=== PATIENT | male | born 1945 | race Caucasian/White ===

== ENCOUNTER → 2018-04-02 09:38 | Outpatient (CLI) | payer MEDICARE, OTHER, SELFPAY ==
--- NOTE | 2018-04-02 | DI.CT.S_ITS ---
PROCEDURE: CT HEAD/BRAIN WO CON INDICATIONS: HEADACHES TECHNIQUE: Noncontrast 4.5 mm thick angled axial sections acquired from the foramen magnum to the vertex, with coronal and sagittal reformats. For radiation dose reduction, the following was used: automated exposure control, adjustment of mA and/or kV according to patient size. COMPARISON: None. FINDINGS: Image quality: Excellent. CSF spaces: Basal cisterns are patent. No extra-axial fluid collections. The ventricles are symmetric in size and shape. Brain: No intracranial bleeds or masses. There is cerebral volume loss for age, with resultant ventricular and sulcal prominence. There are periventricular and deep white matter chronic small vessel ischemic changes. There is intracranial internal carotid artery atherosclerosis. Skull and face: Calvarium and visualized facial bones appear intact, without suspicious lesions. Sinuses: Visualized sinuses and mastoids are clear. IMPRESSION: Negative examination as above Dictated by: Sergio Hanna M.D. on 04/02/2018 at 10:08 Approved by: Sergio Hanna M.D. on 04/02/2018 at 10:10
--- NOTE | 2018-04-02 | DI.CT.S_ITS ---
PROCEDURE: CT SINUS SCREEN WO CON INDICATIONS: HEADACHES TECHNIQUE: Noncontrast 3.0 mm axial images acquired from the frontal sinuses to the mid-sella, with coronal and sagittal reformats. For radiation dose reduction, the following was used: automated exposure control, adjustment of mA and/or kV according to patient size. COMPARISON: [facility], MR, BRAIN WITHOUT CONTRAST, 12/07/2010, 14:09. [facility], CT, CT HEAD/BRAIN WO CON, 04/02/2018, 9:38. FINDINGS: Image quality: Excellent. Maxillary Sinuses: There is absence of portions of the medial cordero of the maxillary sinuses. Mucosal thickening is seen inferiorly. Ethmoid Air Cells: No bony remodeling or destruction. Moderate mucosal thickening is seen within the ethmoid air cells. Sphenoid Sinuses: No bony remodeling or destruction. Mild mucosal thickening is seen involving the anterior right sphenoid sinus. Frontal Sinuses: No bony remodeling or destruction. Sinuses are clear. Ostiomeatal Complexes: Ostiomeatal complexes are patent. However, they are constitutionally narrowed by infraorbital air cells. Miscellaneous: Visualized intra-orbital contents are normal. No michael bullosa or paradoxical turbinate curvature. There is moderate rightward nasal septal deviation. Note is made of bilateral lens replacements. IMPRESSION: Scattered areas of paranasal sinus disease can be seen. Absence of portions of the medial cordero of the maxillary sinuses. Please correlate with prior postoperative history. Differential diagnosis includes prior prominent inflammatory change. Constitutionally narrowed (yet patent) ostiomeatal complexes. Moderate rightward nasal septal deviation. Dictated by: Chalino Krishnamurthy M.D. on 04/02/2018 at 10:00 Approved by: Chalino Krishnamurthy M.D. on 04/02/2018 at 10:04
== END ==
PROVIDERS: PCP Family Medicine; Visit Provider Family Medicine
DX: R51 Headache (principal); J34.2 Deviated nasal septum; J32.4 Chronic pansinusitis
CPT/HCPCS: 70450; 70486

== ENCOUNTER → 2020-02-29 16:13 | Outpatient (CLI) | payer MEDICARE, OTHER, SELFPAY ==
--- NOTE | 2020-02-29 | DI.RAD.S_ITS ---
PROCEDURE: XR CHEST 2V INDICATIONS: SHORNTESS OF BREATH TECHNIQUE: 2 views of the chest were acquired. COMPARISON: [facility], CHEST 2 VIEW, 07/14/2017, 13:04. [facility], CHEST 2 VIEW, 12/04/2012, 8:33. FINDINGS: Surgical changes and devices: None. Lungs and pleura: Lungs are clear except for a slight degree of interstitial prominence. No pleural effusions or pneumothorax. Mediastinum: Mediastinal contours are normal. Heart size is normal. Bones and chest wall: No suspicious bony abnormalities. Soft tissues appear unremarkable. IMPRESSION: Mild interstitial prominence, no pneumonia seen. Dictated by: Jefferson Davis M.D. on 02/29/2020 at 16:37 Approved by: Jefferson Davis M.D. on 02/29/2020 at 16:38
== END ==
PROVIDERS: PCP Family Medicine; Referring Provider Family Medicine; Visit Provider Family Medicine
DX: R06.02 Shortness of breath (principal)
CPT/HCPCS: 71046

== ENCOUNTER → 2020-03-14 12:35 | Outpatient (CLI) | payer MEDICARE, OTHER, SELFPAY ==
[2020-03-15 17:05] LABS: COVID19 Sendout Not Detected (Not Detect)
== END ==
PROVIDERS: PCP Family Medicine; Visit Provider Nurse Practitioner
DX: Z11.59 Encounter for screening for other viral diseases (principal)
CPT/HCPCS: 87635

== ENCOUNTER → 2020-03-17 12:41 | Outpatient (CLI) | payer MEDICARE, OTHER, SELFPAY ==
--- NOTE | 2020-03-22 16:43 | PM.PFT.1 ---
Pulmonary Function Test Referral & Results Date Patient Seen: 03/17/20 Requesting provider: Ras Jay Results: The spirometry demonstrates an FVC of 2.66 L which is 61% of predicted. The FEV1 was measured at 1.66 L which is 52% of predicted. The FEV1/FVC ratio was 62 which is 85% of predicted. Following the administration of bronchodilator there was a 23% improvement in FEV1 and a 99% improvement in FEF 25-75%. Lung volumes show an SVC of 3.26 L which is 71% of predicted. The diffusing capacity was measured at 18.60 which is 57% of predicted. No hemoglobin value was provided, so no correction for potential anemia could be made, if appropriate. The maximum voluntary ventilation was reduced Interpretation: This study demonstrates moderately severe obstructive lung disease based on reduction FEV1. There is evidence of significant benefit following bronchodilator based on improvement in FEV1 and FEF 25-75% There is also [id number] restrictive lung disease based on reduction in SVC There is also [id number] reduction in diffusing capacity suggesting element of disease at the capillary alveolar level Altogether this is consistent with a diagnosis of COPD
== END ==
PROVIDERS: PCP Family Medicine; Referring Provider Family Medicine; Visit Provider Family Medicine
DX: R06.02 Shortness of breath (principal); J98.8 Other specified respiratory disorders; Z87.891 Personal history of nicotine dependence
CPT/HCPCS: 94060; 94726; 94729

== ENCOUNTER → 2020-03-23 14:40 | Outpatient (CLI) | payer MEDICARE, OTHER, SELFPAY ==
--- NOTE | 2020-03-23 15:00 | DI.ECHO.S_ITS ---
Echocardiogram Report + + :Name: ROSE MARIE LAMA Study Date: 03/23/2020 Height: 70 in : :[facility] Weight: 187 lb : : Gender: Male BSA: 2.0 m2 : :: 1945 Age: 74 yrs BP: 137/89 mmHg: :Reason For Study: SHORTNESS OF BREATH : :Ordering Physician: CLAUDETTE, : :CARMELO HAYWOOD Performed By: Alexandra Cardona : :Referring: CARMELO WILKINS MD : + + Interpretation Summary Left ventricular wall thickness is mildly increased. Left ventricular systolic function is normal without focal wall motion abnormalities. The ejection fraction is estimated to be 55-60%. Diastolic parameters suggest a relaxation abnormality of the left ventricle, consistent with probable normal filling pressures. The right ventricle is normal size. Right ventricular systolic function is at the lower limits of normal. The right ventricular systolic pressure is estimated to be at least 27 mmHg based on an estimated right atrial pressure of 3 mm Hg. Both atria are normal in size. There is mild to moderate mitral regurgitation. There is mild to moderate tricuspid regurgitation. There is no other significant valvular heart disease. The ascending aorta is mildly enlarged. Procedure: A two-dimensional transthoracic echocardiogram with color flow and Doppler was performed. The study quality was technically adequate. There is no prior echocardiogram noted for this patient. Left Ventricle: The left ventricle is normal in size. Left ventricular wall thickness is mildly increased. Left ventricular systolic function is normal without focal wall motion abnormalities. The ejection fraction is estimated to be 55-60%. Diastolic parameters suggest a relaxation abnormality of the left ventricle, consistent with probable normal filling pressures. Right Ventricle: The right ventricle is normal size. Right ventricular systolic function is at the lower limits of normal. Atria: Both atria are normal in size. There is no Doppler evidence for an interatrial shunt. Mitral Valve: The mitral valve is normal in structure but abnormal in function. There is mild to moderate mitral regurgitation. Aortic Valve: The aortic valve is trileaflet. The aortic valve opens well. The aortic valve is slightly calcified. There is no aortic valve stenosis. There is trace aortic regurgitation. Tricuspid Valve: The tricuspid valve leaflets are thin and pliable. The right ventricular systolic pressure is estimated to be at least 27 mmHg based on an estimated right atrial pressure of 3 mm Hg. There is mild to moderate tricuspid regurgitation. Pulmonic Valve: The pulmonic valve is not well seen, but is grossly normal. There is no pulmonic valvular regurgitation. There is no other significant valvular heart disease. Great Vessels: The aortic root is normal size. The ascending aorta is mildly enlarged. The IVC is of normal diameter and collapses greater than 50% with a sniff. This suggests a low right atrial pressure of 3 mm Hg. Pericardium/ Pleura There is no pericardial effusion. There is no pleural effusion. MMode/2D Measurements & Calculations LVIDd: 4.8 cm LVOT diam: 2.1 cm LVIDs: 3.4 cm Ao root diam: 3.6 cm FS: 29.3 % asc Aorta Diam: 3.7 cm EPSS: 1.1 cm Ao Arch Diam (Prox Trans): 3.2 cm IVSd: 1.1 cm LVPWd: 0.89 cm LV lynn. diameter/BSA (cm/m^2): 2.4 LV sys. diameter/BSA (cm/m^2): 1.7 LA A2 area: 16.8 cm2 RA long axis: 5.6 cm LA A4 area: 15.4 cm2 RA area: 15.0 cm2 LA length (vol): 4.6 cm RA vol: 33.9 ml LA vol: 47.4 ml RA : 16.7 ml/m2 LA vol index: 23.3 ml/m2 IVC diam: 1.9 cm RVD1 (basal): 2.8 cm TAPSE: 1.6 cm Doppler Measurements & Calculations Ao V2 max: 117.2 cm/sec LVOT Max Piero: 84.7 cm/sec Ao V2 mean: 82.1 cm/sec LV V1 max P.9 mmHg Ao max P.5 mmHg LV V1 VTI: 16.5 cm Ao mean P.0 mmHg LIZZ(I,D): 2.3 cm2 Ao V2 VTI: 25.3 cm LIZZ(V,D): 2.5 cm2 sev ratio: 0.65 LIZZ indexed to BSA (cm^2/m^2): 1.1 MV E max piero: 56.7 cm/sec TR max piero: 244.9 cm/sec MV A max piero: 76.8 cm/sec TR max P.0 mmHg MV E/A: 0.74 PA V2 max: 66.1 cm/sec Med Peak E' Piero: 8.2 cm/sec PA V2 mean: 44.3 cm/sec E/E' med: 6.9 PA mean P.91 mmHg Lat Peak E' Piero: 9.3 cm/sec PA pr(Accel): 31.0 mmHg E/E' lat: 6.1 E/e' average: 6.5 MV dec time: 0.19 sec SV(LVOT): 57.4 ml Reading Physician:07:54 PM
== END ==
PROVIDERS: PCP Family Medicine; Referring Provider Family Medicine; Visit Provider Family Medicine
DX: I08.1 Rheumatic disorders of both mitral and tricuspid valves (principal); I77.89 Other specified disorders of arteries and arterioles; R06.02 Shortness of breath
CPT/HCPCS: 93306

== ENCOUNTER 2020-09-16 09:27 | Emergency (ER) | payer MEDICARE, OTHER, SELFPAY ==
[2020-09-16] VITALS (17 sets, daily range): BP systolic 92–124; BP diastolic 57–69; PULSE 70–90; RESP 13–33; TEMP 36.4; O2SAT 92–100
--- NOTE | 2020-09-16 09:34 | PC.NURSE ---
Medication reconciliation completed however pt unsure of medications and doses/ updated to the best of his memory
--- NOTE | 2020-09-16 09:39 | DI.CT.S_ITS ---
PROCEDURE: CT ABDOMEN PELVIS W CON INDICATIONS: diarrhea, no pain, near syncope TECHNIQUE: After the administration of intravenous contrast, 5 mm thick sections acquired from the diaphragm to the symphysis. 5 mm coronal and sagittal reformats were acquired. For radiation dose reduction, the following was used: automated exposure control, adjustment of mA and/or kV according to patient size. COMPARISON: None. FINDINGS: Image quality: Excellent. ABDOMEN: Lung bases: Lung bases are clear. Heart size is normal. Solid organs: Liver is normal in size . Hepatic steatosis is seen. Gallbladder is surgically absent. Biliary system is non dilated. Pancreas enhances normally. Spleen is normal in size and enhancement. No adrenal nodules. Kidneys demonstrate normal size and enhancement, without hydronephrosis. Bilateral nonobstructing renal calculi are seen measures up to 5 millimeter in size in upper pole of right kidney. There is also a 2.9 cm cyst seen in upper pole of left kidney. Peritoneum and bowel: There is no bowel obstruction. Mild diffuse colonic wall thickening and edema is seen without significant pericolonic fat stranding. No abscess collection. No free fluid or free air. Mild to moderate sigmoid diverticulosis is seen, no CT evidence of acute diverticulitis. Nodes and vessels: No retroperitoneal or mesenteric adenopathy by size criteria. Aorta and inferior vena cava are normal in size. Moderate atherosclerotic calcifications throughout abdominal aorta and bilateral iliac arteries are seen. Miscellaneous: No ventral hernias. PELVIS: Genitourinary: Mild diffuse bladder wall thickening is noted, no discrete bladder wall mass. Miscellaneous: No inguinal hernias . Subcentimeter lymph nodes are seen in bilateral inguinal region measures up to 9 mm in size in left inguinal region. No enlarged lymph nodes are seen. Bones: No suspicious bony lesions. No vertebral body compression fractures. Degenerative disc disease at L3-4 through L5-S1 levels are noted. IMPRESSION: 1. Finding is suggestive of mild infectious or inflammatory colitis with diffuse colonic wall thickening and edema. No abscess collection. No free fluid or free air. 2. Sigmoid diverticulosis without evidence of acute diverticulitis. 3. Bilateral nonobstructing renal calculi. Left renal cyst as above. No hydronephrosis. Nonspecific mild diffuse bladder wall thickening which may be due to partial distention. No discrete bladder wall mass. 4. Hepatic steatosis. Prior cholecystectomy. Dictated by: Arian Wesley M.D. on 09/16/2020 at 11:08 Approved by: Arian Wesley M.D. on 09/16/2020 at 11:16
[2020-09-16 09:46] LABS: Add Manual Diff / Slide Review NO; Basophils Absolute Auto 100 /uL (0-100); Basophils Percent Auto 0.8 % (0-2); Eosinophils Absolute Auto 200 /uL (0-450); Eosinophils Percent Auto 1.6 % (2-4); Hematocrit 44.7 % (41-53); Hemoglobin 15.1 g/dL (13.5-17.5); Lymphocytes Absolute Auto 1700 /uL (1100-4500); Lymphocytes Percent Auto 17.8 % (25-40); Mean Corpuscular HGB Conc 33.9 % (30-36); Mean Corpuscular Hemoglobin 30.3 PG (26-34); Mean Corpuscular Volume 89.4 fL (80-100); Monocytes Absolute Auto 600 /uL (0-900); Monocytes Percent Auto 6.9 % (3-14); Neutrophils Absolute Auto 6900 /uL (1500-7000); Neutrophils Percent Auto 72.9 % (50-75); Platelet Count 167 X10^3/uL (150-400); Red Cell Distribution Width 13.6 % (11.6-14.8); White Blood Cell Count 9.4 X10^3/uL (4.5-11.0)
[2020-09-16 09:54] LABS: Alanine Aminotransferase 39 IU/L (<50); Albumin 4.5 g/dL (3.5-5.0); Albumin Globulin Ratio 1.5 (1.0-2.8); Alkaline Phosphatase 67 U/L (38-126); Aspartate Aminotransferase 39 IU/L (17-59); BUN Creatinine Ratio 21.4 (6-22); Bilirubin Total 1.3 mg/dL (0.2-1.3); Blood Urea Nitrogen 34 mg/dL (9-20); Carbon Dioxide 25 mmol/L (22-32); Chloride 103 mmol/L (98-107); Creatine Kinase 75 U/L (55-170); Estimated Glomerular Filt Rate 42.8 mL/min (>60); Globulin 3.1 g/dL (1.7-4.1); Glucose 192 mg/dL (80-110); HEMOLYSIS < 15 (0-50); Lipase 98 U/L (23-300); Potassium 3.7 mmol/L (3.4-5.1); Sodium 138 mmol/L (137-145); Total Protein 7.6 g/dL (6.3-8.2)
[2020-09-16 10:06] LABS: Troponin I < 0.012 ng/mL (0.01-0.034)
[2020-09-16] MEDS: SODIUM CHLORIDE 0.9% 1,000 ML 1000 ML IV ×2 (10:07→13:12)
--- NOTE | 2020-09-16 10:25 | ED.SYNCOPE ---
HPI - Syncope General Chief Complaint: Syncope Stated Complaint: Diarrhea Time Seen by Provider: 09/16/20 09:29 Source: patient and EMS Mode of arrival: EMS Limitations: no limitations History of Present Illness HPI narrative: This is a 75-year-old male comes emergency department with approximately 36 hours of frequent diarrhea. Patient states for the 1st 24 hours he had diarrhea hourly with large amounts of watery stool. Patient did not appreciate any hematochezia or melena. He denies abdominal pain. He denies any nausea or vomiting. He denies any fevers or chills. Denies any back or flank pain. Patient has not had any issues with urination. He denies any chest pain or shortness of breath. Today while in the shower trying to clean up he states that he had a near syncopal event which he describes as ?going in an out and fell to his knees. He denies any other traumatic injury. He did not hit his head and from his description did not have a complete loss of consciousness. Patient has had chronic issues with diarrhea in the past. He states typically will be for several hours and had episode twice last week. He does take NSAID regularly, Arthrotec and daily. He is on metformin for diabetes, he takes medication for hypertension. He denies any prior abdominal surgeries. No tobacco, alcohol or illicit. He lives with his and another individual. Patient has not had any known sick contacts, he has not had any suspicious food or exposures, no other family members in the house have had similar symptoms. Related Data Home Medications Medication Instructions Recorded Confirmed diclofenac-misoprostol [Arthrotec 1 tab PO QDAY #0 01/19/11 09/16/20 75] telmisartan-hydrochlorothiazid 1 tab PO QDAY #0 01/19/11 09/16/20 [Micardis HCT] metformin 500 mg PO BID 09/16/20 09/16/20 Previous Rx's Medication Instructions Recorded amoxicillin-pot clavulanate 1 tab PO BID #20 tab 09/16/20 [Augmentin] Allergies Allergy/AdvReac Type Severity Reaction Status Date / Time No Known Drug Allergies Allergy Verified 09/16/20 09:31 Review of Systems Review of Systems ROS Unobtainable: All systems reviewed & are unremarkable except as noted in HPI and below Patient History Social History Smoking Status: Never smoker Smoking Status: Never smoker alcohol intake frequency: 0-2 drinks per day Substance Use Type: does not use Exam Narrative Exam Narrative: GENERAL: Alert and oriented x three, well-appearing elderly male in mild distress. HEENT: Head normocephalic, atraumatic, EOMI, pupils reactive, no conjunctival pallor, face symmetric, moist mucous membranes NECK: Supple, full range of motion CARDIOVASCULAR: Regular rate and rhythm without murmurs, rubs or gallops. RESPIRATORY: Breath sounds equal bilaterally, no wheezes rales or rhonchi. ABDOMEN: Soft, nontender. Nondistended. Normoactive bowel sounds all 4 quadrants. No guarding or rebound, rigidity, no mass. Stool occult is negative although very minimal stool was present. No melena hematochezia. : No CVA tenderness EXTREMITIES: Normal range of motion, no clubbing or edema. Neurovascularly intact NEUROLOGICAL: Cranial nerves II through XII grossly intact. Moving all extremities SKIN: Warm, dry, no petechiae, no rashes or lesions. Initial Vital Signs Initial Vital Signs: Vital Signs Pulse Rate 78 09/16/20 11:00 Respiratory Rate 14 09/16/20 11:00 Blood Pressure 104/62 09/16/20 11:00 Pulse Oximetry 95 09/16/20 11:00 Course Orders Ordered: ED Orders 09/16/20 09:30 COVID19 - ADMIT ([employer] swab/PCR) Stat 09/16/20 09:34 Complete Blood Count AUTO DIFF Stat Comprehensive Metabolic Panel Stat Lipase Stat Procalcitonin Stat Troponin & CK Cardiac Panel Stat Type and Screen Stat 09/16/20 09:39 CT abdomen pelvis w con Stat EKG-12 Lead Stat 09/16/20 10:19 GI Panel (Film Array) Stat Discontinued Medications Amoxicillin/Clavulanate Potassium (Amoxicillin/Clav 875/125 Mg) 1 tab PO NOW ONE Stop: 09/16/20 13:12 Last Admin: 09/16/20 13:14 Dose: 1 tab Documented by: PRANETEH Sodium Chloride (Normal Saline 0.9%) 1,000 mls @ 1,000 mls/hr IV BOLUS ONE Stop: 09/16/20 10:38 Last Infusion: 09/16/20 12:15 Dose: 0 mls/hr Documented by: Admin: 09/16/20 10:07 Dose: 1,000 mls/hr Documented by: PRANEETH Sodium Chloride (Normal Saline 0.9%) 1,000 mls @ 1,000 mls/hr IV BOLUS ONE Stop: 09/16/20 14:09 Last Infusion: 09/16/20 15:48 Dose: 0 mls/hr Documented by: Admin: 09/16/20 13:12 Dose: 1,000 mls/hr Documented by: PRANEETH Reevaluation(s) Reevaluation #1: patient improved but still feel shaky walking to bathroom. orthostatics 19 point drop from standing to laying but patient is comfortable with plan to hydrate, recheck orthostatics and if still improved plan for d/c home. Time: 13:10 Reevaluation #2: patient feels much better, his orthostatics are slowly improving and he has not completed fluids. Patient feels comfortable to return home. Plan for oral antibiotics and needs recheck renal function. Time: 14:49 Consultations Consultation #1: Spoke with Dr. Marrero hospitalist patient had a bump in their creatinine and does appear to have acute kidney injury. Patient does still feel shaky heart rate does help up about 19 point. Appears to have colitis on CT imaging with no other major changes. They recommended treating as an infectious colitis, a 2nd L of fluids and re-evaluation of orthostatics. If patient is still having significant changes orthostatic numbers would be happy to accept if patient is feeling much improved could potentially follow-up outpatient. Time: 13:04 Vital Signs Vital signs: Vital Signs - 8 hr 09/16/20 11:00 09/16/20 11:07 09/16/20 11:30 Temperature Pulse Rate 78 77 76 Pulse Rate [Orthostatic Lying] Pulse Rate [Orthostatic Sitting] Pulse Rate [Orthostatic Standing] Respiratory Rate 14 18 19 Blood Pressure 104/62 103/58 L Blood Pressure [Orthostatic Lying] Blood Pressure [Orthostatic Sitting] Blood Pressure [Orthostatic Standing] Pulse Oximetry 95 95 96 09/16/20 12:00 09/16/20 12:38 09/16/20 12:48 Temperature Pulse Rate 76 83 72 Pulse Rate [Orthostatic Lying] Pulse Rate [Orthostatic Sitting] Pulse Rate [Orthostatic Standing] Respiratory Rate 15 13 Blood Pressure 108/58 L 124/60 113/61 Blood Pressure [Orthostatic Lying] Blood Pressure [Orthostatic Sitting] Blood Pressure [Orthostatic Standing] Pulse Oximetry 95 94 96 09/16/20 12:50 09/16/20 12:52 09/16/20 13:00 Temperature Pulse Rate 81 89 73 Pulse Rate [Orthostatic Lying] Pulse Rate [Orthostatic Sitting] Pulse Rate [Orthostatic Standing] Respiratory Rate 21 23 15 Blood Pressure 104/67 94/62 101/65 Blood Pressure [Orthostatic Lying] Blood Pressure [Orthostatic Sitting] Blood Pressure [Orthostatic Standing] Pulse Oximetry 95 96 95 09/16/20 13:30 09/16/20 14:00 09/16/20 14:30 Temperature Pulse Rate 71 71 78 Pulse Rate [Orthostatic Lying] Pulse Rate [Orthostatic Sitting] Pulse Rate [Orthostatic Standing] Respiratory Rate 15 16 33 H Blood Pressure 102/63 92/59 L Blood Pressure [Orthostatic Lying] Blood Pressure [Orthostatic Sitting] Blood Pressure [Orthostatic Standing] Pulse Oximetry 95 94 94 09/16/20 14:32 09/16/20 14:34 09/16/20 14:38 Temperature Pulse Rate 84 89 Pulse Rate [Orthostatic Lying] 76 Pulse Rate [Orthostatic Sitting] 85 Pulse Rate [Orthostatic Standing] 90 Respiratory Rate 17 33 H Blood Pressure 104/63 101/57 L Blood Pressure [Orthostatic Lying] 92/59 L Blood Pressure [Orthostatic Sitting] 104/63 Blood Pressure [Orthostatic Standing] 101/57 L Pulse Oximetry 97 92 09/16/20 15:00 09/16/20 15:49 Temperature 97.6 F Pulse Rate 71 70 Pulse Rate [Orthostatic Lying] Pulse Rate [Orthostatic Sitting] Pulse Rate [Orthostatic Standing] Respiratory Rate 14 14 Blood Pressure 115/68 111/69 Blood Pressure [Orthostatic Lying] Blood Pressure [Orthostatic Sitting] Blood Pressure [Orthostatic Standing] Pulse Oximetry 97 100 MDM - Syncope Lab Data Attestation: I reviewed the patient's lab results. Result diagrams: 09/16/20 09:34 09/16/20 09:34 Labs: Lab Results 09/16/20 09/16/20 09/16/20 Range/Units 09:30 09:34 09:34 WBC 9.4 (4.5-11.0) X10^3/uL RBC 5.00 (4.5-5.9) X10^6/uL Hgb 15.1 (13.5-17.5) g/dL Hct 44.7 (41-53) % MCV 89.4 (80-100) fL MCH 30.3 (26-34) PG MCHC 33.9 (30-36) % RDW 13.6 (11.6-14.8) % Plt Count 167 (150-400) X10^3/uL Neut % (Auto) 72.9 (50-75) % Lymph % (Auto) 17.8 L (25-40) % [place] % (Auto) 6.9 (3-14) % Eos % (Auto) 1.6 L (2-4) % Baso % (Auto) 0.8 (0-2) % Neut # (Auto) 6900 (2655-1274) /uL Lymph # (Auto) 1700 (1673-5871) /uL [place] # (Auto) 600 (0-900) /uL Eos # (Auto) 200 (0-450) /uL Baso # (Auto) 100 (0-100) /uL Sodium 138 (137-145) mmol/L Potassium 3.7 (3.4-5.1) mmol/L Chloride 103 (98-107) mmol/L Carbon Dioxide 25 (22-32) mmol/L BUN 34 H (9-20) mg/dL Creatinine 1.59 H (0.66-1.25) mg/dL Estimated GFR 42.8 L (>60) mL/min BUN/Creatinine Ratio 21.4 (6-22) Glucose 192 H (80-110) mg/dL Calcium 9.0 (8.4-10.2) mg/dL Total Bilirubin 1.3 (0.2-1.3) mg/dL AST 39 (17-59) IU/L ALT 39 (<50) IU/L Alkaline Phosphatase 67 (38-126) U/L Total Creatine Kinase 75 (55-170) U/L CK-MB (CK-2) TNP CK-MB (CK-2) Rel Index TNP Troponin I < 0.012 (0.01-0.034) ng/mL Total Protein 7.6 (6.3-8.2) g/dL Albumin 4.5 (3.5-5.0) g/dL Globulin 3.1 (1.7-4.1) g/dL Albumin/Globulin Ratio 1.5 (1.0-2.8) Lipase 98 (23-300) U/L Procalcitonin (<0.5) ng/mL Stl C. cayetanensis PCR (Not Detect) Stool Rotavirus (PCR) (Not Detect) Stool Adenovirus (PCR) (Not Detect) Stool Astrovirus (PCR) (Not Detect) Stool Cryptosporidium PCR (Not Detect) Stl E.coli Shiga Tox PCR (Not Detect) St Sh/Enteroin Ecoli PCR (Not Detect) Stool E coli O157 PCR (Not Detect) Stl Enterotoxigenic E PCR (Not Detect) Stool EPEC (PCR) (Not Detect) Stl E. histolytica PCR (Not Detect) Stool Giardia Lamblia PCR (Not Detect) Stool Sapovirus (PCR) (Not Detect) Stl P. shigelloides PCR (Not Detect) St Y.enterocolitica PCR (Not Detect) Stool Vibrio (PCR) (Not Detect) Stl Vibrio cholerae PCR (Not Detect) Stl Enteroaggr Ecoli PCR (Not Detect) Stl Norovirus GI/GII PCR (Not Detect) Campylobacter (PCR) (Not Detect) C. difficile Tox (PCR) (Not Detect) SARS-CoV-2 (PCR) Negative (Negative) Salmonella (PCR) (Not Detect) Blood Type Antibody Screen 09/16/20 09/16/20 09/16/20 Range/Units 09:34 09:34 10:19 WBC (4.5-11.0) X10^3/uL RBC (4.5-5.9) X10^6/uL Hgb (13.5-17.5) g/dL Hct (41-53) % MCV (80-100) fL MCH (26-34) PG MCHC (30-36) % RDW (11.6-14.8) % Plt Count (150-400) X10^3/uL Neut % (Auto) (50-75) % Lymph % (Auto) (25-40) % [place] % (Auto) (3-14) % Eos % (Auto) (2-4) % Baso % (Auto) (0-2) % Neut # (Auto) (7380-0239) /uL Lymph # (Auto) (4458-2097) /uL [place] # (Auto) (0-900) /uL Eos # (Auto) (0-450) /uL Baso # (Auto) (0-100) /uL Sodium (137-145) mmol/L Potassium (3.4-5.1) mmol/L Chloride (98-107) mmol/L Carbon Dioxide (22-32) mmol/L BUN (9-20) mg/dL Creatinine (0.66-1.25) mg/dL Estimated GFR (>60) mL/min BUN/Creatinine Ratio (6-22) Glucose (80-110) mg/dL Calcium (8.4-10.2) mg/dL Total Bilirubin (0.2-1.3) mg/dL AST (17-59) IU/L ALT (<50) IU/L Alkaline Phosphatase (38-126) U/L Total Creatine Kinase (55-170) U/L CK-MB (CK-2) CK-MB (CK-2) Rel Index Troponin I (0.01-0.034) ng/mL Total Protein (6.3-8.2) g/dL Albumin (3.5-5.0) g/dL Globulin (1.7-4.1) g/dL Albumin/Globulin Ratio (1.0-2.8) Lipase (23-300) U/L Procalcitonin 0.09 (<0.5) ng/mL Stl C. cayetanensis PCR Not detected (Not Detect) Stool Rotavirus (PCR) Not detected (Not Detect) Stool Adenovirus (PCR) Not detected (Not Detect) Stool Astrovirus (PCR) Not detected (Not Detect) Stool Cryptosporidium PCR Not detected (Not Detect) Stl E.coli Shiga Tox PCR Not detected (Not Detect) St Sh/Enteroin Ecoli PCR Not detected (Not Detect) Stool E coli O157 PCR Not detected (Not Detect) Stl Enterotoxigenic E PCR Not detected (Not Detect) Stool EPEC (PCR) Not detected (Not Detect) Stl E. histolytica PCR Not detected (Not Detect) Stool Giardia Lamblia PCR Not detected (Not Detect) Stool Sapovirus (PCR) Not detected (Not Detect) Stl P. shigelloides PCR Not detected (Not Detect) St Y.enterocolitica PCR Not detected (Not Detect) Stool Vibrio (PCR) Not detected (Not Detect) Stl Vibrio cholerae PCR Not detected (Not Detect) Stl Enteroaggr Ecoli PCR Not detected (Not Detect) Stl Norovirus GI/GII PCR Not detected (Not Detect) Campylobacter (PCR) Not detected (Not Detect) C. difficile Tox (PCR) Not detected (Not Detect) SARS-CoV-2 (PCR) (Negative) Salmonella (PCR) Not detected (Not Detect) Blood Type O Positive Antibody Screen Negative Point of Care Testing Glucose POC 164 Urine Dip Bedside Urine Glucose Negative Bedside Urine Bilirubin - Negative Bedside Urine Ketone - Negative Urine Specific [place] 1.010 Bedside Urine Occult Blood - Negative Bedside Urine pH 5.0 Bedside Urine Protein - Negative Bedside Urine Urobilinogen - Negative Bedside Urine Leukocytes - Negative Esterase Imaging Data CT scan - abdomen/pelvis: Radiologist's Impression: [address] [id number] Scan ReportSigned Patient: Isidro Graves WMR#: [id number]: [id number]:[id number]/Sex: 75 / MDate of Service: 09/16/20Loc: EDAccession Number: [id number] Procedure: CT abdomen pelvis w con Ordering Provider: Louise Pelaez D.O. PROCEDURE: CT ABDOMEN PELVIS W CON INDICATIONS: diarrhea, no pain, near syncope TECHNIQUE: After the administration of intravenous contrast, 5 mm thick sections acquired from the diaphragm to the symphysis. 5 mm coronal and sagittal reformats were acquired. For radiation dose reduction, the following was used: automated exposure control, adjustment of mA and/or kV according to patient size. COMPARISON: None. FINDINGS: Image quality: Excellent. ABDOMEN: Lung bases: Lung bases are clear. Heart size is normal. Solid organs: Liver is normal in size . Hepatic steatosis is seen. Gallbladder is surgically absent. Biliary system is non dilated. Pancreas enhances normally. Spleen is normal in size and enhancement. No adrenal nodules. Kidneys demonstrate normal size and enhancement, without hydronephrosis. Bilateral nonobstructing renal calculi are seen measures up to 5 millimeter in size in upper pole of right kidney. There is also a 2.9 cm cyst seen in upper pole of left kidney. Peritoneum and bowel: There is no bowel obstruction. Mild diffuse colonic wall thickening and edema is seen without significant pericolonic fat stranding. No abscess collection. No free fluid or free air. Mild to moderate sigmoid diverticulosis is seen, no CT evidence of acute diverticulitis. Nodes and vessels: No retroperitoneal or mesenteric adenopathy by size criteria. Aorta and inferior vena cava are normal in size. Moderate atherosclerotic calcifications throughout abdominal aorta and bilateral iliac arteries are seen. Miscellaneous: No ventral hernias. PELVIS: Genitourinary: Mild diffuse bladder wall thickening is noted, no discrete bladder wall mass. Miscellaneous: No inguinal hernias . Subcentimeter lymph nodes are seen in bilateral inguinal region measures up to 9 mm in size in left inguinal region. No enlarged lymph nodes are seen. Bones: No suspicious bony lesions. No vertebral body compression fractures. Degenerative disc disease at L3-4 through L5-S1 levels are noted. IMPRESSION: 1. Finding is suggestive of mild infectious or inflammatory colitis with diffuse colonic wall thickening and edema. No abscess collection. No free fluid or free air. 2. Sigmoid diverticulosis without evidence of acute diverticulitis. 3. Bilateral nonobstructing renal calculi. Left renal cyst as above. No hydronephrosis. Nonspecific mild diffuse bladder wall thickening which may be due to partial distention. No discrete bladder wall mass. 4. Hepatic steatosis. Prior cholecystectomy. Dictated by: Arian Wesley M.D. on 09/16/2020 at 11:08 Approved by: Arian Wesley M.D. on 09/16/2020 at 11:16 ECG Data Attestation: I personally reviewed and interpreted this ECG as follows: Prior ECG tracings: available for review Interpretation: Sinus rhythm left axis deviation nonspecific T-wave abnormality. Ventricular rate of 70 OH interval 156 QRS of 100 and QTC of 403. Patient has prior EKG from 07/14/2017 which appears similar except for in lead 2. [facility] Narrative Medical decision making narrative: This is a 75-year-old male who has had 36 hours of diarrhea but no abdominal pain. Patient is able to give a stool sample which was negative here, CT shows colitis. Patient did have a bump in his creatinine likely from dehydration. He had a near syncopal episode and was hypotensive upon arrival. After fluids his pressures have improved his orthostatics are improving, patient is feeling significantly better. After an additional L of fluids patient feels safe to return home. I did ask that he have a recheck of his renal function over the next 2 days and was given an order to have this done. Patient is to have a low threshold to return. He was started on oral antibiotics as there is a possibility this could be infectious colitis although his procalcitonin is negative. Discharge Plan Departure Patient Disposition: Home Clinical Impression: Diarrhea, Dehydration, CRISTOFER (acute kidney injury), Colitis Instructions: DI for Colitis Activity Restrictions/Additional Instructions: Follow up with your physician at the beginning of the week for recheck. Your renal function is decreased today likely secondary to dehydration. You should have your renal function will be checked next 24-48 hours. Take antibiotics until completely gone. Continue to hydrate regularly and drink plenty of fluids. Return to the ER for fevers greater than 100.4 F, recurrent lightheadedness or passing out, chest pain or shortness of breath, persistent vomiting, black or bloody stools, persistent diarrhea or signs of dehydration or other new or concerning symptoms. Prescriptions: New amoxicillin-pot clavulanate [Augmentin] 875-125 mg tablet 1 tab PO BID Qty: 20 RF: 0 No Action diclofenac-misoprostol [Arthrotec 75] 75 MG/200 MCG tablet,IR,delayed rel,biphasic 1 tab PO QDAY Qty: 0 RF: 0 telmisartan-hydrochlorothiazid [Micardis HCT] 80 MG/25 MG tablet 1 tab PO QDAY Qty: 0 RF: 0 metformin 500 mg tablet 500 mg PO BID RF: 0 Referrals: Ras Jay MD [Primary Care Provider] -
[2020-09-16 11:19] LABS: COVID19 - ADMIT (NP swab/PCR) Negative (Negative)
[2020-09-16 11:57] LABS: Campylobacter Not Detected (Not Detect); Clostridium difficile toxin AB Not Detected (Not Detect); Cryptosporidium Not Detected (Not Detect); Cyclospora cayetanensis Not Detected (Not Detect); Entamoeba histolytica Not Detected (Not Detect); Enteroaggregative E.coli Not Detected (Not Detect); Enteropathogenic E.coli Not Detected (Not Detect); Enterotoxigenic E.coli It/st Not Detected (Not Detect); Plesiomonsa shigelloides Not Detected (Not Detect); Salmonella Not Detected (Not Detect); Shiga-like toxin-prod E.coli Not Detected (Not Detect); Shigella/Enteroinvasive E.coli Not Detected (Not Detect); Vibrio Not Detected (Not Detect); Vibrio cholerae Not Detected (Not Detect); Yersinia enterocolitica Not Detected (Not Detect)
[2020-09-16 11:58] LABS: Adenovirus F 40/41 Not Detected (Not Detect); Astrovirus Not Detected (Not Detect); Giardia lamblia Not Detected (Not Detect); Norovirus GI/GII Not Detected (Not Detect); Rotavirus A Not Detected (Not Detect); Sapovirus Not Detected (Not Detect)
[2020-09-16 12:00] LABS: Procalcitonin 0.09 ng/mL (<0.5)
[2020-09-16] MEDS: AMOXICILLIN/CLAV 875/125 MG 1 TAB PO (13:14)
== END 2020-09-16 15:50 | disposition home or self-care (01) ==
PROVIDERS: Emergency Provider Emergency Medicine; PCP Family Medicine; Referring Provider Emergency Medicine
DX: N17.9 Acute kidney failure, unspecified (principal); K52.9 Noninfective gastroenteritis and colitis, unspecified; E86.0 Dehydration; R55 Syncope and collapse; Z20.822 Contact with and (suspected) exposure to COVID-19
CPT/HCPCS: 74177; 80053; 81003; 82550; 83690; 84145; 84484; 85025; 86850; 86900; 86901; 87507; 87635; 93005; 96360; 96361; 99283; 99284

== ENCOUNTER → 2020-09-19 11:04 | Outpatient (CLI) | payer MEDICARE, OTHER, SELFPAY ==
[2020-09-19 11:45] LABS: BUN Creatinine Ratio 12.5 (6-22); Blood Urea Nitrogen 12 mg/dL (9-20); Calcium 9.2 mg/dL (8.4-10.2); Carbon Dioxide 30 mmol/L (22-32); Chloride 102 mmol/L (98-107); Estimated Glomerular Filt Rate > 60.0 mL/min (>60); Glucose 134 mg/dL (80-110); HEMOLYSIS < 15 (0-50); Potassium 3.4 mmol/L (3.4-5.1); Sodium 139 mmol/L (137-145)
== END ==
PROVIDERS: PCP Family Medicine; Referring Provider Family Medicine; Visit Provider Emergency Medicine
DX: N17.9 Acute kidney failure, unspecified (principal)
CPT/HCPCS: 36415; 80048

== ENCOUNTER → 2022-12-20 16:28 | Outpatient (CLI) | payer MEDICARE, OTHER, SELFPAY ==
--- NOTE | 2022-12-20 16:31 | DI.RAD.S_ITS ---
PROCEDURE: XR KNEE RT 3V INDICATIONS: PAIN IN LT/RT KNEE TECHNIQUE: 3 views of the knee were acquired. COMPARISON: None. FINDINGS: Bones: No fractures or dislocations. No suspicious bony lesions. Moderate tricompartmental arthritic change. Minimal periarticular osteophytes are present. No erosions. Soft tissues: No joint effusion. No suspicious soft tissue calcifications. IMPRESSION: Tricompartmental arthritic change. Dictated by: Marge Mtz M.D. on 12/21/2022 at 10:26 Approved by: Marge Mtz M.D. on 12/21/2022 at 11:23
--- NOTE | 2022-12-20 16:32 | DI.RAD.S_ITS ---
PROCEDURE: XR CHEST 2V INDICATIONS: HYPERTENSION TECHNIQUE: 2 views of the chest were acquired. COMPARISON: Located Within [facility], [place], XR CHEST 2V, 02/29/2020, 16:17. Located Within [facility], [place], CHEST 2 VIEW, 07/14/2017, 13:04. FINDINGS: Surgical changes and devices: Cholecystectomy clips. Lungs and pleura: Lungs appear clear. No pleural effusions or pneumothorax. Mediastinum: Mediastinal contours are normal. Heart size is normal. Bones and chest wall: No suspicious bony abnormalities. Soft tissues appear unremarkable. IMPRESSION: No acute cardiopulmonary abnormality identified. Dictated by: Cholo Loza M.D. on 12/21/2022 at 8:40 Approved by: Cholo Loza M.D. on 12/21/2022 at 8:42
--- NOTE | 2022-12-20 16:32 | DI.RAD.S_ITS ---
PROCEDURE: XR KNEE LT 3V INDICATIONS: PAIN IN LT/RT KNEE TECHNIQUE: 3 views of the knee were acquired. COMPARISON: None. FINDINGS: Bones: No fractures or dislocations. No suspicious bony lesions. Moderate tricompartmental arthritic change. Minimal periarticular osteophytes. No erosions. Soft tissues: Mild joint effusion. No suspicious soft tissue calcifications. IMPRESSION: Tricompartmental arthritic change. Dictated by: Marge Mtz M.D. on 12/21/2022 at 11:23 Approved by: Marge Mtz M.D. on 12/21/2022 at 11:24
== END ==
PROVIDERS: PCP Family Medicine; Referring Provider Family Medicine; Visit Provider Family Medicine
DX: M25.561 Pain in right knee (principal); M25.562 Pain in left knee; I10 Essential (primary) hypertension
CPT/HCPCS: 71046; 73562

== ENCOUNTER → 2023-02-28 13:10 | Outpatient (CLI) | payer MEDICARE, OTHER, SELFPAY ==
--- NOTE | 2023-02-28 | DI.RAD.S_ITS ---
PROCEDURE: XR LUMBAR SPINE 2-3V INDICATIONS: Low back pain, unspecified TECHNIQUE: 3 views of the lumbar spine were acquired. COMPARISON: None. FINDINGS: Bones: 5 [id number] vertebrae are present. Mild dextrocurvature of the lumbar spine. Minimal anterolisthesis of L3 on L4. There is multilevel facet arthropathy, worse at L4-5 and L5-S1. Mild multilevel disc height loss with degenerative endplate changes and spurring is present. This is most pronounced at L4-5. No vertebral body compression fractures. No suspicious bony lesions. Soft tissues: Overlying bowel gas pattern is normal. No suspicious soft tissue calcifications. Right upper quadrant surgical clips. Atherosclerotic vascular calcifications. IMPRESSION: Multilevel degenerative changes of the lumbar spine. Dictated by: Chong Yi M.D. on 02/28/2023 at 14:41 Approved by: Chong Yi M.D. on 02/28/2023 at 14:42
--- NOTE | 2023-02-28 | DI.RAD.S_ITS ---
PROCEDURE: XR HIP W PEL IF DONE RT 2V INDICATIONS: Low back pain, unspecified TECHNIQUE: AP pelvis with lateral view(s) of the right hip(s). COMPARISON: [facility], , HIP 2V RIGHT, 06/21/2008, 13:29. FINDINGS: Bones: No fractures or dislocations. Pelvic ring appears intact. No suspicious bony lesions. Mild osteoarthritic changes of the hips with joint space narrowing and marginal spurring. Soft tissues: The visualized bowel gas pattern is normal. No suspicious soft tissue calcifications. Calcifications project just inferior to the right hip joint. IMPRESSION: No acute osseous abnormalities. Mild degenerative changes of the bilateral hips. Soft tissue calcifications projecting just inferior to the right hip joint. Dictated by: Chong Yi M.D. on 02/28/2023 at 14:24 Approved by: Chong Yi M.D. on 02/28/2023 at 14:26
== END ==
PROVIDERS: PCP Family Medicine; Referring Provider Family Medicine; Visit Provider Family Medicine
DX: M47.816 Spondylosis without myelopathy or radiculopathy, lumbar region (principal); M54.50 Low back pain, unspecified
CPT/HCPCS: 72100; 73502

== ENCOUNTER → 2023-12-15 12:04 | Outpatient (CLI) | payer MEDICARE, SELFPAY ==
--- NOTE | 2023-12-15 12:06 | DI.MRI.S_ITS ---
PROCEDURE: MR LUMBAR SPINE WO CON INDICATIONS: radiculopathy, lumbar region TECHNIQUE: Noncontrast sagittal T1 spin echo and T2 fast echo, sagittal STIR, and T2 fast spin echo through the lumbar spine. In cases with scoliosis, additional coronal T2 fast spin echo may be performed. COMPARISON: None. FINDINGS: Image quality: Excellent. Alignment and Curvature: Levo scoliotic curvature of the lower lumbar spine. Grade 1 anterolisthesis of L4 on L5. Bone Marrow: Degenerative endplate changes at L4-5. In the or Marrow is of normal overall signal. No acute vertebral body compression fractures. Spinal Cord: Conus medullaris terminates at the T12-L1 level. Visualized cord demonstrates normal signal and size. Paraspinous Soft Tissues: No paravertebral masses. T12-L1: Normal appearance. L1-L2: Disc desiccation. No central canal or neural foraminal stenosis. L2-L3: Disc desiccation height loss. Mild diffuse disc bulge. Facet arthropathy and thickening of ligamentum flavum. Mild central canal stenosis. Mild bilateral neural foraminal stenosis. L3-L4: Disc desiccation and mild diffuse disc bulge. Facet arthropathy and thickening of ligamentum flavum. Epidural lipomatosis. Mild central canal stenosis. Mild bilateral neural foraminal stenosis. L4-L5: Disc desiccation height loss. Diffuse disc bulge with superimposed right subarticular disc protrusion. Facet arthropathy and thickening of ligamentum flavum. Epidural lipomatosis. Moderate to severe central canal stenosis. Severe narrowing of the right lateral recess with likely impingement of the descending right L5 nerve root. Severe right and no left neural foraminal stenosis. L5-S1: Facet arthropathy. No central canal or neural foraminal stenosis. IMPRESSION: 1. Multilevel degenerative changes of the lumbar spine as described above, most pronounced at L4-5. 2. Moderate to severe central canal stenosis at L4-5. Severe narrowing of the right lateral recess with likely impingement of the descending right L5 nerve root. 3. Severe right neural foraminal stenosis at L4-5. Dictated by: Chong Yi M.D. on 12/16/2023 at 9:22 Approved by: Chong Yi M.D. on 12/16/2023 at 9:32
== END ==
PROVIDERS: PCP Family Medicine; Referring Provider Physical Medicine & Rehabilitation; Visit Provider Physical Medicine & Rehabilitation
DX: M47.816 Spondylosis without myelopathy or radiculopathy, lumbar region (principal); M47.817 Spondylosis without myelopathy or radiculopathy, lumbosacral region; M48.061 Spinal stenosis, lumbar region without neurogenic claudication
CPT/HCPCS: 72148

== ENCOUNTER → 2024-01-28 13:42 | Outpatient (CLI) | payer MEDICARE, SELFPAY ==
--- NOTE | 2024-01-28 13:43 | DI.CT.S_ITS ---
PROCEDURE: CT LUNG LOW DOSE SCREENING INDICATIONS: Nicotine dependence, unspecified, in remission TECHNIQUE: Noncontrast 2.0-2.5 mm thick sections acquired from the pulmonary apices to the posterior costophrenic angles. 7 mm thick axial MIP, and 5 mm coronal and sagittal reformats were then acquired. For radiation dose reduction, the following was used: automated exposure control, adjustment of mA and/or kV according to patient size. COMPARISON: [facility], CT, THORAX WITHOUT CONTRAST, 07/17/2013, 10:06. [facility], CT, CT ABDOMEN PELVIS W CON, 09/16/2020, 10:24. FINDINGS: Image quality: Diagnostic. Lower Neck: No enlarged lymph nodes. Thyroid: No thyroid nodules which require sonographic follow up, per consensus guidelines. Axillae: No enlarged lymph nodes. Chest Wall: Unremarkable. Bones: Unremarkable. Lungs and Pleura: No pneumothorax or pleural effusions. There is a 1.5 x 1.1 cm superior segment right lower lobe pulmonary nodule abutting the pleura which was not present in 2013. It is suspicious for bronchogenic carcinoma or a metastatic lesion. Reference current axial image 150 of series 3. It is protected by a rib. There is moderately severe centrilobular emphysema with changes more prevalent in the right lung than in the left lung. Heart: Heart size is normal. No pericardial effusion. Thoracic Vessels: The aorta and pulmonary arteries demonstrate normal size. There is chronic mild ascending aortic plaque. It was present in 2013. Mediastinum and Mary: No enlarged lymph nodes. Esophagus: No wall thickening. No hiatal hernia. Upper Abdomen: Moderate diffuse hepatic steatosis. IMPRESSION: Findings are highly suspicious for a malignancy in the superior segment of the right lower lobe, maximum diameter 1.5 cm, either a primary bronchogenic carcinoma or metastatic lesion. There is moderately severe emphysematous change. LUNG-RADS 4 B; recommend CT-guided biopsy versus PET-CT. This may be difficult to biopsy secondary to its location relative to a rib. Therefore, PET-CT at this point may be the best next step. Clinically Significant Non-pulmonary Findings: None. Dictated by: Felix Machado M.D. on 01/28/2024 at 18:59 Approved by: Felix Machado M.D. on 01/28/2024 at 19:04
== END ==
LOC: CT 13:43
PROVIDERS: PCP Family Medicine; Referring Provider Family Medicine; Visit Provider Family Medicine
DX: R91.1 Solitary pulmonary nodule (principal); Z12.2 Encounter for screening for malignant neoplasm of respiratory organs; J43.2 Centrilobular emphysema; Z87.891 Personal history of nicotine dependence; K76.0 Fatty (change of) liver, not elsewhere classified; I70.0 Atherosclerosis of aorta
CPT/HCPCS: 71271

== ENCOUNTER → 2024-04-14 13:45 | Outpatient (CLI) | payer MEDICARE, SELFPAY ==
--- NOTE | 2024-04-14 13:46 | DI.CT.S_ITS ---
PROCEDURE: CT CHEST WO CON INDICATIONS: lung nodule, solitary TECHNIQUE: Noncontrast 2.0-2.5 mm thick sections acquired from the pulmonary apices to the posterior costophrenic angles. 7 mm thick axial MIP, and 5 mm coronal and sagittal reformats were then acquired. For radiation dose reduction, the following was used: automated exposure control, adjustment of mA and/or kV according to patient size. COMPARISON: [facility], CT, CT LUNG LOW DOSE SCREENING, 01/28/2024, 13:55. FINDINGS: Image quality: Diagnostic. Thyroid Gland: Within normal limits. Cardiac: Heart size within normal limits. No pericardial effusion. Mild three-vessel coronary artery disease. Aorta: Moderate aortoiliac atherosclerosis, including marrow plaque around the ascending thoracic aorta (2/50). No aneurysm. Pulmonary Artery: Main pulmonary artery diameter within normal limits. Lungs: Upper lobe-predominant moderate centrilobular emphysema. Interval enlargement of a 2.0 x 1.5 cm (1.2 x 0.9 cm on 01/28/2024) solid, spiculated nodule in the superior segment of the right lower lobe (3/47; 5/95). Pleura: No pneumothorax or pleural effusion. Airways: The trachea and mainstem bronchi are patent. Lymph Nodes: Interval enlargement of a 1.4 cm short axis (0.9 cm on 01/28/2024) right lower paratracheal node (2/42). Otherwise, no mediastinal, hilar, or axillary lymphadenopathy. Esophagus: Within normal limits. Bones: No acute osseous abnormality. No lytic or blastic lesion. Upper Abdomen: Hypoattenuation of the liver parenchyma. Soft tissue: Mild bilateral gynecomastia. IMPRESSION: Interval enlargement of 2.0 cm right lower lobe and a 1.4 cm right lower paratracheal node. LUNG-RADS 4X; PET-CT or biopsy recommended. Clinically Significant Non-pulmonary Findings: Hepatic steatosis. Dictated by: Jerry Harman M.D. on 04/14/2024 at 14:48 Approved by: Jerry Harman M.D. on 04/14/2024 at 15:02
== END ==
PROVIDERS: PCP Family Medicine
DX: R91.1 Solitary pulmonary nodule (principal); I25.10 Atherosclerotic heart disease of native coronary artery without angina pectoris; I70.0 Atherosclerosis of aorta; J43.2 Centrilobular emphysema; N62 Hypertrophy of breast; K76.0 Fatty (change of) liver, not elsewhere classified; R59.0 Localized enlarged lymph nodes
CPT/HCPCS: 71250

== ENCOUNTER → 2024-05-14 12:03 | Outpatient (CLI) | payer MEDICARE, SELFPAY | PROVIDERS: PCP Family Medicine; Referring Provider Internal Medicine Pulmonary Disease; Visit Provider Internal Medicine Pulmonary Disease | DX: C34.90 Malignant neoplasm of unspecified part of unspecified bronchus or lung (principal); J44.9 Chronic obstructive pulmonary disease, unspecified; Z87.891 Personal history of nicotine dependence; R94.2 Abnormal results of pulmonary function studies | CPT/HCPCS: 94010; 94729 ==

== ENCOUNTER → 2024-06-10 16:00 | Outpatient (CLI) | payer MEDICARE, SELFPAY ==
--- NOTE | 2024-06-10 16:01 | DI.MRI.S_ITS ---
PROCEDURE: MR HEAD/BRAIN WO/W CON INDICATIONS: MALIGNANT NEOPLASM RT LUNG TECHNIQUE: Noncontrast axial T1 spin echo, axial T2 fast spin echo, sagittal and axial FLAIR, coronal T2 fast spin echo, axial gradient echo, axial diffusion and ADC through the brain. After the administration of contrast, axial and coronal and sagittal T1 spin echo with fat saturation through the brain. COMPARISON: None. FINDINGS: Image quality: Excellent. CSF spaces: Basal cisterns are patent. No extra-axial fluid collections. Ventricles are normal in size and shape. Brain: No midline shift. No intracranial bleeds or masses. No abnormal intracranial enhancement. There is cerebral volume loss for age. There is periventricular white matter chronic small vessel ischemic change. The brainstem appears normal. Diffusion-weighted images demonstrate no acute infarct. No chronic ischemic insults. Normal intravascular flow voids are present. Skull and face: Calvarial marrow is normal in signal. Orbits appear normal. Note is made of bilateral lens replacements. Sinuses: Sinuses and mastoids appear clear. IMPRESSION: No masses or abnormal enhancement can be seen. Dictated by: Chalino Krishnamurthy M.D. on 06/11/2024 at 10:23 Approved by: Chalino Krishnamurthy M.D. on 06/11/2024 at 10:24
== END ==
PROVIDERS: PCP Family Medicine; Referring Provider Internal Medicine Pulmonary Disease; Visit Provider Internal Medicine Pulmonary Disease
DX: C34.91 Malignant neoplasm of unspecified part of right bronchus or lung
CPT/HCPCS: 70553; A9579

== ENCOUNTER 2024-09-21 15:05 | Inpatient (IN) | payer MEDICARE, SELFPAY ==
[2024-09-21] VITALS (68 sets, daily range): BP systolic 64–166; BP diastolic 41–116; PULSE 75–155; RESP 16–37; TEMP 36.2–40.5; O2SAT 83–99; BMI 22.8
--- NOTE | 2024-09-21 | DI.RAD.S_ITS ---
PROCEDURE: XR ABDOMEN 1V INDICATIONS: CYSTO WITH STENT PLACEMENT TECHNIQUE: Single AP intra-operative images acquired by the Urology service. COMPARISON: None. FINDINGS: Single digital AP image from the OR show stent in the right upper collecting system with the pigtail overlies the superior calices. There is minimal contrast in the upper collecting system and proximal right ureter which appear grossly normal. IMPRESSION: Right ureteral stent as described Dictated by: Efren Rhoades M.D. on 09/22/2024 at 12:04 Approved by: Efren Rhoades M.D. on 09/22/2024 at 12:05
--- NOTE | 2024-09-21 15:34 | EKG_ITS ---
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
--- NOTE | 2024-09-21 15:34 | DI.RAD.S_ITS ---
PROCEDURE: XR CHEST 1V INDICATIONS: suspected sepsis TECHNIQUE: One view of the chest was acquired. COMPARISON: [facility], CR, XR CHEST 2V, 12/20/2022, 16:36. [facility], CR, XR CHEST 2V, 02/29/2020, 16:17. FINDINGS: Surgical changes and devices: Right chest wall port tip projects over the high SVC. Lungs and pleura: Lungs are clear. No pleural effusions or pneumothorax. Mediastinum: Mediastinal contours appear normal. Heart size is normal. Bones and chest wall: No suspicious bony lesions. Overlying soft tissues appear unremarkable. IMPRESSION: No acute cardiopulmonary abnormality is seen. Dictated by: Dinesh Muñoz M.D. on 09/21/2024 at 16:32 Approved by: Dinesh Muñoz M.D. on 09/21/2024 at 16:33
--- NOTE | 2024-09-21 15:40 | PC.NURSE ---
Changed pt out of urine saturated brief. No skin breakdown present. Provided estrella care prior to catheterization.
[2024-09-21] MEDS: SODIUM CHLORIDE 0.9% 1,000 ML 1000 ML IV (16:05)
[2024-09-21 16:08] LABS: Add Manual Diff / Slide Review NO; Basophils Absolute Auto 0 /uL (0-100); Basophils Percent Auto 0.4 % (0-2); Eosinophils Absolute Auto 0 /uL (0-450); Eosinophils Percent Auto 0.1 % (2-4); Hematocrit 29.2 % (41-53); Hemoglobin 9.7 g/dL (13.5-17.5); Lymphocytes Absolute Auto 300 /uL (1100-4500); Lymphocytes Percent Auto 2.9 % (25-40); Mean Corpuscular HGB Conc 33.2 % (30-36); Mean Corpuscular Hemoglobin 29.4 PG (26-34); Mean Corpuscular Volume 88.7 fL (80-100); Monocytes Absolute Auto 100 /uL (0-900); Monocytes Percent Auto 1.3 % (3-14); Neutrophils Absolute Auto 9700 /uL (1500-7000); Neutrophils Percent Auto 95.3 % (50-75); Platelet Count 153 X10^3/uL (150-400); Red Blood Cell Count 3.29 X10^6/uL (4.5-5.9); Red Cell Distribution Width 18.4 % (11.6-14.8); White Blood Cell Count 10.2 X10^3/uL (4.5-11.0)
[2024-09-21] MEDS: ACETAMINOPHEN IV 1,000 MG/100 ML VIAL 400 MG IV (16:15)
[2024-09-21 16:17] LABS: INR 1.4 (0.9-1.3); Prothrombin Time 15.7 SECONDS (9.4-12.5)
[2024-09-21 16:18] LABS: Appearance Urine UA CLEAR; Bilirubin Urine UA 1+ (NEGATIVE); Color Urine UA YELLOW; Glucose Urine UA 1+ g/dL (Negative); Ketones Urine UA TRACE (NEGATIVE); Leukocyte Esterase Urine UA NEGATIVE (NEGATIVE); Nitrite Urine UA POSITIVE (Negative); Occult Blood Urine UA NEGATIVE (Negative); Protein Urine UA 1+ (Negative); Specific Gravity Urine UA >=1.030 (1.000-1.035)
[2024-09-21 16:20] LABS: PTT Partial Thromboplastin Tim 32 SECONDS (25.1-36.5)
[2024-09-21 16:21] LABS: Alanine Aminotransferase 41 IU/L (<50); Albumin 3.6 g/dL (3.5-5.0); Albumin Globulin Ratio 1.1 (1.0-2.8); Alkaline Phosphatase 110 U/L (38-126); Aspartate Aminotransferase 51 IU/L (17-59); BUN Creatinine Ratio 17.3 (6-22); Bilirubin Total 1.4 mg/dL (0.2-1.3); Blood Urea Nitrogen 45 mg/dL (9-20); Calcium 9.7 mg/dL (8.4-10.2); Carbon Dioxide 23 mmol/L (22-32); Chloride 99 mmol/L (98-107); Estimated Glomerular Filt Rate 24 mL/min (>60); Globulin 3.4 g/dL (1.7-4.1); Glucose 256 mg/dL (80-110); HEMOLYSIS < 15 (0-50); Lactate (Lactic Acid) 6.2 mmol/L (0.7-2.1); Lipase 54 U/L (23-300); Potassium 5.3 mmol/L (3.4-5.1); Sodium 137 mmol/L (137-145)
[2024-09-21 16:23] LABS: Base Excess ABG 0.3 mmol/L (-2-3); Blood Gas Collection Site Left Brachial; Delivery System Cannula; HCO3 ABG 23 mmol/L (23-27); Oxygen Saturation ABG 93 % (95-100); PCO2 ABG 30.4 mmHg (35-45); PO2 ABG 61 mmHg (80-100); TCO2 ABG 22 mmol/L (23-27); pH ABG 7.49 (7.35-7.45)
[2024-09-21 16:28] LABS: Bacteria Urine Many (>30); RBC Urine None Seen (0-5/HPF); Squamous Epithelial Cell Urine 5-10 /HPF (0-5/HPF); Urine Volume 10mL (spun); WBC Urine 5-10/HPF (0-5/HPF)
[2024-09-21 16:29] LABS: Amorphous Sediment Urine 1+; Culture Indicated Urine Specimen Cultured; Hyaline Casts Urine 5-10/LPF
[2024-09-21 16:38] LABS: Procalcitonin 6.36 ng/mL (<0.5)
[2024-09-21 16:43] LABS: Ictotest Urine Negative (Negative)
--- NOTE | 2024-09-21 16:47 | ED_ITS ---
HPI - General Adult <Harish Farley MD - Last Filed: 09/21/24 21:45> General Chief complaint: Weakness Stated complaint: Weakness Time Seen by Provider: 09/21/24 15:37 Mode of arrival: EMS History of Present Illness HPI narrative: 79-year-old male with subjective fevers and generalized weakness about 2 weeks after last round chemotherapy. History of lung cancer diagnosed March 2024, placement of Port-A-Cath, 1st chemotherapy July 2024, followed by via medical oncology Dr Sylvain SING[facility], also followed by radiation oncology Dr. Mojica, had his last chemotherapy last week canceled, chemotherapy session the week before was his last chemotherapy session, with planned infusions of IV fluid and magnesium over the next 2-4 weeks, then likely immunotherapy infusions to follow up. Last chemotherapy 2 weeks ago, feeling feverish today, generalized weakness. No recent antibiotic exposure. Ongoing incontinence of urine and sometimes stool, no change in urinary or stool pattern. No known black or red stools. No recent emesis. Decreased appetite. Social history: Lives in [place] with Related Data Home Medications Medication Instructions Recorded Confirmed diclofenac 75 mg-misoprostol 200 1 tab PO QDAY ##0 01/19/11 09/21/24 mcg tablet,immediate,delayed release (Arthrotec) telmisartan 80 1 tab PO QDAY ##0 01/19/11 09/21/24 mg-hydrochlorothiazide 25 mg tablet (Micardis HCT) folic acid 400 mcg tablet 0.4 mg PO DAILY 09/21/24 09/21/24 metformin 500 mg tablet 500 mg PO 3XD 09/21/24 09/21/24 pregabalin 150 mg capsule 150 mg PO BID 09/21/24 09/21/24 tamsulosin 0.4 mg capsule 0.8 mg PO DAILY 09/21/24 09/21/24 Allergies Allergy/AdvReac Type Severity Reaction Status Date / Time No Known Drug Allergies Allergy Verified 09/16/20 09:31 Patient History <Harish Farley MD - Last Filed: 09/21/24 21:45> Social History Smoking Status: Never smoker Smoking Status: Never smoker alcohol intake frequency: 0-2 drinks per day Exam <Harish Farley MD - Last Filed: 09/21/24 21:45> Narrative Exam Narrative: GENERAL: Well-developed patient, in mild distress. HEAD: Atraumatic. Normocephalic. EYES: Pupils equal round and reactive. Extraocular motions intact. No scleral icterus. No injection or drainage. ENT: Nose without bleeding, purulent drainage. Throat without erythema, tonsillar hypertrophy or exudate. Airway patent. NECK: Trachea midline. Non tender CARDIOVASCULAR: Fast regular rhythm without murmurs, gallops, or rubs. RESPIRATORY: Breath sounds equal bilaterally. No wheezes, rales, or rhonchi. GASTROINTESTINAL: Abdomen soft, non-tender, nondistended. EXTREMITIES: No edema or joint tenderness. BACK: Nontender without deformity or crepitance. No flank tenderness. NEURO: AOx3. Motor functions grossly nonfocal SKIN: No rash or erythema of visible areas Initial Vital Signs Initial Vital Signs: Vital Signs Pulse Rate 140 H 09/21/24 15:17 Respiratory Rate 30 H 09/21/24 15:17 Pulse Oximetry 92 09/21/24 15:17 Oxygen Delivery Method Nasal Cannula 09/21/24 15:17 Oxygen Flow Rate 1 09/21/24 15:17 <Vivien Abad DO - Last Filed: 09/22/24 00:28> Initial Vital Signs Initial Vital Signs: Vital Signs Pulse Rate 140 H 09/21/24 15:17 Respiratory Rate 30 H 09/21/24 15:17 Pulse Oximetry 92 09/21/24 15:17 Oxygen Delivery Method Nasal Cannula 09/21/24 15:17 Oxygen Flow Rate 1 09/21/24 15:17 Course <Harish Farley MD - Last Filed: 09/21/24 21:45> Orders Ordered: ED Orders 09/21/24 15:34 XR chest 1V Stat EKG-12 Lead Stat 09/21/24 15:45 Ictotest Urine Stat Urinalysis and Microscopic Stat Urine Culture Stat 09/21/24 16:00 Complete Blood Count AUTO DIFF Stat Comprehensive Metabolic Panel Stat Creatine Kinase Stat Lactate (Lactic Acid) Stat Lipase Stat PTT Partial Thromboplastin [place] Stat Procalcitonin Stat Prothrombin Time INR Stat 09/21/24 16:05 Blood Culture Stat 09/21/24 16:25 Covid-19 + FLU A/B + RSV - PCR Stat 09/21/24 17:48 CT abdomen pelvis wo con Stat 09/21/24 17:52 BMP [Basic Metabolic Panel] Stat Hydromorphone HCl (Hydromorphone 0.5 Mg Inj) 0.5 mg IV Q2H PRN PRN Reason: Pain, Severe (7-10) Cefepime HCl 2 gm/ Sodium (Chloride) 100 mls @ 200 mls/hr IV Q12H [facility] Sodium Chloride (Normal Saline 0.9%) 1,000 mls @ 100 mls/hr IV CONT DANA Last Admin: 09/21/24 22:24 Dose: 100 mls/hr Documented By: KLARISSA Vancomycin HCl 1,000 mg/ (Sodium Chloride) 250 mls @ 125 mls/hr IV Q24H [facility] Naloxone HCl (Naloxone 0.4 Mg/Ml Vial) 0.2 mg IV Q2MIN PRN PRN Reason: Opiate Reversal Pantoprazole Sodium (Pantoprazole 40 Mg Vial) 40 mg IV DAILY [facility] Vancomycin HCl (Vancomycin Per Pharmacy) 1 request MISC NOW PRN PRN Reason: sepsis Discontinued Medications Albuterol/Ipratropium (Albuterol/Ipratropium 3 Ml Ampul) 3 ml INH NOW ONE Stop: 09/21/24 21:28 Last Admin: 09/21/24 21:10 Dose: 3 ml Documented By: KORINA Sodium Chloride (Normal Saline 0.9%) 1,000 mls @ 1,000 mls/hr IV BOLUS ONE Stop: 09/21/24 16:33 Last Infusion: 09/21/24 17:20 Dose: Infused Documented By: Admin: 09/21/24 16:05 Dose: 1,000 mls/hr Documented By: MIGNON Acetaminophen (Ofirmev) 1,000 mg in 100 mls @ 400 mls/hr IV NOW ONE Stop: 09/21/24 16:29 Last Infusion: 09/21/24 16:32 Dose: Infused Documented By: Admin: 09/21/24 16:15 Dose: 400 mls/hr Documented By: MIGNON Vancomycin HCl 2,000 mg/ (Sodium Chloride) 500 mls @ 250 mls/hr IV NOW ONE Stop: 09/21/24 16:43 Last Infusion: 09/21/24 19:32 Dose: Infused Documented By: Admin: 09/21/24 17:25 Dose: 250 mls/hr Documented By: MIGNON Cefepime HCl 2 gm/ Sodium (Chloride) 100 mls @ 200 mls/hr IV NOW ONE Stop: 09/21/24 16:43 Last Infusion: 09/21/24 17:25 Dose: Infused Documented By: Admin: 09/21/24 16:53 Dose: 200 mls/hr Documented By: MIGNON Lactated Ringer's (Lactated Ringers) 1,000 mls @ 1,000 mls/hr IV BOLUS ONE Stop: 09/21/24 17:42 Last Infusion: 09/21/24 21:26 Dose: Infused Documented By: Admin: 09/21/24 21:25 Dose: 1,000 mls/hr Documented By: Admin: 09/21/24 17:06 Dose: Not Given Documented By: MIGNON NOREPINEPHRINE BITARTRATE/D5W (Levophed) 4 mg in 250 mls @ 30.277 mls/hr IV TITRATE DANA; Protocol Last Titration: 09/22/24 00:19 Dose: 0.15 mcg/kg/min, 45.416 mls/hr Documented By: Admin: 09/21/24 23:57 Dose: 0.19 mcg/kg/min, 57.527 mls/hr Documented By: Titration: 09/21/24 23:57 Dose: Infused Documented By: Titration: 09/21/24 22:46 Dose: 0.22 mcg/kg/min, 66.61 mls/hr Documented By: Admin: 09/21/24 22:32 Dose: 0.24 mcg/kg/min, 72.665 mls/hr Documented By: Titration: 09/21/24 22:15 Dose: Infused Documented By: Titration: 09/21/24 22:01 Dose: Infused Documented By: Titration: 09/21/24 19:59 Dose: 0.3 mcg/kg/min, 90.831 mls/hr Documented By: Titration: 09/21/24 19:57 Dose: 0.25 mcg/kg/min, 75.693 mls/hr Documented By: Titration: 09/21/24 18:51 Dose: 0.2 mcg/kg/min, 60.554 mls/hr Documented By: Titration: 09/21/24 17:12 Dose: 0.15 mcg/kg/min, 45.416 mls/hr Documented By: Admin: 09/21/24 16:55 Dose: 0.1 mcg/kg/min, 30.277 mls/hr Documented By: MIGNON Sodium Chloride (Normal Saline 0.9%) 2,422.17 mls @ 807.39 mls/hr 30 ml/kg infuse over 3 hr (2422.17 ml) IV NOW ONE Stop: 09/21/24 20:14 Last Infusion: 09/21/24 19:56 Dose: Infused Documented By: Admin: 09/21/24 17:21 Dose: 807.39 mls/hr Documented By: MIGNON Lactated Ringer's (Lactated Ringers) 1,000 mls @ 42 mls/hr IV CONT DANA Last Admin: 09/21/24 21:26 Dose: 42 mls/hr Documented By: KORINA Iopamidol (Iopamidol 30 Ml Vial) 30 ml INJ NOW ONE Stop: 09/21/24 20:37 Last Admin: 09/21/24 20:37 Dose: 15 ml Documented By: HETAL Ondansetron HCl (Ondansetron 4 Mg/2 Ml Inj) 4 mg IV NOW PRN PRN Reason: Nausea And Vomiting Ondansetron HCl (Ondansetron 4 Mg Odt) 4 mg SL NOW PRN PRN Reason: Nausea And Vomiting Vital Signs Vital signs: Vital Signs - 8 hr 09/21/24 16:30 09/21/24 16:39 09/21/24 16:39 Temperature 104.0 F H 104.5 F H Pulse Rate 138 H 135 H Respiratory Rate 30 H 29 H Blood Pressure 81/51 L Pulse Oximetry Oxygen Delivery Method Oximask Oxygen Flow Rate 5 09/21/24 16:40 09/21/24 16:40 09/21/24 16:41 Temperature 104.7 F H Pulse Rate 133 H Respiratory Rate 31 H Blood Pressure 81/51 L 79/46 L Pulse Oximetry Oxygen Delivery Method Oxygen Flow Rate 09/21/24 16:41 09/21/24 16:41 09/21/24 16:46 Temperature 104.7 F H 104.9 F H Pulse Rate 133 H 133 H Respiratory Rate 29 H 31 H Blood Pressure 79/46 L Pulse Oximetry 83 L Oxygen Delivery Method Oxygen Flow Rate 09/21/24 16:46 09/21/24 16:47 09/21/24 16:47 Temperature 104.9 F H Pulse Rate 133 H Respiratory Rate 27 H Blood Pressure 85/52 L 92/51 L Pulse Oximetry Oxygen Delivery Method Oxygen Flow Rate 09/21/24 16:55 09/21/24 16:55 09/21/24 17:00 Temperature 104.9 F H 104.9 F H Pulse Rate 129 H 130 H Respiratory Rate 26 H 28 H Blood Pressure 88/54 L Pulse Oximetry 99 98 Oxygen Delivery Method Oximask Oximask Oxygen Flow Rate 5 5 09/21/24 17:01 09/21/24 17:01 09/21/24 17:05 Temperature 104.9 F H 104.7 F H Pulse Rate 132 H 134 H Respiratory Rate 32 H 35 H Blood Pressure 104/42 L Pulse Oximetry 88 L 97 Oxygen Delivery Method Oximask Oximask Oxygen Flow Rate 5 09/21/24 17:05 09/21/24 17:10 09/21/24 17:10 Temperature 104.5 F H Pulse Rate 132 H Respiratory Rate 33 H Blood Pressure 95/50 L 94/52 L Pulse Oximetry 97 Oxygen Delivery Method Oxygen Flow Rate 09/21/24 17:15 09/21/24 17:15 09/21/24 17:20 Temperature 104.4 F H 104.2 F H Pulse Rate 132 H 131 H Respiratory Rate 29 H Blood Pressure 88/53 L Pulse Oximetry 96 96 Oxygen Delivery Method Oximask Oximask Oxygen Flow Rate 09/21/24 17:20 09/21/24 17:25 09/21/24 17:25 Temperature 103.8 F H Pulse Rate 133 H Respiratory Rate Blood Pressure 102/57 L 106/58 L Pulse Oximetry 97 Oxygen Delivery Method Oxygen Flow Rate 09/21/24 17:30 09/21/24 17:30 09/21/24 17:35 Temperature 103.6 F H 103.6 F H Pulse Rate 130 H 129 H Respiratory Rate 30 H 30 H Blood Pressure 106/57 L Pulse Oximetry 98 98 Oxygen Delivery Method Oximask Oxygen Flow Rate 5 09/21/24 17:35 09/21/24 17:40 09/21/24 17:40 Temperature 103.5 F H Pulse Rate 129 H Respiratory Rate 34 H Blood Pressure 105/58 L 110/56 L Pulse Oximetry 99 Oxygen Delivery Method Oxygen Flow Rate 09/21/24 17:45 09/21/24 17:45 09/21/24 17:50 Temperature 103.3 F H 103.1 F H Pulse Rate 126 H 126 H Respiratory Rate 30 H 22 Blood Pressure 108/57 L Pulse Oximetry 99 98 Oxygen Delivery Method Oximask Oxygen Flow Rate 5 09/21/24 17:50 09/21/24 17:54 09/21/24 17:54 Temperature 102.9 F H Pulse Rate 125 H Respiratory Rate 23 Blood Pressure 97/54 L 93/54 L Pulse Oximetry 98 Oxygen Delivery Method Oxygen Flow Rate 09/21/24 17:55 09/21/24 17:55 09/21/24 18:00 Temperature 102.9 F H 102.6 F H Pulse Rate 126 H 125 H Respiratory Rate 22 25 H Blood Pressure 97/53 L Pulse Oximetry 98 98 Oxygen Delivery Method Oximask Oxygen Flow Rate 5 09/21/24 18:00 09/21/24 18:05 09/21/24 18:05 Temperature 102.4 F H Pulse Rate 122 H Respiratory Rate 22 Blood Pressure 108/56 L 97/55 L Pulse Oximetry 99 Oxygen Delivery Method Oxygen Flow Rate 09/21/24 18:10 09/21/24 18:10 09/21/24 18:15 Temperature 102.2 F H 102.2 F H Pulse Rate 122 H 122 H Respiratory Rate 21 20 Blood Pressure 96/54 L Pulse Oximetry 98 97 Oxygen Delivery Method Oximask Oxygen Flow Rate 5 09/21/24 18:15 09/21/24 18:20 09/21/24 18:20 Temperature 102.0 F H Pulse Rate 121 H Respiratory Rate 20 Blood Pressure 99/54 L 98/54 L Pulse Oximetry 97 Oxygen Delivery Method Oximask Oxygen Flow Rate 5 09/21/24 18:25 09/21/24 18:25 09/21/24 18:30 Temperature 101.8 F H Pulse Rate 120 H Respiratory Rate 20 Blood Pressure 102/56 L 95/55 L Pulse Oximetry 97 Oxygen Delivery Method Oxygen Flow Rate 09/21/24 18:30 09/21/24 18:35 09/21/24 18:35 Temperature 101.8 F H 101.7 F H Pulse Rate 121 H 119 H Respiratory Rate 22 21 Blood Pressure 91/52 L Pulse Oximetry 97 97 Oxygen Delivery Method Oximask Oxygen Flow Rate 5 09/21/24 18:40 09/21/24 18:40 09/21/24 18:45 Temperature 101.5 F H 101.5 F H Pulse Rate 119 H 117 H Respiratory Rate 20 18 Blood Pressure 96/54 L Pulse Oximetry 97 97 Oxygen Delivery Method Oxygen Flow Rate 09/21/24 18:45 09/21/24 18:50 09/21/24 18:50 Temperature 101.3 F H Pulse Rate 117 H Respiratory Rate 20 Blood Pressure 95/55 L 95/53 L Pulse Oximetry 97 Oxygen Delivery Method Oxygen Flow Rate <Vivien Abad, - Last Filed: 09/22/24 00:28> Orders Ordered: ED Orders 09/21/24 15:34 XR chest 1V Stat EKG-12 Lead Stat 09/21/24 15:45 Ictotest Urine Stat Urinalysis and Microscopic Stat Urine Culture Stat 09/21/24 16:00 Complete Blood Count AUTO DIFF Stat Comprehensive Metabolic Panel Stat Creatine Kinase Stat Lactate (Lactic Acid) Stat Lipase Stat PTT Partial Thromboplastin [place] Stat Procalcitonin Stat Prothrombin Time INR Stat 09/21/24 16:05 Blood Culture Stat 09/21/24 16:25 Covid-19 + FLU A/B + RSV - PCR Stat 09/21/24 17:48 CT abdomen pelvis wo con Stat 09/21/24 17:52 BMP [Basic Metabolic Panel] Stat Hydromorphone HCl (Hydromorphone 0.5 Mg Inj) 0.5 mg IV Q2H PRN PRN Reason: Pain, Severe (7-10) Cefepime HCl 2 gm/ Sodium (Chloride) 100 mls @ 200 mls/hr IV Q12H [facility] Sodium Chloride (Normal Saline 0.9%) 1,000 mls @ 100 mls/hr IV CONT DANA Last Admin: 09/21/24 22:24 Dose: 100 mls/hr Documented By: Vancomycin HCl 1,000 mg/ (Sodium Chloride) 250 mls @ 125 mls/hr IV Q24H [facility] Naloxone HCl (Naloxone 0.4 Mg/Ml Vial) 0.2 mg IV Q2MIN PRN PRN Reason: Opiate Reversal Pantoprazole Sodium (Pantoprazole 40 Mg Vial) 40 mg IV DAILY [facility] Vancomycin HCl (Vancomycin Per Pharmacy) 1 request MISC NOW PRN PRN Reason: sepsis Discontinued Medications Albuterol/Ipratropium (Albuterol/Ipratropium 3 Ml Ampul) 3 ml INH NOW ONE Stop: 03/17/25 21:28 Last Admin: 09/21/24 21:10 Dose: 3 ml Documented By: KORINA Sodium Chloride (Normal Saline 0.9%) 1,000 mls @ 1,000 mls/hr IV BOLUS ONE Stop: 09/21/24 16:33 Last Infusion: 09/21/24 17:20 Dose: Infused Documented By: Admin: 09/21/24 16:05 Dose: 1,000 mls/hr Documented By: MIGNON Acetaminophen (Ofirmev) 1,000 mg in 100 mls @ 400 mls/hr IV NOW ONE Stop: 09/21/24 16:29 Last Infusion: 09/21/24 16:32 Dose: Infused Documented By: Admin: 09/21/24 16:15 Dose: 400 mls/hr Documented By: MIGNON Vancomycin HCl 2,000 mg/ (Sodium Chloride) 500 mls @ 250 mls/hr IV NOW ONE Stop: 09/21/24 16:43 Last Infusion: 09/21/24 19:32 Dose: Infused Documented By: Admin: 09/21/24 17:25 Dose: 250 mls/hr Documented By: MIGNON Cefepime HCl 2 gm/ Sodium (Chloride) 100 mls @ 200 mls/hr IV NOW ONE Stop: 09/21/24 16:43 Last Infusion: 09/21/24 17:25 Dose: Infused Documented By: Admin: 09/21/24 16:53 Dose: 200 mls/hr Documented By: MIGNON Lactated Ringer's (Lactated Ringers) 1,000 mls @ 1,000 mls/hr IV BOLUS ONE Stop: 09/21/24 17:42 Last Infusion: 09/21/24 21:26 Dose: Infused Documented By: Admin: 09/21/24 21:25 Dose: 1,000 mls/hr Documented By: Admin: 09/21/24 17:06 Dose: Not Given Documented By: MIGNON NOREPINEPHRINE BITARTRATE/D5W (Levophed) 4 mg in 250 mls @ 30.277 mls/hr IV TITRATE DANA; Protocol Last Titration: 09/22/24 00:19 Dose: 0.15 mcg/kg/min, 45.416 mls/hr Documented By: Admin: 09/21/24 23:57 Dose: 0.19 mcg/kg/min, 57.527 mls/hr Documented By: Titration: 09/21/24 23:57 Dose: Infused Documented By: Titration: 09/21/24 22:46 Dose: 0.22 mcg/kg/min, 66.61 mls/hr Documented By: Admin: 09/21/24 22:32 Dose: 0.24 mcg/kg/min, 72.665 mls/hr Documented By: Titration: 09/21/24 22:15 Dose: Infused Documented By: Titration: 09/21/24 22:01 Dose: Infused Documented By: Titration: 09/21/24 19:59 Dose: 0.3 mcg/kg/min, 90.831 mls/hr Documented By: Titration: 09/21/24 19:57 Dose: 0.25 mcg/kg/min, 75.693 mls/hr Documented By: Titration: 09/21/24 18:51 Dose: 0.2 mcg/kg/min, 60.554 mls/hr Documented By: Titration: 09/21/24 17:12 Dose: 0.15 mcg/kg/min, 45.416 mls/hr Documented By: Admin: 09/21/24 16:55 Dose: 0.1 mcg/kg/min, 30.277 mls/hr Documented By: MIGNON Sodium Chloride (Normal Saline 0.9%) 2,422.17 mls @ 807.39 mls/hr 30 ml/kg infuse over 3 hr (2422.17 ml) IV NOW ONE Stop: 09/21/24 20:14 Last Infusion: 09/21/24 19:56 Dose: Infused Documented By: Admin: 09/21/24 17:21 Dose: 807.39 mls/hr Documented By: MIGNON Lactated Ringer's (Lactated Ringers) 1,000 mls @ 42 mls/hr IV CONT DANA Last Admin: 09/21/24 21:26 Dose: 42 mls/hr Documented By: KORINA Iopamidol (Iopamidol 30 Ml Vial) 30 ml INJ NOW ONE Stop: 09/21/24 20:37 Last Admin: 09/21/24 20:37 Dose: 15 ml Documented By: HETAL Ondansetron HCl (Ondansetron 4 Mg/2 Ml Inj) 4 mg IV NOW PRN PRN Reason: Nausea And Vomiting Ondansetron HCl (Ondansetron 4 Mg Odt) 4 mg SL NOW PRN PRN Reason: Nausea And Vomiting Vital Signs Vital signs: Vital Signs - 8 hr 09/21/24 16:30 09/21/24 16:39 09/21/24 16:39 Temperature 104.0 F H 104.5 F H Pulse Rate 138 H 135 H Respiratory Rate 30 H 29 H Blood Pressure 81/51 L Pulse Oximetry Oxygen Delivery Method Oximask Oxygen Flow Rate 5 09/21/24 16:40 09/21/24 16:40 09/21/24 16:41 Temperature 104.7 F H Pulse Rate 133 H Respiratory Rate 31 H Blood Pressure 81/51 L 79/46 L Pulse Oximetry Oxygen Delivery Method Oxygen Flow Rate 09/21/24 16:41 09/21/24 16:41 09/21/24 16:46 Temperature 104.7 F H 104.9 F H Pulse Rate 133 H 133 H Respiratory Rate 29 H 31 H Blood Pressure 79/46 L Pulse Oximetry 83 L Oxygen Delivery Method Oxygen Flow Rate 09/21/24 16:46 09/21/24 16:47 09/21/24 16:47 Temperature 104.9 F H Pulse Rate 133 H Respiratory Rate 27 H Blood Pressure 85/52 L 92/51 L Pulse Oximetry Oxygen Delivery Method Oxygen Flow Rate 09/21/24 16:55 09/21/24 16:55 09/21/24 17:00 Temperature 104.9 F H 104.9 F H Pulse Rate 129 H 130 H Respiratory Rate 26 H 28 H Blood Pressure 88/54 L Pulse Oximetry 99 98 Oxygen Delivery Method Oximask Oximask Oxygen Flow Rate 5 5 09/21/24 17:01 09/21/24 17:01 09/21/24 17:05 Temperature 104.9 F H 104.7 F H Pulse Rate 132 H 134 H Respiratory Rate 32 H 35 H Blood Pressure 104/42 L Pulse Oximetry 88 L 97 Oxygen Delivery Method Oximask Oximask Oxygen Flow Rate 5 09/21/24 17:05 09/21/24 17:10 09/21/24 17:10 Temperature 104.5 F H Pulse Rate 132 H Respiratory Rate 33 H Blood Pressure 95/50 L 94/52 L Pulse Oximetry 97 Oxygen Delivery Method Oxygen Flow Rate 09/21/24 17:15 09/21/24 17:15 09/21/24 17:20 Temperature 104.4 F H 104.2 F H Pulse Rate 132 H 131 H Respiratory Rate 29 H Blood Pressure 88/53 L Pulse Oximetry 96 96 Oxygen Delivery Method Oximask Oximask Oxygen Flow Rate 09/21/24 17:20 09/21/24 17:25 09/21/24 17:25 Temperature 103.8 F H Pulse Rate 133 H Respiratory Rate Blood Pressure 102/57 L 106/58 L Pulse Oximetry 97 Oxygen Delivery Method Oxygen Flow Rate 09/21/24 17:30 09/21/24 17:30 09/21/24 17:35 Temperature 103.6 F H 103.6 F H Pulse Rate 130 H 129 H Respiratory Rate 30 H 30 H Blood Pressure 106/57 L Pulse Oximetry 98 98 Oxygen Delivery Method Oximask Oxygen Flow Rate 5 09/21/24 17:35 09/21/24 17:40 09/21/24 17:40 Temperature 103.5 F H Pulse Rate 129 H Respiratory Rate 34 H Blood Pressure 105/58 L 110/56 L Pulse Oximetry 99 Oxygen Delivery Method Oxygen Flow Rate 09/21/24 17:45 09/21/24 17:45 09/21/24 17:50 Temperature 103.3 F H 103.1 F H Pulse Rate 126 H 126 H Respiratory Rate 30 H 22 Blood Pressure 108/57 L Pulse Oximetry 99 98 Oxygen Delivery Method Oximask Oxygen Flow Rate 09/21/24 17:50 09/21/24 17:54 09/21/24 17:54 Temperature 102.9 F H Pulse Rate 125 H Respiratory Rate 23 Blood Pressure 97/54 L 93/54 L Pulse Oximetry 98 Oxygen Delivery Method Oxygen Flow Rate 09/21/24 17:55 09/21/24 17:55 09/21/24 18:00 Temperature 102.9 F H 102.6 F H Pulse Rate 126 H 125 H Respiratory Rate 22 25 H Blood Pressure 97/53 L Pulse Oximetry 98 98 Oxygen Delivery Method Oximask Oxygen Flow Rate 5 09/21/24 18:00 09/21/24 18:05 09/21/24 18:05 Temperature 102.4 F H Pulse Rate 122 H Respiratory Rate 22 Blood Pressure 108/56 L 97/55 L Pulse Oximetry 99 Oxygen Delivery Method Oxygen Flow Rate 09/21/24 18:10 09/21/24 18:10 09/21/24 18:15 Temperature 102.2 F H 102.2 F H Pulse Rate 122 H 122 H Respiratory Rate 21 20 Blood Pressure 96/54 L Pulse Oximetry 98 97 Oxygen Delivery Method Oximask Oxygen Flow Rate 5 09/21/24 18:15 09/21/24 18:20 09/21/24 18:20 Temperature 102.0 F H Pulse Rate 121 H Respiratory Rate 20 Blood Pressure 99/54 L 98/54 L Pulse Oximetry 97 Oxygen Delivery Method Oximask Oxygen Flow Rate 5 09/21/24 18:25 09/21/24 18:25 09/21/24 18:30 Temperature 101.8 F H Pulse Rate 120 H Respiratory Rate 20 Blood Pressure 102/56 L 95/55 L Pulse Oximetry 97 Oxygen Delivery Method Oxygen Flow Rate 09/21/24 18:30 09/21/24 18:35 09/21/24 18:35 Temperature 101.8 F H 101.7 F H Pulse Rate 121 H 119 H Respiratory Rate 22 21 Blood Pressure 91/52 L Pulse Oximetry 97 97 Oxygen Delivery Method Oximask Oxygen Flow Rate 5 09/21/24 18:40 09/21/24 18:40 09/21/24 18:45 Temperature 101.5 F H 101.5 F H Pulse Rate 119 H 117 H Respiratory Rate 20 18 Blood Pressure 96/54 L Pulse Oximetry 97 97 Oxygen Delivery Method Oxygen Flow Rate 09/21/24 18:45 09/21/24 18:50 09/21/24 18:50 Temperature 101.3 F H Pulse Rate 117 H Respiratory Rate 20 Blood Pressure 95/55 L 95/53 L Pulse Oximetry 97 Oxygen Delivery Method Oxygen Flow Rate Medical Decision Making <Harish Farley MD - Last Filed: 09/21/24 21:45> Lab Data Lab results reviewed: Yes I reviewed the patient's lab results. Lab results narrative: White blood cell count 04346, hemoglobin 9.7, platelets 153,000. Glucose 256. BUN 45 with creatinine 2.6 noted. Potassium 5.3 slight elevation. Sodium 137, serum chloride 99, serum CO2 23. Total bilirubin 1.4, other liver functions unremarkable. Lipase normal. Lactate and procalcitonin elevated. Blood cultures sent. Urinalysis suspicious for infection, urine culture ordered per protocol. 09/21/24 16:00 09/21/24 17:52 Labs: Lab Results 09/21/24 09/21/24 09/21/24 Range/Units 15:45 16:00 16:17 WBC 10.2 (4.5-11.0) X10^3/uL RBC 3.29 L (4.5-5.9) X10^6/uL Hgb 9.7 L (13.5-17.5) g/dL Hct 29.2 L (41-53) % MCV 88.7 (80-100) fL MCH 29.4 (26-34) PG MCHC 33.2 (30-36) % RDW 18.4 H (11.6-14.8) % Plt Count 153 (150-400) X10^3/uL Neut % (Auto) 95.3 H (50-75) % Lymph % (Auto) 2.9 L (25-40) % [place] % (Auto) 1.3 L (3-14) % Eos % (Auto) 0.1 L (2-4) % Baso % (Auto) 0.4 (0-2) % Neut # (Auto) 9700 H (5373-3268) /uL Lymph # (Auto) 300 L (4020-5114) /uL [place] # (Auto) 100 (0-900) /uL Eos # (Auto) 0 (0-450) /uL Baso # (Auto) 0 (0-100) /uL PT 15.7 H (9.4-12.5) SECONDS INR 1.4 H (0.9-1.3) APTT 32 (25.1-36.5) SECONDS ABG Sample Site Left brachial ABG pH 7.49 H (7.35-7.45) ABG pCO2 30.4 L (35-45) mmHg ABG pO2 61 L (80-100) mmHg ABG HCO3 23 (23-27) mmol/L ABG Total CO2 22 L (23-27) mmol/L ABG O2 Saturation 93 L (95-100) % ABG Base Excess 0.3 (-2-3) mmol/L Niall Test N/a O2 Delivery Device Cannula FiO2 % 28.0 % % Sodium 137 (137-145) mmol/L Potassium 5.3 H (3.4-5.1) mmol/L Chloride 99 (98-107) mmol/L Carbon Dioxide 23 (22-32) mmol/L BUN 45 H (9-20) mg/dL Creatinine 2.60 H (0.66-1.25) mg/dL Estimated GFR 24 L (>60) mL/min BUN/Creatinine Ratio 17.3 (6-22) Glucose 256 H (80-110) mg/dL Lactate 6.2 H* (0.7-2.1) mmol/L Calcium 9.7 (8.4-10.2) mg/dL Total Bilirubin 1.4 H (0.2-1.3) mg/dL AST 51 (17-59) IU/L ALT 41 (<50) IU/L Alkaline Phosphatase 110 (38-126) U/L Total Creatine Kinase 152 (55-170) U/L Total Protein 7.0 (6.3-8.2) g/dL Albumin 3.6 (3.5-5.0) g/dL Globulin 3.4 (1.7-4.1) g/dL Albumin/Globulin Ratio 1.1 (1.0-2.8) Lipase 54 (23-300) U/L Procalcitonin 6.36 H (<0.5) ng/mL Urine Color Yellow Urine Appearance Clear Urine pH 5.0 (4.5-8.0) Ur Specific [place] >=1.030 H (1.000-1.035) Urine Protein 1+ H (Negative) Urine Glucose (UA) 1+ H (Negative) g/dL Urine Ketones Trace H (NEGATIVE) Urine Occult Blood Negative (Negative) Urine Nitrate Positive H (Negative) Urine Bilirubin 1+ H (NEGATIVE) Ur Bilirubin Confirm Negative (Negative) Urine Urobilinogen 1.0 (0.2) E.U./dL Ur Leukocyte Esterase Negative (NEGATIVE) Urine RBC None seen (0-5/HPF) Urine WBC 5-10/hpf H (0-5/HPF) Ur Squamous Epith Cells 5-10 /hpf H (0-5/HPF) Amorphous Sediment 1+ Urine Bacteria Many (>30) H (None) Hyaline Casts 5-10/lpf (None) Ur Culture Indicated? Specimen cultured Vol Urine Centrifuged 10ml (spun) SARS-CoV-2 (PCR) (Negative) Influenza A (RT-PCR) (NEGATIVE) Influenza B (RT-PCR) (NEGATIVE) RSV (PCR) (Negative) 09/21/24 09/21/24 Range/Units 16:25 17:52 WBC (4.5-11.0) X10^3/uL RBC (4.5-5.9) X10^6/uL Hgb (13.5-17.5) g/dL Hct (41-53) % MCV (80-100) fL MCH (26-34) PG MCHC (30-36) % RDW (11.6-14.8) % Plt Count (150-400) X10^3/uL Neut % (Auto) (50-75) % Lymph % (Auto) (25-40) % [place] % (Auto) (3-14) % Eos % (Auto) (2-4) % Baso % (Auto) (0-2) % Neut # (Auto) (2006-3392) /uL Lymph # (Auto) (9475-9151) /uL [place] # (Auto) (0-900) /uL Eos # (Auto) (0-450) /uL Baso # (Auto) (0-100) /uL PT (9.4-12.5) SECONDS INR (0.9-1.3) APTT (25.1-36.5) SECONDS ABG Sample Site ABG pH (7.35-7.45) ABG pCO2 (35-45) mmHg ABG pO2 (80-100) mmHg ABG HCO3 (23-27) mmol/L ABG Total CO2 (23-27) mmol/L ABG O2 Saturation (95-100) % ABG Base Excess (-2-3) mmol/L Niall Test O2 Delivery Device FiO2 % % Sodium 133 L (137-145) mmol/L Potassium 3.9 D (3.4-5.1) mmol/L Chloride 101 (98-107) mmol/L Carbon Dioxide 24 (22-32) mmol/L BUN 44 H (9-20) mg/dL Creatinine 2.13 H (0.66-1.25) mg/dL Estimated GFR 31 L (>60) mL/min BUN/Creatinine Ratio 20.7 (6-22) Glucose 249 H (80-110) mg/dL Lactate 2.4 H (0.7-2.1) mmol/L Calcium 7.8 L (8.4-10.2) mg/dL Total Bilirubin (0.2-1.3) mg/dL AST (17-59) IU/L ALT (<50) IU/L Alkaline Phosphatase (38-126) U/L Total Creatine Kinase (55-170) U/L Total Protein (6.3-8.2) g/dL Albumin (3.5-5.0) g/dL Globulin (1.7-4.1) g/dL Albumin/Globulin Ratio (1.0-2.8) Lipase (23-300) U/L Procalcitonin (<0.5) ng/mL Urine Color Urine Appearance Urine pH (4.5-8.0) Ur Specific [place] (1.000-1.035) Urine Protein (Negative) Urine Glucose (UA) (Negative) g/dL Urine Ketones (NEGATIVE) Urine Occult Blood (Negative) Urine Nitrate (Negative) Urine Bilirubin (NEGATIVE) Ur Bilirubin Confirm (Negative) Urine Urobilinogen (0.2) E.U./dL Ur Leukocyte Esterase (NEGATIVE) Urine RBC (0-5/HPF) Urine WBC (0-5/HPF) Ur Squamous Epith Cells (0-5/HPF) Amorphous Sediment Urine Bacteria (None) Hyaline Casts (None) Ur Culture Indicated? Vol Urine Centrifuged SARS-CoV-2 (PCR) Negative (Negative) Influenza A (RT-PCR) Flu a negative (NEGATIVE) Influenza B (RT-PCR) Flu b negative (NEGATIVE) RSV (PCR) Negative (Negative) ECG Data Attestation: I personally reviewed and interpreted this ECG as follows: Interpretation: Sinus tachycardia with rate of 127, no obvious ST segment elevation or depression changes. Occasional PVC. TN 134, QRS 88, QTC 412. [facility] Narrative Medical decision making narrative: 79-year-old male with history of lung cancer, right chest Port-A-Cath, finished chemotherapy 2 weeks ago, presented with fever and sinus tachycardia, initial heart rate 140. EKG shows narrow complex tachycardia consistent with sinus tachycardia. Troponin negative. Possible sepsis, low blood pressure, possible septic shock. Decreased oral intake, IV fluid bolus initiated, blood cultures. IV vancomycin and IV cefepime. Norepinephrine via right chest accessed portacath. BUN and creatinine elevated, hopefully will improve with IV fluids. Urinalysis suspicious for infection. Should be covered with IV cefepime. CT abdomen and pelvis noncontrast scan ordered. CT abdomen and pelvis scan was reviewed by Urology, who feels there is an obstructing stone in the right side, we will take patient for ureteral stent. To operating room for stenting per urology, on norepinephrine pressor support via Port-A-Cath. DR. Abad, signed out from Dr. Farley, Dr. Joiner taking to allow for septic ureteral stone. Dr. Fishman updated symptoms test results plan patient continues to be Levophed <Vivien Abad, DO - Last Filed: 09/22/24 00:28> Lab Data Labs: Lab Results 09/21/24 09/21/24 09/21/24 Range/Units 15:45 16:00 16:17 WBC 10.2 (4.5-11.0) X10^3/uL RBC 3.29 L (4.5-5.9) X10^6/uL Hgb 9.7 L (13.5-17.5) g/dL Hct 29.2 L (41-53) % MCV 88.7 (80-100) fL MCH 29.4 (26-34) PG MCHC 33.2 (30-36) % RDW 18.4 H (11.6-14.8) % Plt Count 153 (150-400) X10^3/uL Neut % (Auto) 95.3 H (50-75) % Lymph % (Auto) 2.9 L (25-40) % [place] % (Auto) 1.3 L (3-14) % Eos % (Auto) 0.1 L (2-4) % Baso % (Auto) 0.4 (0-2) % Neut # (Auto) 9700 H (1052-4946) /uL Lymph # (Auto) 300 L (8352-5205) /uL [place] # (Auto) 100 (0-900) /uL Eos # (Auto) 0 (0-450) /uL Baso # (Auto) 0 (0-100) /uL PT 15.7 H (9.4-12.5) SECONDS INR 1.4 H (0.9-1.3) APTT 32 (25.1-36.5) SECONDS ABG Sample Site Left brachial ABG pH 7.49 H (7.35-7.45) ABG pCO2 30.4 L (35-45) mmHg ABG pO2 61 L (80-100) mmHg ABG HCO3 23 (23-27) mmol/L ABG Total CO2 22 L (23-27) mmol/L ABG O2 Saturation 93 L (95-100) % ABG Base Excess 0.3 (-2-3) mmol/L Niall Test N/a O2 Delivery Device Cannula FiO2 % 28.0 % % Sodium 137 (137-145) mmol/L Potassium 5.3 H (3.4-5.1) mmol/L Chloride 99 (98-107) mmol/L Carbon Dioxide 23 (22-32) mmol/L BUN 45 H (9-20) mg/dL Creatinine 2.60 H (0.66-1.25) mg/dL Estimated GFR 24 L (>60) mL/min BUN/Creatinine Ratio 17.3 (6-22) Glucose 256 H (80-110) mg/dL Lactate 6.2 H* (0.7-2.1) mmol/L Calcium 9.7 (8.4-10.2) mg/dL Total Bilirubin 1.4 H (0.2-1.3) mg/dL AST 51 (17-59) IU/L ALT 41 (<50) IU/L Alkaline Phosphatase 110 (38-126) U/L Total Creatine Kinase 152 (55-170) U/L Total Protein 7.0 (6.3-8.2) g/dL Albumin 3.6 (3.5-5.0) g/dL Globulin 3.4 (1.7-4.1) g/dL Albumin/Globulin Ratio 1.1 (1.0-2.8) Lipase 54 (23-300) U/L Procalcitonin 6.36 H (<0.5) ng/mL Urine Color Yellow Urine Appearance Clear Urine pH 5.0 (4.5-8.0) Ur Specific [place] >=1.030 H (1.000-1.035) Urine Protein 1+ H (Negative) Urine Glucose (UA) 1+ H (Negative) g/dL Urine Ketones Trace H (NEGATIVE) Urine Occult Blood Negative (Negative) Urine Nitrate Positive H (Negative) Urine Bilirubin 1+ H (NEGATIVE) Ur Bilirubin Confirm Negative (Negative) Urine Urobilinogen 1.0 (0.2) E.U./dL Ur Leukocyte Esterase Negative (NEGATIVE) Urine RBC None seen (0-5/HPF) Urine WBC 5-10/hpf H (0-5/HPF) Ur Squamous Epith Cells 5-10 /hpf H (0-5/HPF) Amorphous Sediment 1+ Urine Bacteria Many (>30) H (None) Hyaline Casts 5-10/lpf (None) Ur Culture Indicated? Specimen cultured Vol Urine Centrifuged 10ml (spun) SARS-CoV-2 (PCR) (Negative) Influenza A (RT-PCR) (NEGATIVE) Influenza B (RT-PCR) (NEGATIVE) RSV (PCR) (Negative) 09/21/24 09/21/24 Range/Units 16:25 17:52 WBC (4.5-11.0) X10^3/uL RBC (4.5-5.9) X10^6/uL Hgb (13.5-17.5) g/dL Hct (41-53) % MCV (80-100) fL MCH (26-34) PG MCHC (30-36) % RDW (11.6-14.8) % Plt Count (150-400) X10^3/uL Neut % (Auto) (50-75) % Lymph % (Auto) (25-40) % [place] % (Auto) (3-14) % Eos % (Auto) (2-4) % Baso % (Auto) (0-2) % Neut # (Auto) (4251-0559) /uL Lymph # (Auto) (9960-7161) /uL [place] # (Auto) (0-900) /uL Eos # (Auto) (0-450) /uL Baso # (Auto) (0-100) /uL PT (9.4-12.5) SECONDS INR (0.9-1.3) APTT (25.1-36.5) SECONDS ABG Sample Site ABG pH (7.35-7.45) ABG pCO2 (35-45) mmHg ABG pO2 (80-100) mmHg ABG HCO3 (23-27) mmol/L ABG Total CO2 (23-27) mmol/L ABG O2 Saturation (95-100) % ABG Base Excess (-2-3) mmol/L Niall Test O2 Delivery Device FiO2 % % Sodium 133 L (137-145) mmol/L Potassium 3.9 D (3.4-5.1) mmol/L Chloride 101 (98-107) mmol/L Carbon Dioxide 24 (22-32) mmol/L BUN 44 H (9-20) mg/dL Creatinine 2.13 H (0.66-1.25) mg/dL Estimated GFR 31 L (>60) mL/min BUN/Creatinine Ratio 20.7 (6-22) Glucose 249 H (80-110) mg/dL Lactate 2.4 H (0.7-2.1) mmol/L Calcium 7.8 L (8.4-10.2) mg/dL Total Bilirubin (0.2-1.3) mg/dL AST (17-59) IU/L ALT (<50) IU/L Alkaline Phosphatase (38-126) U/L Total Creatine Kinase (55-170) U/L Total Protein (6.3-8.2) g/dL Albumin (3.5-5.0) g/dL Globulin (1.7-4.1) g/dL Albumin/Globulin Ratio (1.0-2.8) Lipase (23-300) U/L Procalcitonin (<0.5) ng/mL Urine Color Urine Appearance Urine pH (4.5-8.0) Ur Specific [place] (1.000-1.035) Urine Protein (Negative) Urine Glucose (UA) (Negative) g/dL Urine Ketones (NEGATIVE) Urine Occult Blood (Negative) Urine Nitrate (Negative) Urine Bilirubin (NEGATIVE) Ur Bilirubin Confirm (Negative) Urine Urobilinogen (0.2) E.U./dL Ur Leukocyte Esterase (NEGATIVE) Urine RBC (0-5/HPF) Urine WBC (0-5/HPF) Ur Squamous Epith Cells (0-5/HPF) Amorphous Sediment Urine Bacteria (None) Hyaline Casts (None) Ur Culture Indicated? Vol Urine Centrifuged SARS-CoV-2 (PCR) Negative (Negative) Influenza A (RT-PCR) Flu a negative (NEGATIVE) Influenza B (RT-PCR) Flu b negative (NEGATIVE) RSV (PCR) Negative (Negative) MDM Narrative Medical decision making narrative: 79-year-old male with history of lung cancer, right chest Port-A-Cath, finished chemotherapy 2 weeks ago, presented with fever and sinus tachycardia, initial heart rate 140. EKG shows narrow complex tachycardia consistent with sinus tachycardia. Troponin negative. Possible sepsis, low blood pressure, possible septic shock. Decreased oral intake, IV fluid bolus initiated, blood cultures. IV vancomycin and IV cefepime. BUN and creatinine elevated, hopefully will improve with IV fluids. Urinalysis suspicious for infection. Should be covered with IV cefepime. CT abdomen and pelvis noncontrast scan ordered. CT abdomen and pelvis scan was reviewed by Urology, who feels there is an obstructing stone in the right side, we will take patient for ureteral stone. To operating room for stenting per urology, on norepinephrine pressor support via Port-A-Cath. DR. Abad, signed out from Dr. Farley, Dr. Joiner taking to allow for septic ureteral stone. Dr. Fishman updated symptoms test results plan patient continues to be Levophed Critical Care Time <Vivien Abad, - Last Filed: 09/22/24 00:28> Critical Care Time Critical Care Time: Yes Total Critical Care Time: 40 Attestation: The high probability of a clinically significant, sudden or life threatening deterioration of the [cardiovascular] system(s) required my full and direct attention, intervention and personal management. The aggregate critical care time was 40 minutes. This time is in addition to time spent performing reported procedures but includes the following: [x] Data Review and interpretation [x] Patient assessment and monitoring of vital signs [x] Documentation [x] Medication orders and management Discharge Plan Departure Patient Disposition: Admitted As Inpatient Clinical Impression: Septic shock, CRISTOFER (acute kidney injury), Calculus, ureteral Urinary tract infection Qualifiers: Urinary tract infection type: site unspecified Hematuria presence: without hematuria Qualified Code(s): N39.0 - Urinary tract infection, site not specified Admit Date/Time: 09/21/24 18:50 Admit Provider: Riky Gilliam
--- NOTE | 2024-09-21 16:49 | RT ---
1621 - Dr. Farley notified regarding pt's ABG results.
[2024-09-21] MEDS: CEFEPIME 2 GM in SODIUM CHLORIDE 0.9% 100 ML IV (16:53)
[2024-09-21] MEDS: NOREPINEPHRINE BITARTRATE/D5W 4 MG/250 ML PLAST..BAG 30.277 MG IV (16:55)
[2024-09-21 17:06] LABS: Creatine Kinase 152 U/L (55-170)
[2024-09-21 17:18] LABS: Influenza A - CEPHEID Flu A NEGATIVE (NEGATIVE); Influenza B - CEPHEID Flu B NEGATIVE (NEGATIVE); Respiratory Syncytial Virus Negative (Negative)
[2024-09-21 17:19] LABS: COVID-19 CEPHEID 4-PLEX PCR Negative (Negative)
[2024-09-21] MEDS: SODIUM CHLORIDE 0.9% 2,422.17 ML 807.39 ML IV (17:21)
[2024-09-21] MEDS: VANCOMYCIN 2,000 MG in SODIUM CHLORIDE 0.9% 500 ML 250 MG IV (17:25)
[2024-09-21 17:41] LABS: Reflexed Lactate in 2 Hours Y
--- NOTE | 2024-09-21 17:48 | DI.CT.S_ITS ---
PROCEDURE: CT ABDOMEN PELVIS WO CON INDICATIONS: Urosepsis, recent chemotherapy, hypotension TECHNIQUE: Axial sections were acquired from the lung bases to the pubic symphysis. Coronal and sagittal reformats were performed. For radiation dose reduction, the following was used: automated exposure control, adjustment of mA and/or kV according to patient size. COMPARISON: [facility] [place], [place], [place] PET CT FUSION SKULL 2 THIGH, 05/06/2024, 14:45. FINDINGS: Image quality: Diagnostic. Lower Chest: Bibasilar gravitational changes. No acute alveolar opacities or pleural effusions. URINARY: Right Kidney: Three right intrarenal calculi. The largest in the upper pole measures 7 mm and demonstrates Hounsfield units of about 800. No significant hydronephrosis. Right Ureter: No hydroureter, ureteral calculus, or periureteric inflammation. Left Kidney: Several nonobstructing intrarenal calculi 5 mm and smaller. Partially exophytic left renal cysts. No significant hydronephrosis. Left Ureter: No hydroureter, ureteral calculus, or periureteric inflammation. Bladder: The urinary bladder is decompressed. Within the bladder wall just beyond the right UVJ, there is a 6 mm calcification. There is also a small thin-walled bladder diverticula arising just cranial to this. The urinary bladder is decompressed around a Cross catheter. ABDOMEN: Liver: No contour-deforming solid mass. Gallbladder: Surgically absent. Biliary ducts: Appropriate biliary tree caliber post cholecystectomy. Pancreas: Normal size and morphology without visible ductal dilatation or inflammation. Spleen: Mild splenomegaly. Adrenal Glands: No focal nodules. Stomach and Bowel: Stomach and small bowel loops are normal caliber. Normal quantity of colonic stool. No suspicious colon wall thickening or inflammation. Occasional sigmoid diverticulosis. Peritoneum: No abnormal intraperitoneal fluid. No free air. Ventral Wall: No hernia. Abdominal Nodes: No enlarged retroperitoneal or mesenteric lymph nodes. Vessels: The abdominal aorta, IVC, and portal vein are of normal caliber. Moderate abdominal aortic atherosclerotic calcification. PELVIS: Pelvic Organs: Moderate prostatomegaly. Pelvic Nodes: Unremarkable. Miscellaneous: No inguinal hernias are seen. Bones: Unremarkable. IMPRESSION: Several nonobstructing bilateral intrarenal calculi as described. Right-sided bladder wall calculus versus UVJ calculus without causing proximal obstruction. This may also have been recently passed. This was not previously present. Dictated by: Rosario Vee M.D. on 09/21/2024 at 18:26 Approved by: Rosario Vee M.D. on 09/21/2024 at 18:37
[2024-09-21 18:11] LABS: BUN Creatinine Ratio 20.7 (6-22); Blood Urea Nitrogen 44 mg/dL (9-20); Calcium 7.8 mg/dL (8.4-10.2); Carbon Dioxide 24 mmol/L (22-32); Chloride 101 mmol/L (98-107); Estimated Glomerular Filt Rate 31 mL/min (>60); Glucose 249 mg/dL (80-110); HEMOLYSIS < 15 (0-50); Lactate 2HR (Lactic Acid Rflx) 2.4 mmol/L (0.7-2.1); Potassium 3.9 mmol/L (3.4-5.1); Sodium 133 mmol/L (137-145)
--- NOTE | 2024-09-21 18:25 | PC.NURSE ---
Addendum entered by Fede Medley R.N. 09/21/24 18:40: Dr. Farley states goal MAP above 65. Original Note: PT responds to verbal stimulus. No longer has tremors. He denies pain and states his breathing feels better. PT occasionally awakes and attempts to tug at vitals cords. Frequent reorientation of patient to hospital. Spouse and neighbor remain at bedside with pt.
--- NOTE | 2024-09-21 18:57 | PC.NURSE ---
I called Fatoumata at the phone number provided in her chart and left her a voicemail to call us back regarding surgery. Dr. Maradiaga at bedside and explaining procedure to pt. Pt asking questions regarding recovery. Dr. Maradiaga answered questions and pt signed consent form for surgery.
--- NOTE | 2024-09-21 19:04 | P.CONS_ITS ---
History of Present Illness Consult details Date Patient Seen: 09/21/24 Time Patient Seen: 19:04 Chief complaint: Weakness Narrative: 79 y/o M w/ h/o nephrolithiasis presents to ER for evaluation of fevers at home and generalized weakness. Briefly,m he was diagnosed w/ lung cancer in late 2023 and currently has a port in place. He started chemotherapy in early Jul that has apparently now been completed. Over the last few weeks, he admits to feeling chills and fevers at home as well as overall weakness. His evaluation at ER is notable for a WBC of 10.2, sCr of 2.13, infected appearing UA and a NCCT Abd/Pel that notes a 6mm right UVJ calculus w/o upstream hydroureteronephrosis (of note, also has bilateral non-obstructive nephrolithiasis). His vitals were notable for a Tmax of 104.9F, tachycardic to the 150's and systolics as low as the 70's. Meds Home Medications and Allergies Home Medications Medication Instructions Recorded Confirmed Type diclofenac 75 mg-misoprostol 200 1 tab PO QDAY ##0 01/19/11 09/16/20 History mcg tablet,immediate,delayed release (Arthrotec) telmisartan 80 1 tab PO QDAY ##0 01/19/11 09/16/20 History mg-hydrochlorothiazide 25 mg tablet (Micardis HCT) amoxicillin 875 mg-potassium 1 tab PO BID #20 tabs 09/16/20 Rx clavulanate 125 mg tablet (Augmentin) metformin 500 mg tablet 500 mg PO BID 09/16/20 09/16/20 History Allergies Allergy/AdvReac Type Severity Reaction Status Date / Time No Known Drug Allergies Allergy Verified 09/16/20 09:31 Review of Systems Review of Systems Narrative: CONSTITUTIONAL: Denies weight loss, fevers, chills. HEENT: Denies change in vision, hearing. RESP: Denies SOB, cough. CV: Denies palpations, CP. GI: Denies abdominal pain, nausea, vomiting, diarrhea. : Denies dysuria, hematuria, inability to void. MSK: Denies myalgia, joint pain. SKIN: Denies rash, pruritus. NEURO: Denies headache, syncope. PSYCH: Denies recent change in mood, anxiety, depression. Exam Vital Signs (past 8 hours): - 09/21/24 15:17 09/21/24 15:22 09/21/24 15:22 Temperature Pulse Rate 140 H 141 H Respiratory Rate 30 H 30 H Blood Pressure 166/116 H Pulse Oximetry 92 Oxygen Delivery Method Nasal Cannula Oxygen Flow Rate 1 09/21/24 15:29 09/21/24 15:30 09/21/24 15:52 Temperature 98.8 F 100.2 F H Pulse Rate 144 H 144 H 155 H Respiratory Rate 22 37 H 36 H Blood Pressure 166/116 H Pulse Oximetry Oxygen Delivery Method Oxygen Flow Rate 09/21/24 15:52 09/21/24 16:00 09/21/24 16:01 Temperature 101.3 F H Pulse Rate 150 H Respiratory Rate 33 H Blood Pressure 148/97 H 155/67 H Pulse Oximetry Oxygen Delivery Method Oxygen Flow Rate 09/21/24 16:01 09/21/24 16:30 09/21/24 16:39 Temperature 101.5 F H 104.0 F H Pulse Rate 150 H 138 H Respiratory Rate 34 H 30 H Blood Pressure 81/51 L Pulse Oximetry 95 Oxygen Delivery Method Nasal Cannula Oximask Oxygen Flow Rate 2 5 09/21/24 16:39 09/21/24 16:40 09/21/24 16:40 Temperature 104.5 F H 104.7 F H Pulse Rate 135 H 133 H Respiratory Rate 29 H 31 H Blood Pressure 81/51 L Pulse Oximetry Oxygen Delivery Method Oxygen Flow Rate 09/21/24 16:41 09/21/24 16:41 09/21/24 16:41 Temperature 104.7 F H Pulse Rate 133 H Respiratory Rate 29 H Blood Pressure 79/46 L 79/46 L Pulse Oximetry 83 L Oxygen Delivery Method Oxygen Flow Rate 09/21/24 16:46 09/21/24 16:46 09/21/24 16:47 Temperature 104.9 F H 104.9 F H Pulse Rate 133 H 133 H Respiratory Rate 31 H 27 H Blood Pressure 85/52 L Pulse Oximetry Oxygen Delivery Method Oxygen Flow Rate 09/21/24 16:47 09/21/24 16:55 09/21/24 16:55 Temperature 104.9 F H Pulse Rate 129 H Respiratory Rate 26 H Blood Pressure 92/51 L 88/54 L Pulse Oximetry 99 Oxygen Delivery Method Oximask Oxygen Flow Rate 5 09/21/24 17:00 09/21/24 17:01 09/21/24 17:01 Temperature 104.9 F H 104.9 F H Pulse Rate 130 H 132 H Respiratory Rate 28 H 32 H Blood Pressure 104/42 L Pulse Oximetry 98 88 L Oxygen Delivery Method Oximask Oximask Oxygen Flow Rate 5 09/21/24 17:05 09/21/24 17:05 09/21/24 17:10 Temperature 104.7 F H 104.5 F H Pulse Rate 134 H 132 H Respiratory Rate 35 H 33 H Blood Pressure 95/50 L Pulse Oximetry 97 97 Oxygen Delivery Method Oximask Oxygen Flow Rate 5 09/21/24 17:10 09/21/24 17:15 09/21/24 17:15 Temperature 104.4 F H Pulse Rate 132 H Respiratory Rate Blood Pressure 94/52 L 88/53 L Pulse Oximetry 96 Oxygen Delivery Method Oximask Oxygen Flow Rate 09/21/24 17:20 09/21/24 17:20 09/21/24 17:25 Temperature 104.2 F H 103.8 F H Pulse Rate 131 H 133 H Respiratory Rate 29 H Blood Pressure 102/57 L Pulse Oximetry 96 97 Oxygen Delivery Method Oximask Oxygen Flow Rate 09/21/24 17:25 09/21/24 17:30 09/21/24 17:30 Temperature 103.6 F H Pulse Rate 130 H Respiratory Rate 30 H Blood Pressure 106/58 L 106/57 L Pulse Oximetry 98 Oxygen Delivery Method Oxygen Flow Rate 09/21/24 17:35 09/21/24 17:35 09/21/24 17:40 Temperature 103.6 F H 103.5 F H Pulse Rate 129 H 129 H Respiratory Rate 30 H 34 H Blood Pressure 105/58 L Pulse Oximetry 98 99 Oxygen Delivery Method Oximask Oxygen Flow Rate 5 09/21/24 17:40 09/21/24 17:45 09/21/24 17:45 Temperature 103.3 F H Pulse Rate 126 H Respiratory Rate 30 H Blood Pressure 110/56 L 108/57 L Pulse Oximetry 99 Oxygen Delivery Method Oxygen Flow Rate 09/21/24 17:50 09/21/24 17:50 09/21/24 17:54 Temperature 103.1 F H 102.9 F H Pulse Rate 126 H 125 H Respiratory Rate 22 23 Blood Pressure 97/54 L Pulse Oximetry 98 98 Oxygen Delivery Method Oximask Oxygen Flow Rate 5 09/21/24 17:54 09/21/24 17:55 09/21/24 17:55 Temperature 102.9 F H Pulse Rate 126 H Respiratory Rate 22 Blood Pressure 93/54 L 97/53 L Pulse Oximetry 98 Oxygen Delivery Method Oximask Oxygen Flow Rate 5 09/21/24 18:00 09/21/24 18:00 09/21/24 18:05 Temperature 102.6 F H 102.4 F H Pulse Rate 125 H 122 H Respiratory Rate 25 H 22 Blood Pressure 108/56 L Pulse Oximetry 98 99 Oxygen Delivery Method Oxygen Flow Rate 09/21/24 18:05 09/21/24 18:10 09/21/24 18:10 Temperature 102.2 F H Pulse Rate 122 H Respiratory Rate 21 Blood Pressure 97/55 L 96/54 L Pulse Oximetry 98 Oxygen Delivery Method Oxygen Flow Rate 09/21/24 18:15 09/21/24 18:15 09/21/24 18:20 Temperature 102.2 F H Pulse Rate 122 H Respiratory Rate 20 Blood Pressure 99/54 L 98/54 L Pulse Oximetry 97 Oxygen Delivery Method Oximask Oxygen Flow Rate 5 09/21/24 18:20 Temperature 102.0 F H Pulse Rate 121 H Respiratory Rate 20 Blood Pressure Pulse Oximetry 97 Oxygen Delivery Method Oximask Oxygen Flow Rate 5 Oxygen Delivery Method Oximask Oxygen Flow Rate 5 Narrative Exam Narrative: GEN: Alert and oriented X3. No acute distress. Well-nourished. EYES: PERRLA, EOMI. HENT: Moist mucus membranes, no scleral icterus, normal neck ROM. RESP: Unlabored breathing, equal rise and fall of chest bilaterally, no cyanosis appreciated. CV: No peripheral edema, unremarkable heart rate. ABD: Soft, non-tender, non-distended, no palpable masses. EXT: No edema, clubbing or cyanosis. SKIN: No rashes or lesions. NEURO: No focal neurologic deficits, CN II-XII grossly intact. PSYCH: Cooperative, appropriate mood and affect. Objective Labs 09/21/24 16:00 09/21/24 17:52 Labs: Laboratory Results - last 24 hr 09/21/24 09/21/24 09/21/24 15:45 16:00 16:17 WBC 10.2 RBC 3.29 L Hgb 9.7 L Hct 29.2 L MCV 88.7 MCH 29.4 MCHC 33.2 RDW 18.4 H Plt Count 153 Neut % (Auto) 95.3 H Lymph % (Auto) 2.9 L Spink % (Auto) 1.3 L Eos % (Auto) 0.1 L Baso % (Auto) 0.4 Neut # (Auto) 9700 H Lymph # (Auto) 300 L Spink # (Auto) 100 Eos # (Auto) 0 Baso # (Auto) 0 PT 15.7 H INR 1.4 H APTT 32 ABG Sample Site Left brachial ABG pH 7.49 H ABG pCO2 30.4 L ABG pO2 61 L ABG HCO3 23 ABG Total CO2 22 L ABG O2 Saturation 93 L ABG Base Excess 0.3 Niall Test N/a O2 Delivery Device Cannula FiO2 % 28.0 % Sodium 137 Potassium 5.3 H Chloride 99 Carbon Dioxide 23 BUN 45 H Creatinine 2.60 H Estimated GFR 24 L BUN/Creatinine Ratio 17.3 Glucose 256 H Lactate 6.2 H* Calcium 9.7 Total Bilirubin 1.4 H AST 51 ALT 41 Alkaline Phosphatase 110 Total Creatine Kinase 152 Total Protein 7.0 Albumin 3.6 Globulin 3.4 Albumin/Globulin Ratio 1.1 Lipase 54 Procalcitonin 6.36 H Urine Color Yellow Urine Appearance Clear Urine pH 5.0 Ur Specific [place] >=1.030 H Urine Protein 1+ H Urine Glucose (UA) 1+ H Urine Ketones Trace H Urine Occult Blood Negative Urine Nitrate Positive H Urine Bilirubin 1+ H Ur Bilirubin Confirm Negative Urine Urobilinogen 1.0 Ur Leukocyte Esterase Negative Urine RBC None seen Urine WBC 5-10/hpf H Ur Squamous Epith Cells 5-10 /hpf H Amorphous Sediment 1+ Urine Bacteria Many (>30) H Hyaline Casts 5-10/lpf Ur Culture Indicated? Specimen cultured Vol Urine Centrifuged 10ml (spun) SARS-CoV-2 (PCR) Influenza A (RT-PCR) Influenza B (RT-PCR) RSV (PCR) 09/21/24 09/21/24 16:25 17:52 WBC RBC Hgb Hct MCV MCH MCHC RDW Plt Count Neut % (Auto) Lymph % (Auto) [place] % (Auto) Eos % (Auto) Baso % (Auto) Neut # (Auto) Lymph # (Auto) Spink # (Auto) Eos # (Auto) Baso # (Auto) PT INR APTT ABG Sample Site ABG pH ABG pCO2 ABG pO2 ABG HCO3 ABG Total CO2 ABG O2 Saturation ABG Base Excess Niall Test O2 Delivery Device FiO2 % Sodium 133 L Potassium 3.9 D Chloride 101 Carbon Dioxide 24 BUN 44 H Creatinine 2.13 H Estimated GFR 31 L BUN/Creatinine Ratio 20.7 Glucose 249 H Lactate 2.4 H Calcium 7.8 L Total Bilirubin AST ALT Alkaline Phosphatase Total Creatine Kinase Total Protein Albumin Globulin Albumin/Globulin Ratio Lipase Procalcitonin Urine Color Urine Appearance Urine pH Ur Specific [place] Urine Protein Urine Glucose (UA) Urine Ketones Urine Occult Blood Urine Nitrate Urine Bilirubin Ur Bilirubin Confirm Urine Urobilinogen Ur Leukocyte Esterase Urine RBC Urine WBC Ur Squamous Epith Cells Amorphous Sediment Urine Bacteria Hyaline Casts Ur Culture Indicated? Vol Urine Centrifuged SARS-CoV-2 (PCR) Negative Influenza A (RT-PCR) Flu a negative Influenza B (RT-PCR) Flu b negative RSV (PCR) Negative PFSH Tobacco & Substance Use Smoking Status: Never smoker Assessment & Plan Assessment and plan (1) Ureteral calculus, right: Status: Acute Plan: 79 y/o M w/ h/o nephrolithiasis who is noted to have a 6mm right UVJ calculus w/o upstream hydroureteronephrosis in the setting of a Tmax of 104.9, tachycardia and hypotension concerning for an ongoing urinary tract infection. Discussed treatment options to include continued medical expulsion therapy (not recommended given his clinical picture and ongoing UTI) vs cystoscopy with right ureteral stent placement. Discussed risks of the procedure to include pain, bleeding, infection, injury to urethra/bladder/ureter, inability to access the ureter requiring discussion with Interventional Radiology regarding a possible ureteral stent placement in an antegrade fashion vs a possible nephroureteral stent and/or percutaneous nephrostomy tube, urinary tract infection, need for emergent open repair of bladder and/or ureter. Informed consent was obtained. (2) Urinary tract infection: Qualifiers: Urinary tract infection type: site unspecified Hematuria presence: w ithout hematuria Qualified Code(s): N39.0 - Urinary tract infection, site not specified Status: Acute Plan: Admit to hospitalist service for further management of his CRISTOFER and UTI, appreciate their assistance with this complicated patient. - Agree with broad-spectrum antibiotics at this point - Recommend tailoring to oral UCx directed antibiotics when available - DO NOT REMOVE LYN CATHETER WITHOUT SPEAKING TO [facility] - Urology will continue to follow while an inpatient Time-Based Coding :: [TOTAL MINUTES] spent with patient and on the chart (including review of chart, obtaining history, exam, reviewing outside data, placing orders, documenting exam and treatment plan, and counseling patient) on [DATE]. PROFEE Charge Codes Inpatient or Observation consultation: [id number]
--- NOTE | 2024-09-21 19:04 | PC.NURSE ---
I asked pt if he remembers talking to the doctor 10 minutes ago. Pt says yes and then says he told me i had kidney stones, and he described a way that he plans on removing them with infection. I gave him the go ahead to clear them out and signed papers.
--- NOTE | 2024-09-21 19:58 | SUR.OPER ---
Lithotomy on padded OR bed, head on pillow, arms secured on padded arm boards at <90 degrees abduction. Legs secured in padded yellow fins stirrups.
--- NOTE | 2024-09-21 20:03 | P.HP_ITS ---
History of Present Illness History of Present Illness Date Patient Seen: 09/21/24 Chief complaint: Weakness Narrative: 79 y/o with PMH of kidney stones, admitted with obstructing ureteral stone, UTI, sepsis with shock, had IVFs, abx, pressor and urgently taken to OR by urology for stenting. Seen postop in ICU. Asleep after the procedure, on IVFs, off pressor initially. Unable to participate with ROM. [facility] Social History Smoking Status: Never smoker Meds Home Medications and Allergies Home Medications Medication Instructions Recorded Confirmed Type diclofenac 75 mg-misoprostol 200 1 tab PO QDAY ##0 01/19/11 09/21/24 History mcg tablet,immediate,delayed release (Arthrotec) telmisartan 80 1 tab PO QDAY ##0 01/19/11 09/21/24 History mg-hydrochlorothiazide 25 mg tablet (Micardis HCT) folic acid 400 mcg tablet 0.4 mg PO DAILY 09/21/24 09/21/24 History metformin 500 mg tablet 500 mg PO 3XD 09/21/24 09/21/24 History pregabalin 150 mg capsule 150 mg PO BID 09/21/24 09/21/24 History tamsulosin 0.4 mg capsule 0.8 mg PO DAILY 09/21/24 09/21/24 History Allergies Allergy/AdvReac Type Severity Reaction Status Date / Time No Known Drug Allergies Allergy Verified 09/16/20 09:31 Review of Systems Review of Systems Narrative: Unobtainable, altered, postop Exam Vital Signs (past 8 hours): - 09/21/24 15:17 09/21/24 15:22 09/21/24 15:22 Temperature Pulse Rate 140 H 141 H Respiratory Rate 30 H 30 H Blood Pressure 166/116 H Pulse Oximetry 92 Oxygen Delivery Method Nasal Cannula Oxygen Flow Rate 1 09/21/24 15:29 09/21/24 15:30 09/21/24 15:52 Temperature 98.8 F 100.2 F H Pulse Rate 144 H 144 H 155 H Respiratory Rate 22 37 H 36 H Blood Pressure 166/116 H Pulse Oximetry Oxygen Delivery Method Oxygen Flow Rate 09/21/24 15:52 09/21/24 16:00 09/21/24 16:01 Temperature 101.3 F H Pulse Rate 150 H Respiratory Rate 33 H Blood Pressure 148/97 H 155/67 H Pulse Oximetry Oxygen Delivery Method Oxygen Flow Rate 09/21/24 16:01 09/21/24 16:30 09/21/24 16:39 Temperature 101.5 F H 104.0 F H Pulse Rate 150 H 138 H Respiratory Rate 34 H 30 H Blood Pressure 81/51 L Pulse Oximetry 95 Oxygen Delivery Method Nasal Cannula Oximask Oxygen Flow Rate 2 5 09/21/24 16:39 09/21/24 16:40 09/21/24 16:40 Temperature 104.5 F H 104.7 F H Pulse Rate 135 H 133 H Respiratory Rate 29 H 31 H Blood Pressure 81/51 L Pulse Oximetry Oxygen Delivery Method Oxygen Flow Rate 09/21/24 16:41 09/21/24 16:41 09/21/24 16:41 Temperature 104.7 F H Pulse Rate 133 H Respiratory Rate 29 H Blood Pressure 79/46 L 79/46 L Pulse Oximetry 83 L Oxygen Delivery Method Oxygen Flow Rate 09/21/24 16:46 09/21/24 16:46 09/21/24 16:47 Temperature 104.9 F H 104.9 F H Pulse Rate 133 H 133 H Respiratory Rate 31 H 27 H Blood Pressure 85/52 L Pulse Oximetry Oxygen Delivery Method Oxygen Flow Rate 09/21/24 16:47 09/21/24 16:55 09/21/24 16:55 Temperature 104.9 F H Pulse Rate 129 H Respiratory Rate 26 H Blood Pressure 92/51 L 88/54 L Pulse Oximetry 99 Oxygen Delivery Method Oximask Oxygen Flow Rate 5 09/21/24 17:00 09/21/24 17:01 09/21/24 17:01 Temperature 104.9 F H 104.9 F H Pulse Rate 130 H 132 H Respiratory Rate 28 H 32 H Blood Pressure 104/42 L Pulse Oximetry 98 88 L Oxygen Delivery Method Oximask Oximask Oxygen Flow Rate 5 09/21/24 17:05 09/21/24 17:05 09/21/24 17:10 Temperature 104.7 F H 104.5 F H Pulse Rate 134 H 132 H Respiratory Rate 35 H 33 H Blood Pressure 95/50 L Pulse Oximetry 97 97 Oxygen Delivery Method Oximask Oxygen Flow Rate 5 09/21/24 17:10 09/21/24 17:15 09/21/24 17:15 Temperature 104.4 F H Pulse Rate 132 H Respiratory Rate Blood Pressure 94/52 L 88/53 L Pulse Oximetry 96 Oxygen Delivery Method Oximask Oxygen Flow Rate 09/21/24 17:20 09/21/24 17:20 09/21/24 17:25 Temperature 104.2 F H 103.8 F H Pulse Rate 131 H 133 H Respiratory Rate 29 H Blood Pressure 102/57 L Pulse Oximetry 96 97 Oxygen Delivery Method Oximask Oxygen Flow Rate 09/21/24 17:25 09/21/24 17:30 09/21/24 17:30 Temperature 103.6 F H Pulse Rate 130 H Respiratory Rate 30 H Blood Pressure 106/58 L 106/57 L Pulse Oximetry 98 Oxygen Delivery Method Oxygen Flow Rate 09/21/24 17:35 09/21/24 17:35 09/21/24 17:40 Temperature 103.6 F H 103.5 F H Pulse Rate 129 H 129 H Respiratory Rate 30 H 34 H Blood Pressure 105/58 L Pulse Oximetry 98 99 Oxygen Delivery Method Oximask Oxygen Flow Rate 5 09/21/24 17:40 09/21/24 17:45 09/21/24 17:45 Temperature 103.3 F H Pulse Rate 126 H Respiratory Rate 30 H Blood Pressure 110/56 L 108/57 L Pulse Oximetry 99 Oxygen Delivery Method Oxygen Flow Rate 09/21/24 17:50 09/21/24 17:50 09/21/24 17:54 Temperature 103.1 F H 102.9 F H Pulse Rate 126 H 125 H Respiratory Rate 22 23 Blood Pressure 97/54 L Pulse Oximetry 98 98 Oxygen Delivery Method Oximask Oxygen Flow Rate 5 09/21/24 17:54 09/21/24 17:55 09/21/24 17:55 Temperature 102.9 F H Pulse Rate 126 H Respiratory Rate 22 Blood Pressure 93/54 L 97/53 L Pulse Oximetry 98 Oxygen Delivery Method Oximask Oxygen Flow Rate 5 09/21/24 18:00 09/21/24 18:00 09/21/24 18:05 Temperature 102.6 F H 102.4 F H Pulse Rate 125 H 122 H Respiratory Rate 25 H 22 Blood Pressure 108/56 L Pulse Oximetry 98 99 Oxygen Delivery Method Oxygen Flow Rate 09/21/24 18:05 09/21/24 18:10 09/21/24 18:10 Temperature 102.2 F H Pulse Rate 122 H Respiratory Rate 21 Blood Pressure 97/55 L 96/54 L Pulse Oximetry 98 Oxygen Delivery Method Oxygen Flow Rate 09/21/24 18:15 09/21/24 18:15 09/21/24 18:20 Temperature 102.2 F H Pulse Rate 122 H Respiratory Rate 20 Blood Pressure 99/54 L 98/54 L Pulse Oximetry 97 Oxygen Delivery Method Oximask Oxygen Flow Rate 5 09/21/24 18:20 09/21/24 18:25 09/21/24 18:25 Temperature 102.0 F H 101.8 F H Pulse Rate 121 H 120 H Respiratory Rate 20 20 Blood Pressure 102/56 L Pulse Oximetry 97 97 Oxygen Delivery Method Oximask Oxygen Flow Rate 5 09/21/24 18:30 09/21/24 18:30 09/21/24 18:35 Temperature 101.8 F H 101.7 F H Pulse Rate 121 H 119 H Respiratory Rate 22 21 Blood Pressure 95/55 L Pulse Oximetry 97 97 Oxygen Delivery Method Oximask Oxygen Flow Rate 5 09/21/24 18:35 09/21/24 18:40 09/21/24 18:40 Temperature 101.5 F H Pulse Rate 119 H Respiratory Rate 20 Blood Pressure 91/52 L 96/54 L Pulse Oximetry 97 Oxygen Delivery Method Oxygen Flow Rate 09/21/24 18:45 09/21/24 18:45 09/21/24 18:50 Temperature 101.5 F H 101.3 F H Pulse Rate 117 H 117 H Respiratory Rate 18 20 Blood Pressure 95/55 L Pulse Oximetry 97 97 Oxygen Delivery Method Oxygen Flow Rate 09/21/24 18:50 09/21/24 18:55 09/21/24 18:55 Temperature 101.3 F H Pulse Rate 119 H Respiratory Rate 28 H Blood Pressure 95/53 L 98/55 L Pulse Oximetry 97 Oxygen Delivery Method Oximask Oxygen Flow Rate 5 09/21/24 19:00 09/21/24 19:00 09/21/24 19:05 Temperature 101.1 F H 100.9 F H Pulse Rate 118 H 118 H Respiratory Rate 19 19 Blood Pressure 107/56 L Pulse Oximetry 98 98 Oxygen Delivery Method Oxygen Flow Rate 09/21/24 19:05 09/21/24 19:10 09/21/24 19:10 Temperature 100.9 F H Pulse Rate 119 H Respiratory Rate 24 Blood Pressure 107/57 L 101/56 L Pulse Oximetry 97 Oxygen Delivery Method Oximask Oxygen Flow Rate 5 09/21/24 19:15 09/21/24 19:15 09/21/24 19:20 Temperature 100.8 F H Pulse Rate 117 H Respiratory Rate 18 Blood Pressure 110/58 L 109/59 L Pulse Oximetry 97 Oxygen Delivery Method Oxygen Flow Rate 09/21/24 19:20 09/21/24 19:25 09/21/24 19:25 Temperature 100.8 F H 100.6 F H Pulse Rate 117 H 116 H Respiratory Rate 18 18 Blood Pressure 104/60 Pulse Oximetry 97 97 Oxygen Delivery Method Oximask Oximask Oxygen Flow Rate 5 5 09/21/24 19:30 09/21/24 19:30 09/21/24 19:35 Temperature 100.6 F H 100.4 F H Pulse Rate 116 H 115 H Respiratory Rate 18 18 Blood Pressure 106/59 L Pulse Oximetry 96 95 Oxygen Delivery Method Oximask Oxygen Flow Rate 5 09/21/24 19:35 09/21/24 19:40 09/21/24 19:40 Temperature 100.4 F H Pulse Rate 114 H Respiratory Rate 18 Blood Pressure 105/58 L 103/58 L Pulse Oximetry 96 Oxygen Delivery Method Oxygen Flow Rate 09/21/24 19:45 09/21/24 19:45 09/21/24 19:50 Temperature 100.2 F H 100.2 F H Pulse Rate 115 H 114 H Respiratory Rate 18 19 Blood Pressure 106/61 Pulse Oximetry 95 93 Oxygen Delivery Method Oxygen Flow Rate 09/21/24 19:50 09/21/24 19:55 09/21/24 19:55 Temperature 100.0 F H Pulse Rate 109 H Respiratory Rate 18 Blood Pressure 105/58 L 68/41 L Pulse Oximetry 93 Oxygen Delivery Method Oxygen Flow Rate 09/21/24 19:56 09/21/24 19:56 Temperature 100.0 F H Pulse Rate 105 H Respiratory Rate 23 Blood Pressure 64/41 L Pulse Oximetry 93 Oxygen Delivery Method Oximask Oxygen Flow Rate 5 Oxygen Delivery Method Oximask Oxygen Flow Rate 5 Narrative Exam Narrative: General - in no distress, sleeping in ICU after the procedure RS - on 6 L of oxygen via mask, poor respiratory effort CVS - RRR - GI - abdomen not distended - - Cross in place Objective Imaging CT scan - abdomen: Radiologist's impression: Several nonobstructing bilateral intrarenal calculi as described. Right-sided bladder wall calculus versus UVJ calculus without causing proximal obstruction. This may also have been recently passed. This was not previously present. Chest x-ray: Radiologist's impression: No acute cardiopulmonary abnormality is seen. Labs 09/22/24 03:50 09/22/24 03:50 Labs: Laboratory Results - last 24 hr 09/21/24 09/21/24 09/21/24 15:45 16:00 16:17 WBC 10.2 RBC 3.29 L Hgb 9.7 L Hct 29.2 L MCV 88.7 MCH 29.4 MCHC 33.2 RDW 18.4 H Plt Count 153 Neut % (Auto) 95.3 H Lymph % (Auto) 2.9 L [place] % (Auto) 1.3 L Eos % (Auto) 0.1 L Baso % (Auto) 0.4 Neut # (Auto) 9700 H Lymph # (Auto) 300 L [place] # (Auto) 100 Eos # (Auto) 0 Baso # (Auto) 0 PT 15.7 H INR 1.4 H APTT 32 ABG Sample Site Left brachial ABG pH 7.49 H ABG pCO2 30.4 L ABG pO2 61 L ABG HCO3 23 ABG Total CO2 22 L ABG O2 Saturation 93 L ABG Base Excess 0.3 Niall Test N/a O2 Delivery Device Cannula FiO2 % 28.0 % Sodium 137 Potassium 5.3 H Chloride 99 Carbon Dioxide 23 BUN 45 H Creatinine 2.60 H Estimated GFR 24 L BUN/Creatinine Ratio 17.3 Glucose 256 H Lactate 6.2 H* Calcium 9.7 Total Bilirubin 1.4 H AST 51 ALT 41 Alkaline Phosphatase 110 Total Creatine Kinase 152 Total Protein 7.0 Albumin 3.6 Globulin 3.4 Albumin/Globulin Ratio 1.1 Lipase 54 Procalcitonin 6.36 H Urine Color Yellow Urine Appearance Clear Urine pH 5.0 Ur Specific [place] >=1.030 H Urine Protein 1+ H Urine Glucose (UA) 1+ H Urine Ketones Trace H Urine Occult Blood Negative Urine Nitrate Positive H Urine Bilirubin 1+ H Ur Bilirubin Confirm Negative Urine Urobilinogen 1.0 Ur Leukocyte Esterase Negative Urine RBC None seen Urine WBC 5-10/hpf H Ur Squamous Epith Cells 5-10 /hpf H Amorphous Sediment 1+ Urine Bacteria Many (>30) H Hyaline Casts 5-10/lpf Ur Culture Indicated? Specimen cultured Vol Urine Centrifuged 10ml (spun) SARS-CoV-2 (PCR) Influenza A (RT-PCR) Influenza B (RT-PCR) RSV (PCR) 09/21/24 09/21/24 16:25 17:52 WBC RBC Hgb Hct MCV MCH MCHC RDW Plt Count Neut % (Auto) Lymph % (Auto) [place] % (Auto) Eos % (Auto) Baso % (Auto) Neut # (Auto) Lymph # (Auto) [place] # (Auto) Eos # (Auto) Baso # (Auto) PT INR APTT ABG Sample Site ABG pH ABG pCO2 ABG pO2 ABG HCO3 ABG Total CO2 ABG O2 Saturation ABG Base Excess Niall Test O2 Delivery Device FiO2 % Sodium 133 L Potassium 3.9 D Chloride 101 Carbon Dioxide 24 BUN 44 H Creatinine 2.13 H Estimated GFR 31 L BUN/Creatinine Ratio 20.7 Glucose 249 H Lactate 2.4 H Calcium 7.8 L Total Bilirubin AST ALT Alkaline Phosphatase Total Creatine Kinase Total Protein Albumin Globulin Albumin/Globulin Ratio Lipase Procalcitonin Urine Color Urine Appearance Urine pH Ur Specific [place] Urine Protein Urine Glucose (UA) Urine Ketones Urine Occult Blood Urine Nitrate Urine Bilirubin Ur Bilirubin Confirm Urine Urobilinogen Ur Leukocyte Esterase Urine RBC Urine WBC Ur Squamous Epith Cells Amorphous Sediment Urine Bacteria Hyaline Casts Ur Culture Indicated? Vol Urine Centrifuged SARS-CoV-2 (PCR) Negative Influenza A (RT-PCR) Flu a negative Influenza B (RT-PCR) Flu b negative RSV (PCR) Negative Assessment & Plan Assessment and plan (1) Ureteral calculus, right: Status: Acute (2) CRISTOFER (acute kidney injury): Status: Acute (3) Urinary tract infection: Qualifiers: Hematuria presence: without hematuria Urinary tract infection type: s ite unspecified Qualified Code(s): N39.0 - Urinary tract infection, site not specified Status: Acute (4) Septic shock: Status: Acute Assessment & Plan narrative: Obstructing stone - urology for stenting UTI / Septic shock - broad antibiotic coverage - IVFs - Levophed CRISTOFER / CKD - IVFs Anemia - monitored HH - DVT prophylaxis with SCDs Acute Hypoxic Respiratory Failure - postop atelectasis most likely - repeat CXR, r/o aspiration if not improved when awake Time-Based Coding :: [TOTAL MINUTES] spent with patient and on the chart (including review of chart, obtaining history, exam, reviewing outside data, placing orders, documenting exam and treatment plan, and counseling patient) on [DATE].
--- NOTE | 2024-09-21 20:05 | PC.NURSE ---
Called pt's Maria G and informed pt is going to Surgery.
--- NOTE | 2024-09-21 20:06 | PC.NURSE ---
Gave report to Sergio Garcia in surgery. Sergio GARCIA here and took pt to surgery.
[2024-09-21] MEDS: iopamidoL 30 ML VIAL INJ (20:37)
--- NOTE | 2024-09-21 20:44 | PM.OP.1 ---
Procedure & Clinicians Procedure: Cystoscopy Right retrograde ureteropyelogram Right ureteral stent placement Intraoperative interpretation of fluoroscopic images, total time < 1 hour Same procedure as scheduled: Yes Indications: 79 y/o M w/ h/o nephrolithiasis who is noted to have a 6mm right UVJ calculus w/o upstream hydroureteronephrosis in the setting of a Tmax of 104.9, tachycardia and hypotension concerning for an ongoing urinary tract infection. Surgeon: Yrn Maradiaga Click Yes if Unassisted: Yes Anesthesia Type: General Operative Notes Findings: Cloudy urine within bladder consistent with urinary tract infection Closure Type: not applicable Specimen(s): none sent Applied: catheter Estimated Blood Loss (mL): 2 Blood products transfused: none Procedure in detail: Patient was identified in the preoperative holding area and consent confirmed. He was then brought to the operating room where general anesthesia was induced.? He was then placed in the low lithotomy position. He was then prepped and draped in the usual sterile fashion. A surgical timeout was conducted and all were in agreement. Access to the bladder was obtained via a 21Fr cystoscope.? He was noted to have coaptating lateral prostatic lobes without an intravesical median lobe, no stones were noted within the bladder. Cloudy urine was immediately noted within the bladder.? The right ureteral orifice was easily visualized and a 0.035 sensor tip ureteral guidewire was advanced through the 5Fr ureteral catheter and into the right renal collecting system.? The ureteral guidewire was removed and a retrograde pyelogram was performed which noted mild right hydronephrosis.? The ureteral guidewire was readvanced through the ureteral catheter and into the right renal pelvis.? The ureteral catheter was then removed.? A 6Fr multi-length JJ ureteral stent without strings was then advanced over the ureteral guidewire and into the right renal collecting system.? Upon removal of the ureteral guidewire, a good curl was appreciated within the right renal pelvis upon fluoroscopy and visually within the bladder.? The bladder was then drained and the cystoscope was removed.? An 18Fr loco catheter was easily advanced into his bladder and 10cc of sterile water was utilized for balloon insufflation. Anesthesia was reversed, he was extubated in the OR and transferred to the PACU in stable condition for recovery. Complications: none Post-operative Condition: stable Disposition: Acute Care Plan for aftercare: Transfer to acute care vs ICU, depending upon hospitalist.
[2024-09-21] MEDS: ALBUTEROL/IPRATROPIUM 3 ML AMPUL INH (21:10)
[2024-09-21] MEDS: LACTATED RINGERS 1,000 ML 1000 ML IV (21:25)
[2024-09-21] MEDS: LACTATED RINGERS 1,000 ML 42 ML IV (21:26)
[2024-09-21] MEDS: SODIUM CHLORIDE 0.9% 1,000 ML 100 ML IV (22:24)
[2024-09-21] MEDS: NOREPINEPHRINE BITARTRATE/D5W 4 MG/250 ML PLAST..BAG 72.665 MG IV (22:32)
[2024-09-21 23:36] LABS: Lactate (Lactic Acid) 0.9 mmol/L (0.7-2.1)
[2024-09-21] MEDS: NOREPINEPHRINE BITARTRATE/D5W 4 MG/250 ML PLAST..BAG 57.527 MG IV (23:57)
[2024-09-22] VITALS (120 sets, daily range): BP systolic 72–152; BP diastolic 44–88; PULSE 74–145; RESP 13–32; TEMP 36–36.6; O2SAT 87–100; BMI 22.8
[2024-09-22 02:49] LABS: MRSA (Nasal) PCR DETECTED (Not Detect)
[2024-09-22] MEDS: NOREPINEPHRINE BITARTRATE/D5W 4 MG/250 ML PLAST..BAG 30.277 MG IV (03:10)
[2024-09-22 04:23] LABS: Add Manual Diff / Slide Review NO; Basophils Absolute Auto 0 /uL (0-100); Basophils Percent Auto 0.3 % (0-2); Eosinophils Absolute Auto 0 /uL (0-450); Hematocrit 23.5 % (41-53); Hemoglobin 7.9 g/dL (13.5-17.5); Lymphocytes Absolute Auto 400 /uL (1100-4500); Lymphocytes Percent Auto 3.5 % (25-40); Mean Corpuscular HGB Conc 33.6 % (30-36); Mean Corpuscular Hemoglobin 29.8 PG (26-34); Mean Corpuscular Volume 88.8 fL (80-100); Monocytes Absolute Auto 700 /uL (0-900); Monocytes Percent Auto 6.5 % (3-14); Neutrophils Absolute Auto 9300 /uL (1500-7000); Neutrophils Percent Auto 89.7 % (50-75); Platelet Count 121 X10^3/uL (150-400); Red Blood Cell Count 2.64 X10^6/uL (4.5-5.9); Red Cell Distribution Width 18.6 % (11.6-14.8); White Blood Cell Count 10.4 X10^3/uL (4.5-11.0)
[2024-09-22 04:34] LABS: BUN Creatinine Ratio 21.3 (6-22); Blood Urea Nitrogen 33 mg/dL (9-20); Carbon Dioxide 25 mmol/L (22-32); Chloride 102 mmol/L (98-107); Estimated Glomerular Filt Rate 46 mL/min (>60); Glucose 332 mg/dL (80-110); HEMOLYSIS < 15 (0-50); Potassium 4.3 mmol/L (3.4-5.1); Sodium 134 mmol/L (137-145)
--- NOTE | 2024-09-22 06:32 | PC.NURSE ---
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
[2024-09-22] MEDS: SODIUM CHLORIDE 0.9% 1,000 ML 100 ML IV ×2 (07:38→17:13)
[2024-09-22] MEDS: CEFEPIME 2 GM in SODIUM CHLORIDE 0.9% 100 ML IV ×2 (07:52→19:24)
[2024-09-22] MEDS: NOREPINEPHRINE BITARTRATE/D5W 4 MG/250 ML PLAST..BAG 22.708 MG IV (08:37)
[2024-09-22] MEDS: PANTOPRAZOLE 40 MG VIAL IV (08:37)
[2024-09-22 10:00] LABS: Acinetobacter calcoa-baumannii Not Detected (Not Detect); Bacteroides fragilis Not Detected (Not Detect); Candida albicans Not Detected (Not Detect); Candida auris Not Detected (Not Detect); Candida glabrata Not Detected (Not Detect); Candida krusei Not Detected (Not Detect); Candida parapsilosis Not Detected (Not Detect); Candida tropicalis Not Detected (Not Detect); Cryptococcus neoformans/gatti Not Detected (Not Detect); Enterobacter cloacae complex Not Detected (Not Detect); Enterobacterales Not Detected (Not Detect); Enterococcus faecalis Not Detected (Not Detect); Enterococcus faecium Not Detected (Not Detect); Haemophilus influenzae Not Detected (Not Detect); Klebsiella aerogenes Not Detected (Not Detect); Listeria monocytogenes Not Detected (Not Detect); Neisseria meningitidis Not Detected (Not Detect); Proteus species Not Detected (Not Detect); Pseudomonas aeruginosa Not Detected (Not Detect); Salmonella species Not Detected (Not Detect); Serratia marcescens Not Detected (Not Detect); Staphylococcus epidermidis Not Detected (Not Detect); Staphylococcus lugdunensis Not Detected (Not Detect); Staphylococcus species Not Detected (Not Detect); Stenotrophomonas maltophilia Not Detected (Not Detect); Streptococcus agalactiae (Gr B Not Detected (Not Detect); Streptococcus pneumonia Not Detected (Not Detect); Streptococcus pyogenes (Gr A) Not Detected (Not Detect); Streptococcus species Detected (Not Detect)
--- NOTE | 2024-09-22 11:39 | P.PN_ITS ---
Subjective Subjective Interval history: Chief complaint: Hypotension and symptomatic orthostasis with shock post ureteral procedure History of present illness: 79 y/o with PMH of kidney stones, admitted with obstructing ureteral stone, UTI, sepsis with shock, had IVFs, abx, pressor and urgently taken to OR by urology for stenting. Seen postop in ICU. Asleep after the procedure, on IVFs, off pressor initially. Unable to participate with ROM. Patient was admitted to ICU overnight placed on Levophed and intravenous fluids normal saline at 200 an hour maintaining a an AP of greater than 60-65 without symptomatology. Hospital course: 09/22: Maintained in AP 60-65 overnight with IV fluids at 200 an hour normal saline as well as Levophed. Patient has good urine output Nursing staff was able to titrate Levophed dose down. Patient is not having any significant physical complaints at this time was able to stand with assistance and transfer to [facility] without orthostasis. Patient had no acute distress heart and lungs are clear Can continue to titrate down Levophed reduce IV fluids to 100 Review of systems: No dizziness headache diplopia No difficulty swallowing No palpitations No cough or shortness of breath No nausea vomiting diarrhea No paresthesia or paresis Physical exam: Elderly patient alert oriented no acute distress in good spirit HEENT unremarkable Neck no JVD Heart rate and rhythm regular no murmurs appreciated Lungs clear from apices to bases Abdomen nondistended Neurologic nonfocal able to stand and transfer Exam Vital Signs (past 8 hours): - 09/22/24 03:45 09/22/24 03:45 09/22/24 04:00 Temperature Pulse Rate 79 Respiratory Rate 16 Blood Pressure 106/65 94/56 L Pulse Oximetry 98 Oxygen Delivery Method Oxygen Flow Rate 09/22/24 04:00 09/22/24 04:15 09/22/24 04:15 Temperature 97.8 F Pulse Rate 86 83 Respiratory Rate 18 18 Blood Pressure 97/60 Pulse Oximetry 98 97 Oxygen Delivery Method Oxygen Flow Rate 6 09/22/24 04:30 09/22/24 04:31 09/22/24 04:31 Temperature Pulse Rate 84 83 Respiratory Rate 18 15 Blood Pressure 97/59 L Pulse Oximetry 98 98 Oxygen Delivery Method Oxygen Flow Rate 09/22/24 04:45 09/22/24 04:45 09/22/24 05:00 Temperature Pulse Rate 83 Respiratory Rate 17 Blood Pressure 96/56 L 100/60 Pulse Oximetry 99 Oxygen Delivery Method Oxygen Flow Rate 09/22/24 05:00 09/22/24 05:15 09/22/24 05:15 Temperature Pulse Rate 85 84 Respiratory Rate 15 14 Blood Pressure 102/58 L Pulse Oximetry 98 98 Oxygen Delivery Method Oxygen Flow Rate 09/22/24 05:30 09/22/24 05:30 09/22/24 05:45 Temperature Pulse Rate 89 86 Respiratory Rate 14 15 Blood Pressure 96/55 L Pulse Oximetry 98 97 Oxygen Delivery Method Oxygen Flow Rate 09/22/24 05:45 09/22/24 06:00 09/22/24 06:00 Temperature Pulse Rate 83 Respiratory Rate 15 Blood Pressure 98/53 L 95/56 L Pulse Oximetry 97 Oxygen Delivery Method Oxygen Flow Rate 09/22/24 06:15 09/22/24 06:15 09/22/24 06:30 Temperature Pulse Rate 81 Respiratory Rate 15 Blood Pressure 93/56 L 98/59 L Pulse Oximetry 96 Oxygen Delivery Method Oxygen Flow Rate 6 09/22/24 06:30 09/22/24 06:30 09/22/24 06:45 Temperature Pulse Rate 80 81 Respiratory Rate 15 15 Blood Pressure 98/59 L Pulse Oximetry 96 94 Oxygen Delivery Method Oxygen Flow Rate 09/22/24 06:45 09/22/24 07:00 09/22/24 07:00 Temperature Pulse Rate 80 Respiratory Rate 16 Blood Pressure 97/58 L 100/59 L Pulse Oximetry 96 Oxygen Delivery Method Oxygen Flow Rate 09/22/24 07:30 09/22/24 07:30 09/22/24 07:45 Temperature Pulse Rate 74 78 Respiratory Rate 18 16 Blood Pressure 114/63 Pulse Oximetry 96 93 Oxygen Delivery Method Oxygen Flow Rate 09/22/24 07:45 09/22/24 08:00 09/22/24 08:00 Temperature Pulse Rate 80 Respiratory Rate 16 Blood Pressure 110/65 113/69 Pulse Oximetry 93 Oxygen Delivery Method Oxygen Flow Rate 09/22/24 08:00 09/22/24 08:15 09/22/24 08:23 Temperature Pulse Rate 145 H 82 Respiratory Rate 22 17 Blood Pressure 87/52 L 112/62 Pulse Oximetry 92 90 L Oxygen Delivery Method Room Air Oxygen Flow Rate 09/22/24 08:30 09/22/24 08:30 09/22/24 08:45 Temperature Pulse Rate 80 84 Respiratory Rate 18 17 Blood Pressure 124/71 107/61 Pulse Oximetry 90 L 90 L Oxygen Delivery Method Oxygen Flow Rate 09/22/24 08:45 09/22/24 09:00 09/22/24 09:15 Temperature Pulse Rate 84 85 Respiratory Rate 17 15 Blood Pressure 111/65 108/63 Pulse Oximetry 90 L 91 Oxygen Delivery Method Oxygen Flow Rate 09/22/24 09:15 09/22/24 09:30 09/22/24 09:45 Temperature Pulse Rate 85 84 85 Respiratory Rate 15 15 13 Blood Pressure 115/66 114/64 Pulse Oximetry 91 92 92 Oxygen Delivery Method Oxygen Flow Rate 09/22/24 10:00 Temperature Pulse Rate 86 Respiratory Rate 14 Blood Pressure 113/65 Pulse Oximetry 93 Oxygen Delivery Method Oxygen Flow Rate Oxygen Delivery Method Room Air Oxygen Flow Rate 6 Objective Labs 09/22/24 03:50 09/22/24 03:50 Labs: Laboratory Results - last 24 hr 09/21/24 09/21/24 09/21/24 15:45 16:00 16:17 WBC 10.2 RBC 3.29 L Hgb 9.7 L Hct 29.2 L MCV 88.7 MCH 29.4 MCHC 33.2 RDW 18.4 H Plt Count 153 Neut % (Auto) 95.3 H Lymph % (Auto) 2.9 L [place] % (Auto) 1.3 L Eos % (Auto) 0.1 L Baso % (Auto) 0.4 Neut # (Auto) 9700 H Lymph # (Auto) 300 L [place] # (Auto) 100 Eos # (Auto) 0 Baso # (Auto) 0 PT 15.7 H INR 1.4 H APTT 32 ABG Sample Site Left brachial ABG pH 7.49 H ABG pCO2 30.4 L ABG pO2 61 L ABG HCO3 23 ABG Total CO2 22 L ABG O2 Saturation 93 L ABG Base Excess 0.3 Niall Test N/a O2 Delivery Device Cannula FiO2 % 28.0 % Sodium 137 Potassium 5.3 H Chloride 99 Carbon Dioxide 23 BUN 45 H Creatinine 2.60 H Estimated GFR 24 L BUN/Creatinine Ratio 17.3 Glucose 256 H Lactate 6.2 H* Calcium 9.7 Total Bilirubin 1.4 H AST 51 ALT 41 Alkaline Phosphatase 110 Total Creatine Kinase 152 Total Protein 7.0 Albumin 3.6 Globulin 3.4 Albumin/Globulin Ratio 1.1 Lipase 54 Procalcitonin 6.36 H Urine Color Yellow Urine Appearance Clear Urine pH 5.0 Ur Specific [place] >=1.030 H Urine Protein 1+ H Urine Glucose (UA) 1+ H Urine Ketones Trace H Urine Occult Blood Negative Urine Nitrate Positive H Urine Bilirubin 1+ H Ur Bilirubin Confirm Negative Urine Urobilinogen 1.0 Ur Leukocyte Esterase Negative Urine RBC None seen Urine WBC 5-10/hpf H Ur Squamous Epith Cells 5-10 /hpf H Amorphous Sediment 1+ Urine Bacteria Many (>30) H Hyaline Casts 5-10/lpf Ur Culture Indicated? Specimen cultured Vol Urine Centrifuged 10ml (spun) Nasal Screen MRSA (PCR) A.calcoaceticus-baumannii cmplx PCR Bacteroides fragilis Jael albicans (PCR) Jael auris (PCR) C. glabrata (PCR) C. krusei (PCR) C. parapsilosis (PCR) C. tropicalis (PCR) SARS-CoV-2 (PCR) C. neoform/gattii (PCR) Enterobacterales (PCR) E. cloacae complex PCR Enterococc faecalis PCR Enterococc faecium PCR E. coli (PCR) H. influenzae (PCR) Influenza A (RT-PCR) Influenza B (RT-PCR) Klebsiella aerogenes (PCR) Klebsiella oxytoca PCR Klebsiella pneumoniae List. monocytogenes PCR N. meningitidis (PCR) Proteus species (PCR) RSV (PCR) Salmonella spp. (PCR) Serratia marcescens PCR Staphylococcus sp PCR Staph aureus (PCR) mecA/C & MREJ Resist Gene mecA/C-Methicil Resis Gene mcr-1 Colistin Res Gene PCR Staph epidermidis (PCR) Staph lugdunensis PCR S. maltophilia (PCR) Streptococcus sp PCR Group A Strep (PCR) Strep agalactiae (PCR) Strep pneumoniae (PCR) P. aeruginosa (PCR) Ben/B-Vanco Res Genes blaIMP Car res Gene PCR KPC-Carbap Res Gene PCR blaNDM Car Res Gene PCR OXA-48 Carbapenem Resis Gene (PCR) blaVIM Car Res Gene PCR CTX-M Gene Resistance (PCR) 09/21/24 09/21/24 09/21/24 16:25 17:00 17:52 WBC RBC Hgb Hct MCV MCH MCHC RDW Plt Count Neut % (Auto) Lymph % (Auto) [place] % (Auto) Eos % (Auto) Baso % (Auto) Neut # (Auto) Lymph # (Auto) [place] # (Auto) Eos # (Auto) Baso # (Auto) PT INR APTT ABG Sample Site ABG pH ABG pCO2 ABG pO2 ABG HCO3 ABG Total CO2 ABG O2 Saturation ABG Base Excess Niall Test O2 Delivery Device FiO2 % Sodium 133 L Potassium 3.9 D Chloride 101 Carbon Dioxide 24 BUN 44 H Creatinine 2.13 H Estimated GFR 31 L BUN/Creatinine Ratio 20.7 Glucose 249 H Lactate 2.4 H Calcium 7.8 L Total Bilirubin AST ALT Alkaline Phosphatase Total Creatine Kinase Total Protein Albumin Globulin Albumin/Globulin Ratio Lipase Procalcitonin Urine Color Urine Appearance Urine pH Ur Specific [place] Urine Protein Urine Glucose (UA) Urine Ketones Urine Occult Blood Urine Nitrate Urine Bilirubin Ur Bilirubin Confirm Urine Urobilinogen Ur Leukocyte Esterase Urine RBC Urine WBC Ur Squamous Epith Cells Amorphous Sediment Urine Bacteria Hyaline Casts Ur Culture Indicated? Vol Urine Centrifuged Nasal Screen MRSA (PCR) A.calcoaceticus-baumannii cmplx PCR Not detected Bacteroides fragilis Not detected Jael albicans (PCR) Not detected Jael auris (PCR) Not detected C. glabrata (PCR) Not detected C. krusei (PCR) Not detected C. parapsilosis (PCR) Not detected C. tropicalis (PCR) Not detected SARS-CoV-2 (PCR) Negative C. neoform/gattii (PCR) Not detected Enterobacterales (PCR) Not detected E. cloacae complex PCR Not detected Enterococc faecalis PCR Not detected Enterococc faecium PCR Not detected E. coli (PCR) Not detected H. influenzae (PCR) Not detected Influenza A (RT-PCR) Flu a negative Influenza B (RT-PCR) Flu b negative Klebsiella aerogenes (PCR) Not detected Klebsiella oxytoca PCR Not detected Klebsiella pneumoniae Not detected List. monocytogenes PCR Not detected N. meningitidis (PCR) Not detected Proteus species (PCR) Not detected RSV (PCR) Negative Salmonella spp. (PCR) Not detected Serratia marcescens PCR Not detected Staphylococcus sp PCR Not detected Staph aureus (PCR) Not detected mecA/C & MREJ Resist Gene Not applicable mecA/C-Methicil Resis Gene Not applicable mcr-1 Colistin Res Gene PCR Not applicable Staph epidermidis (PCR) Not detected Staph lugdunensis PCR Not detected S. maltophilia (PCR) Not detected Streptococcus sp PCR Detected Group A Strep (PCR) Not detected Strep agalactiae (PCR) Not detected Strep pneumoniae (PCR) Not detected P. aeruginosa (PCR) Not detected Ben/B-Vanco Res Genes Not applicable blaIMP Car res Gene PCR Not applicable KPC-Carbap Res Gene PCR Not applicable blaNDM Car Res Gene PCR Not applicable OXA-48 Carbapenem Resis Gene (PCR) Not applicable blaVIM Car Res Gene PCR Not applicable CTX-M Gene Resistance (PCR) Not applicable 09/21/24 09/21/24 09/22/24 21:54 23:15 03:50 WBC 10.4 RBC 2.64 L Hgb 7.9 L Hct 23.5 L MCV 88.8 MCH 29.8 MCHC 33.6 RDW 18.6 H Plt Count 121 L Neut % (Auto) 89.7 H Lymph % (Auto) 3.5 L [place] % (Auto) 6.5 Eos % (Auto) 0.0 L Baso % (Auto) 0.3 Neut # (Auto) 9300 H Lymph # (Auto) 400 L [place] # (Auto) 700 Eos # (Auto) 0 Baso # (Auto) 0 PT INR APTT ABG Sample Site ABG pH ABG pCO2 ABG pO2 ABG HCO3 ABG Total CO2 ABG O2 Saturation ABG Base Excess Niall Test O2 Delivery Device FiO2 % Sodium 134 L Potassium 4.3 Chloride 102 Carbon Dioxide 25 BUN 33 H Creatinine 1.55 H Estimated GFR 46 L BUN/Creatinine Ratio 21.3 Glucose 332 H Lactate 0.9 Calcium 8.0 L Total Bilirubin AST ALT Alkaline Phosphatase Total Creatine Kinase Total Protein Albumin Globulin Albumin/Globulin Ratio Lipase Procalcitonin Urine Color Urine Appearance Urine pH Ur Specific [place] Urine Protein Urine Glucose (UA) Urine Ketones Urine Occult Blood Urine Nitrate Urine Bilirubin Ur Bilirubin Confirm Urine Urobilinogen Ur Leukocyte Esterase Urine RBC Urine WBC Ur Squamous Epith Cells Amorphous Sediment Urine Bacteria Hyaline Casts Ur Culture Indicated? Vol Urine Centrifuged Nasal Screen MRSA (PCR) Detected H A.calcoaceticus-baumannii cmplx PCR Bacteroides fragilis Jael albicans (PCR) Jael auris (PCR) C. glabrata (PCR) C. krusei (PCR) C. parapsilosis (PCR) C. tropicalis (PCR) SARS-CoV-2 (PCR) C. neoform/gattii (PCR) Enterobacterales (PCR) E. cloacae complex PCR Enterococc faecalis PCR Enterococc faecium PCR E. coli (PCR) H. influenzae (PCR) Influenza A (RT-PCR) Influenza B (RT-PCR) Klebsiella aerogenes (PCR) Klebsiella oxytoca PCR Klebsiella pneumoniae List. monocytogenes PCR N. meningitidis (PCR) Proteus species (PCR) RSV (PCR) Salmonella spp. (PCR) Serratia marcescens PCR Staphylococcus sp PCR Staph aureus (PCR) mecA/C & MREJ Resist Gene mecA/C-Methicil Resis Gene mcr-1 Colistin Res Gene PCR Staph epidermidis (PCR) Staph lugdunensis PCR S. maltophilia (PCR) Streptococcus sp PCR Group A Strep (PCR) Strep agalactiae (PCR) Strep pneumoniae (PCR) P. aeruginosa (PCR) Ben/B-Vanco Res Genes blaIMP Car res Gene PCR KPC-Carbap Res Gene PCR blaNDM Car Res Gene PCR OXA-48 Carbapenem Resis Gene (PCR) blaVIM Car Res Gene PCR CTX-M Gene Resistance (PCR) PFSH Social History Smoking Status: Never smoker Assessment & Plan Assessment & Plan narrative: Obstructing stone - urology for stenting UTI / Septic shock - broad antibiotic coverage - IVFs - Levophed on taper - anticipate 24-48 hours more hospitalization CRISTOFER / CKD - IVFs -monitor daily BUN creatinine Anemia - monitored HH - DVT prophylaxis with SCDs Acute Hypoxic Respiratory Failure - postop atelectasis most likely - repeat CXR, r/o aspiration if not improved when awake Time-Based Coding :: Thirty-five minutes spent with patient and on the chart (including review of chart, obtaining history, exam, reviewing outside data, placing orders, documenting exam and treatment plan, and counseling patient) on 09/22/2024 Time-Based Coding :: [TOTAL MINUTES] spent with patient and on the chart (including review of chart, obtaining history, exam, reviewing outside data, placing orders, documenting exam and treatment plan, and counseling patient) on [DATE]. Quality VTE Deep Vein Thrombosis/Pulmonary Embolism Present on Admission: No
[2024-09-22] MEDS: INSULIN LISPRO 100 UNIT/ML 3ML VIAL SUBCUT ×2 (12:14→20:47)
--- NOTE | 2024-09-22 14:39 | CM.DANOTE ---
Initial DCP Assessment Visit Reviewed EMR and team rounds for pt's medical status and updates. Met with pt at bedside to introduce self and role, pt was found to be alert/oriented, sitting upright in bed eating his lunch. Pt lives independently at baseline with his spouse in their own home in [place], he has been using a walker more recently due to post-chemo tx fatigue/weakness. His spouse will plan to transport him home, anticipated for tomorrow 09/23. He denies any CM d/c assistance/resource needs at this time. Payor: [employer] PCP: Dr. Jay Pt is a 79 year-old M with currently in tx for lung cancer, presented to the ED with c/o weakness/fevers/fatigue 2-weeks after his last chemo tx. He was also found to be in sinus tachycardia, UTI suspected from his urine cultures, so was started on IV fluids and ABO's for septic shock. CT abd also showed an obstructing stone in the right side of his ureter. Urology was consulted, and the plan was made to admit for planned OR stent placement surgery. Pt did have this done yesterday, however he remained in due to IV ABO need, orthostatis, and low blood pressure. DCP will continue to monitor for any final d/c needs/resources/recommendations. Discharge Planning/Care Management CM Discharge Assessment Start: 09/22/24 14:24 Freq: Status: Active Protocol: Document 09/22/24 14:24 DPL (Rec: 09/22/24 14:39 DPL [id number]) Discharge Planning Assessment Assigned Manager Of Internal NEIL Marshall Advance Directives? No History Provided By Patient,Medical Record Has Patient been admitted in last 30 No days? Prior Living Arrangements House Household Members spouse Type of transporation used prior to Relies on Others admit Independent with ADL's Yes: lately he has been using a walker due to fatigue/ weakness from infection Is patient alert and oriented? Yes Needs Assistance With Home Chores / Shopping Caregiver for Another No Comment OP Oncology tx DME Already Rented / Owned Wheelchair,Elevated Toilet Seat,FWW / Walker Comment No identified home d/c needs at this time. Barriers to Discharge No Discharge Plan Home Transportation Arrangement Spouse Referrals Initiated None needed Whiteboard Updated in Patient Room with Yes name and ext. # of Manager Of Internal Review Status In Process Please Provide Date Initial DC 09/22/24 Assessment Was Performed
[2024-09-22 14:58] LABS: Hemoglobin A1C% w Est Avg Glu 5.9 % (4.0-6.0)
[2024-09-22] MEDS: VANCOMYCIN 1,250 MG/250 ML PIGGYBACK 250 MG IV (16:49)
[2024-09-22] MEDS: SODIUM CHLORIDE 0.9% FLUSH 10 ML IV ×2 (16:49→20:09)
--- NOTE | 2024-09-22 17:14 | PM.CN.IH.1 ---
History of Present Illness Consult details Date Patient Seen: 09/22/24 Time Patient Seen: 17:15 Chief complaint: Weakness Narrative: 79 y/o M w/ h/o nephrolithiasis who was noted to have a 6mm right UVJ calculus w/o upstream hydroureteronephrosis in the setting of a Tmax of 104.9, tachycardia and hypotension concerning for an ongoing urinary tract infection on 21 Sep 2024 and was managed w/ a cystoscopy and urgent right ureteral stent placement. He admits that he feels better today and is not quite as confused. His WBC has remained stable at ~10, sCr downtrended to 1.55 from 2.13. He remains on Vanc and Cefepime at the moment. His UCx shows no growth to date, however, his BCx is preliminary positive for GPC. Meds Home Medications and Allergies Home Medications Medication Instructions Recorded Confirmed Type diclofenac 75 mg-misoprostol 200 1 tab PO QDAY ##0 01/19/11 09/21/24 History mcg tablet,immediate,delayed release (Arthrotec) telmisartan 80 1 tab PO QDAY ##0 01/19/11 09/21/24 History mg-hydrochlorothiazide 25 mg tablet (Micardis HCT) folic acid 400 mcg tablet 0.4 mg PO DAILY 09/21/24 09/21/24 History metformin 500 mg tablet 500 mg PO 3XD 09/21/24 09/21/24 History pregabalin 150 mg capsule 150 mg PO BID 09/21/24 09/21/24 History tamsulosin 0.4 mg capsule 0.8 mg PO DAILY 09/21/24 09/21/24 History Allergies Allergy/AdvReac Type Severity Reaction Status Date / Time No Known Drug Allergies Allergy Verified 09/16/20 09:31 Review of Systems Review of Systems Narrative: CONSTITUTIONAL: Denies weight loss, fevers, chills. HEENT: Denies change in vision, hearing. RESP: Denies SOB, cough. CV: Denies palpations, CP. GI: Denies abdominal pain, nausea, vomiting, diarrhea. MSK: Denies myalgia, joint pain. SKIN: Denies rash, pruritus. NEURO: Denies headache, syncope. PSYCH: Denies recent change in mood, anxiety, depression. Exam Vital Signs (past 8 hours): - 09/22/24 09:15 09/22/24 09:15 09/22/24 09:30 Temperature Pulse Rate 85 84 Respiratory Rate 15 15 Blood Pressure 108/63 115/66 Pulse Oximetry 91 92 Oxygen Delivery Method Oxygen Flow Rate 09/22/24 09:30 09/22/24 09:45 09/22/24 10:00 Temperature Pulse Rate 85 86 Respiratory Rate 13 14 Blood Pressure 114/64 113/65 Pulse Oximetry 92 93 Oxygen Delivery Method Oxygen Flow Rate 0 09/22/24 10:00 09/22/24 10:15 09/22/24 10:15 Temperature Pulse Rate 85 94 H Respiratory Rate 18 24 Blood Pressure 113/64 Pulse Oximetry 93 92 Oxygen Delivery Method Oxygen Flow Rate 09/22/24 10:30 09/22/24 10:30 09/22/24 10:45 Temperature Pulse Rate 81 82 Respiratory Rate 17 17 Blood Pressure 114/65 Pulse Oximetry 93 93 Oxygen Delivery Method Oxygen Flow Rate 09/22/24 10:45 09/22/24 11:00 09/22/24 11:00 Temperature Pulse Rate 81 Respiratory Rate 17 Blood Pressure 113/67 125/71 Pulse Oximetry 93 Oxygen Delivery Method Oxygen Flow Rate 09/22/24 11:00 09/22/24 11:12 09/22/24 11:12 Temperature 96.8 F L Pulse Rate 90 Respiratory Rate 22 Blood Pressure 96/55 L Pulse Oximetry Oxygen Delivery Method Oxygen Flow Rate 09/22/24 11:15 09/22/24 11:15 09/22/24 11:29 Temperature Pulse Rate 93 H Respiratory Rate 22 Blood Pressure 95/51 L 115/61 Pulse Oximetry Oxygen Delivery Method Oxygen Flow Rate 09/22/24 11:30 09/22/24 11:35 09/22/24 11:40 Temperature Pulse Rate 94 H 92 H 86 Respiratory Rate 21 20 21 Blood Pressure 120/62 111/66 113/66 Pulse Oximetry 94 93 93 Oxygen Delivery Method Oxygen Flow Rate 09/22/24 11:45 09/22/24 11:45 09/22/24 11:45 Temperature Pulse Rate 87 87 Respiratory Rate 20 Blood Pressure 112/66 112/66 Pulse Oximetry 94 Oxygen Delivery Method Oxygen Flow Rate 09/22/24 11:50 09/22/24 11:50 09/22/24 11:55 Temperature Pulse Rate 86 Respiratory Rate 23 Blood Pressure 115/64 100/59 L Pulse Oximetry 93 Oxygen Delivery Method Oxygen Flow Rate 09/22/24 11:55 09/22/24 12:00 09/22/24 12:00 Temperature 96.8 F L Pulse Rate 88 88 Respiratory Rate 21 Blood Pressure 100/59 L Pulse Oximetry 94 Oxygen Delivery Method Oxygen Flow Rate 09/22/24 12:00 09/22/24 12:00 09/22/24 12:05 Temperature Pulse Rate 88 91 H Respiratory Rate 20 18 Blood Pressure 100/59 L Pulse Oximetry 94 95 Oxygen Delivery Method Oxygen Flow Rate 09/22/24 12:05 09/22/24 12:10 09/22/24 12:10 Temperature Pulse Rate 91 H Respiratory Rate 20 Blood Pressure 101/57 L 103/57 L Pulse Oximetry 95 Oxygen Delivery Method Oxygen Flow Rate 09/22/24 12:13 09/22/24 12:13 09/22/24 12:30 Temperature Pulse Rate 91 H 87 Respiratory Rate 20 20 Blood Pressure 112/58 L 111/57 L Pulse Oximetry 94 96 Oxygen Delivery Method Oxygen Flow Rate 09/22/24 12:30 09/22/24 13:00 09/22/24 13:30 Temperature Pulse Rate 87 87 101 H Respiratory Rate 20 19 19 Blood Pressure 83/53 L 90/54 L Pulse Oximetry 96 96 96 Oxygen Delivery Method Oxygen Flow Rate 09/22/24 13:42 09/22/24 14:00 09/22/24 14:30 Temperature Pulse Rate 100 H 103 H 94 H Respiratory Rate 20 27 H 18 Blood Pressure 88/53 L 112/55 L Pulse Oximetry 90 L Oxygen Delivery Method Oxygen Flow Rate 0 09/22/24 15:00 09/22/24 15:00 09/22/24 15:00 Temperature Pulse Rate 90 Respiratory Rate 19 Blood Pressure 97/53 L Pulse Oximetry 90 L Oxygen Delivery Method Room Air Oxygen Flow Rate Oxygen Delivery Method Room Air Oxygen Flow Rate 0 Narrative Exam Narrative: GEN: Alert and oriented X3. No acute distress. Well-nourished. EYES: PERRLA, EOMI. HENT: Moist mucus membranes, no scleral icterus, normal neck ROM. RESP: Unlabored breathing, equal rise and fall of chest bilaterally, no cyanosis appreciated. CV: No peripheral edema, unremarkable heart rate. ABD: Soft, non-tender, non-distended, no palpable masses. : Lyn secured and draining clear yellow urine. EXT: No edema, clubbing or cyanosis. SKIN: No rashes or lesions. NEURO: No focal neurologic deficits, CN II-XII grossly intact. PSYCH: Cooperative, appropriate mood and affect. Objective Labs 09/22/24 03:50 09/22/24 03:50 Labs: Laboratory Results - last 24 hr 09/21/24 09/21/24 09/21/24 16:25 17:00 17:52 WBC RBC Hgb Hct MCV MCH MCHC RDW Plt Count Neut % (Auto) Lymph % (Auto) [place] % (Auto) Eos % (Auto) Baso % (Auto) Neut # (Auto) Lymph # (Auto) [place] # (Auto) Eos # (Auto) Baso # (Auto) Sodium 133 L Potassium 3.9 D Chloride 101 Carbon Dioxide 24 BUN 44 H Creatinine 2.13 H Estimated GFR 31 L BUN/Creatinine Ratio 20.7 Glucose 249 H Hemoglobin A1c Lactate 2.4 H Calcium 7.8 L Nasal Screen MRSA (PCR) A.calcoaceticus-baumannii cmplx PCR Not detected Bacteroides fragilis Not detected Jael albicans (PCR) Not detected Jael auris (PCR) Not detected C. glabrata (PCR) Not detected C. krusei (PCR) Not detected C. parapsilosis (PCR) Not detected C. tropicalis (PCR) Not detected SARS-CoV-2 (PCR) Negative C. neoform/gattii (PCR) Not detected Enterobacterales (PCR) Not detected E. cloacae complex PCR Not detected Enterococc faecalis PCR Not detected Enterococc faecium PCR Not detected E. coli (PCR) Not detected H. influenzae (PCR) Not detected Influenza A (RT-PCR) Flu a negative Influenza B (RT-PCR) Flu b negative Klebsiella aerogenes (PCR) Not detected Klebsiella oxytoca PCR Not detected Klebsiella pneumoniae Not detected List. monocytogenes PCR Not detected N. meningitidis (PCR) Not detected Proteus species (PCR) Not detected RSV (PCR) Negative Salmonella spp. (PCR) Not detected Serratia marcescens PCR Not detected Staphylococcus sp PCR Not detected Staph aureus (PCR) Not detected mecA/C & MREJ Resist Gene Not applicable mecA/C-Methicil Resis Gene Not applicable mcr-1 Colistin Res Gene PCR Not applicable Staph epidermidis (PCR) Not detected Staph lugdunensis PCR Not detected S. maltophilia (PCR) Not detected Streptococcus sp PCR Detected Group A Strep (PCR) Not detected Strep agalactiae (PCR) Not detected Strep pneumoniae (PCR) Not detected P. aeruginosa (PCR) Not detected Ben/B-Vanco Res Genes Not applicable blaIMP Car res Gene PCR Not applicable KPC-Carbap Res Gene PCR Not applicable blaNDM Car Res Gene PCR Not applicable OXA-48 Carbapenem Resis Gene (PCR) Not applicable blaVIM Car Res Gene PCR Not applicable CTX-M Gene Resistance (PCR) Not applicable 09/21/24 09/21/24 09/22/24 21:54 23:15 03:50 WBC 10.4 RBC 2.64 L Hgb 7.9 L Hct 23.5 L MCV 88.8 MCH 29.8 MCHC 33.6 RDW 18.6 H Plt Count 121 L Neut % (Auto) 89.7 H Lymph % (Auto) 3.5 L [place] % (Auto) 6.5 Eos % (Auto) 0.0 L Baso % (Auto) 0.3 Neut # (Auto) 9300 H Lymph # (Auto) 400 L [place] # (Auto) 700 Eos # (Auto) 0 Baso # (Auto) 0 Sodium 134 L Potassium 4.3 Chloride 102 Carbon Dioxide 25 BUN 33 H Creatinine 1.55 H Estimated GFR 46 L BUN/Creatinine Ratio 21.3 Glucose 332 H Hemoglobin A1c 5.9 Lactate 0.9 Calcium 8.0 L Nasal Screen MRSA (PCR) Detected H A.calcoaceticus-baumannii cmplx PCR Bacteroides fragilis Jael albicans (PCR) Jael auris (PCR) C. glabrata (PCR) C. krusei (PCR) C. parapsilosis (PCR) C. tropicalis (PCR) SARS-CoV-2 (PCR) C. neoform/gattii (PCR) Enterobacterales (PCR) E. cloacae complex PCR Enterococc faecalis PCR Enterococc faecium PCR E. coli (PCR) H. influenzae (PCR) Influenza A (RT-PCR) Influenza B (RT-PCR) Klebsiella aerogenes (PCR) Klebsiella oxytoca PCR Klebsiella pneumoniae List. monocytogenes PCR N. meningitidis (PCR) Proteus species (PCR) RSV (PCR) Salmonella spp. (PCR) Serratia marcescens PCR Staphylococcus sp PCR Staph aureus (PCR) mecA/C & MREJ Resist Gene mecA/C-Methicil Resis Gene mcr-1 [place] Res Gene PCR Staph epidermidis (PCR) Staph lugdunensis PCR S. maltophilia (PCR) Streptococcus sp PCR Group A Strep (PCR) Strep agalactiae (PCR) Strep pneumoniae (PCR) P. aeruginosa (PCR) Ben/B-Vanco Res Genes blaIMP Car res Gene PCR KPC-Carbap Res Gene PCR blaNDM Car Res Gene PCR OXA-48 Carbapenem Resis Gene (PCR) blaVIM Car Res Gene PCR CTX-M Gene Resistance (PCR) PFSH Social History household members: spouse Tobacco & Substance Use Smoking Status: Never smoker Assessment & Plan Assessment and plan (1) Ureteral calculus, right: Status: Acute Plan: 79 y/o M w/ h/o nephrolithiasis who was noted to have a 6mm right UVJ calculus w/o upstream hydroureteronephrosis in the setting of a Tmax of 104.9, tachycardia and hypotension concerning for an ongoing urinary tract infection on 21 Sep 2024 and was managed w/ a cystoscopy and urgent right ureteral stent placement. His WBC has remained stable at ~10, sCr downtrended to 1.55 from 2.13. He remains on Vanc and Cefepime at the moment. His UCx shows no growth to date, however, his BCx is preliminary positive for GPC. - Will definitive stone management as an outpatient (2) Urinary tract infection: Qualifiers: Hematuria presence: without hematuria Urinary tract infection type: site unspecified Qualified Code(s): N39.0 - Urinary tract infection, site not specified Status: Acute Plan: Appreciate assistance of hospitalist team in managing his UTI and CRISTOFER. - Agree with broad-spectrum antibiotics at this point - Recommend tailoring to oral UCx or BCx directed antibiotics when available - DO NOT REMOVE LYN CATHETER WITHOUT SPEAKING TO [facility] - Urology will continue to follow while an inpatient Time-Based Coding :: [TOTAL MINUTES] spent with patient and on the chart (including review of chart, obtaining history, exam, reviewing outside data, placing orders, documenting exam and treatment plan, and counseling patient) on [DATE]. PROFEE Charge Codes Inpatient or Observation consultation: [id number]
--- NOTE | 2024-09-22 18:31 | PC.NURSE ---
Patient calm and cooperative today. Denies pain, nausea, lightheadedness or dizziness. Endorses feeling just tired today but improved since yesterday. Patient was able to tolerate titration of levophed gtt according to policy to off/paused at 1205, and able to maintain MAP > 65. Dr. Ashford updated. Patient required 2L NC while sleeping to maintain o2 greater than 92%. At approx 1800 noted MAP less than 65, patient sleeping soundly. Patient awakened easily, and denies discomfort or new symptoms. Levophen gtt was restarted (see SEP) at 0.05mcg/kg/min, Dr. Ashford notified and no further orders received, continue to monitor. Bed alarm on for safety, call light within reach.
[2024-09-22] MEDS: MELATONIN 3 MG TABLET 6 MG PO (22:59)
[2024-09-23] VITALS (55 sets, daily range): BP systolic 106–159; BP diastolic 58–84; PULSE 87–117; RESP 17–31; TEMP 36.1–36.7; O2SAT 90–100
--- NOTE | 2024-09-23 01:15 | DI.RAD.S_ITS ---
PROCEDURE: XR CHEST 1V INDICATIONS: short of breath TECHNIQUE: One view of the chest was acquired. COMPARISON: [facility], CR, XR CHEST 1V, 09/21/2024, 16:12. FINDINGS: Surgical changes and devices: Right chest wall port catheter with tip projecting over the SVC Lungs and pleura: Lungs are clear. No pleural effusions or pneumothorax. Mediastinum: Mediastinal contours appear normal. Heart size is normal. Aortic arch is calcified indicating atherosclerosis Bones and chest wall: No suspicious bony lesions. Overlying soft tissues appear unremarkable. IMPRESSION: No acute cardiopulmonary abnormality is seen. Approved by: Mattie Mayen M.D.,Ph.D. on 09/23/2024 at 1:50
--- NOTE | 2024-09-23 01:31 | EKG_ITS ---
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
[2024-09-23 01:40] LABS: Add Manual Diff / Slide Review NO; Basophils Absolute Auto 0 /uL (0-100); Basophils Percent Auto 0.6 % (0-2); Eosinophils Absolute Auto 0 /uL (0-450); Eosinophils Percent Auto 0.5 % (2-4); Hematocrit 22.6 % (41-53); Hemoglobin 7.5 g/dL (13.5-17.5); Lymphocytes Absolute Auto 300 /uL (1100-4500); Lymphocytes Percent Auto 4.9 % (25-40); Mean Corpuscular HGB Conc 33.1 % (30-36); Mean Corpuscular Hemoglobin 29.3 PG (26-34); Mean Corpuscular Volume 88.4 fL (80-100); Monocytes Absolute Auto 400 /uL (0-900); Neutrophils Absolute Auto 5400 /uL (1500-7000); Platelet Count 108 X10^3/uL (150-400); Red Blood Cell Count 2.55 X10^6/uL (4.5-5.9); White Blood Cell Count 6.2 X10^3/uL (4.5-11.0)
[2024-09-23 01:43] LABS: Allen Test for ABG Passed? Positive; Base Excess ABG -0.2 mmol/L (-2-3); Blood Gas Collection Site Right Radial; Delivery System oxymask; HCO3 ABG 24 mmol/L (23-27); Oxygen Saturation ABG 99 % (95-100); PCO2 ABG 36.4 mmHg (35-45); PO2 ABG 118 mmHg (80-100); TCO2 ABG 23 mmol/L (23-27); pH ABG 7.43 (7.35-7.45)
[2024-09-23] MEDS: ALBUTEROL/IPRATROPIUM 3 ML AMPUL INH ×2 (01:53→18:16)
[2024-09-23 01:56] LABS: BUN Creatinine Ratio 23.1 (6-22); Blood Urea Nitrogen 25 mg/dL (9-20); Carbon Dioxide 25 mmol/L (22-32); Chloride 107 mmol/L (98-107); Estimated Glomerular Filt Rate > 60 mL/min (>60); Glucose 216 mg/dL (80-110); HEMOLYSIS < 15 (0-50); Potassium 3.8 mmol/L (3.4-5.1); Sodium 136 mmol/L (137-145)
[2024-09-23 02:05] LABS: NT-proBNP (BNP-Adult 18+) 2570 pg/mL (<450)
[2024-09-23 02:08] LABS: Troponin I < 0.012 ng/mL (0.01-0.034)
[2024-09-23] MEDS: HYDROMORPHONE 0.5 MG INJ IV ×4 (02:21→23:02)
[2024-09-23 05:06] LABS: BUN Creatinine Ratio 22.8 (6-22); Blood Urea Nitrogen 23 mg/dL (9-20); Calcium 8.2 mg/dL (8.4-10.2); Carbon Dioxide 24 mmol/L (22-32); Chloride 107 mmol/L (98-107); Estimated Glomerular Filt Rate > 60 mL/min (>60); Glucose 196 mg/dL (80-110); HEMOLYSIS < 15 (0-50); Potassium 3.7 mmol/L (3.4-5.1); Sodium 137 mmol/L (137-145)
[2024-09-23 05:07] LABS: Add Manual Diff / Slide Review NO; Basophils Absolute Auto 100 /uL (0-100); Eosinophils Absolute Auto 0 /uL (0-450); Eosinophils Percent Auto 0.6 % (2-4); Hematocrit 23.2 % (41-53); Hemoglobin 7.7 g/dL (13.5-17.5); Lymphocytes Absolute Auto 300 /uL (1100-4500); Lymphocytes Percent Auto 5.6 % (25-40); Mean Corpuscular HGB Conc 33.3 % (30-36); Mean Corpuscular Hemoglobin 29.3 PG (26-34); Mean Corpuscular Volume 87.9 fL (80-100); Monocytes Absolute Auto 300 /uL (0-900); Monocytes Percent Auto 4.9 % (3-14); Neutrophils Absolute Auto 5200 /uL (1500-7000); Neutrophils Percent Auto 87.9 % (50-75); Platelet Count 111 X10^3/uL (150-400); Red Blood Cell Count 2.64 X10^6/uL (4.5-5.9); Red Cell Distribution Width 18.2 % (11.6-14.8)
--- NOTE | 2024-09-23 06:39 | PC.NURSE ---
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 wheezes, O2 sats >92% on 2L simple mask, notified and RN received orders for stat CXR,EKG, ABG, labs, duonebs prn and am ECHO, updated of results, orders for type and screen and CBC q4 x2, pt stated his breathing improved after duoneb, prn diludid for R flank pain with effect, repositioned frequently, up to chair for a few hours with 2 assist and walker/gait belt, bed/chair alarms on, call garrison within reach, care continued
--- NOTE | 2024-09-23 07:00 | DI.ECHO.S_ITS ---
[place] [facility] : : [id number] : [place] : : [id number] : : Phone: [phone] Echocardiogram Report + + :Name: ROSE MARIE LAMA Study Date: 09/23/2024 Height: 74 in : :[facility] ReadingLocation: Weight: 178 lb : : Gender: Male BSA: 2.1 m2 : :: 1945 Age: 79 yrs BP: 129/70 mmHg: :Reason For Study: ELEVATED BNP : :Ordering Physician: UVALDO, : :PAIGE HAYWOOD Performed By: Alexandra Cardona : :Referring: PAIGE BAILON MD : + + Interpretation Summary 1) Normal left ventricular thickness and size with low normal systolic function (EF 50-55%). 2) Normal right ventricular size and function. 3) There is mild mitral regurgitation. 4) The right ventricular systolic pressure is estimated to be at least 39 mmHg based on an estimated right atrial pressure of 8 mm Hg. 5) Compared to the Echo done 03/23/2020, LVEF has decreased slightly from 55- 60% to 50-55% on this study. Procedure: A two-dimensional transthoracic echocardiogram with color flow and Doppler was performed. The study quality was technically adequate. Comparison is made with the echocardiogram of 03/23/2020. The patient was in sinus rhythm with heart rates between 91-98 bpm during the exam. Left Ventricle: The left ventricle is normal in size and wall thickness. The ejection fraction is estimated to be 50-55%. There are no focal wall motion abnormalities. Diastolic parameters suggest a relaxation abnormality of the left ventricle, consistent with probable normal filling pressures. Right Ventricle: The right ventricle is normal in size and function. Atria: The left atrial size is normal. Right atrial size is normal. There is no Doppler evidence for an interatrial shunt. Mitral Valve: The mitral valve leaflets appear borderline thickened, but open well. There is mild mitral annular calcification. There is mild mitral regurgitation. Aortic Valve: The aortic valve is trileaflet. The aortic valve opens well. There is no aortic valve stenosis. No aortic regurgitation is present. Tricuspid Valve: The tricuspid valve leaflets are thin and pliable. There is mild tricuspid regurgitation. The right ventricular systolic pressure is estimated to be at least 39 mmHg based on an estimated right atrial pressure of 8 mm Hg. Pulmonic Valve: The pulmonic valve leaflets are thin and pliable; valve motion is normal. There is no pulmonic valvular regurgitation. Great Vessels: The aortic root is normal size. The dimensions of the ascending aorta are normal. The IVC is dilated (diameter is greater than 2.1 cm) yet it collapses greater than 50% with a sniff. This suggests a right atrial pressure of 8 mm Hg. Pericardium/ Pleura There is no pericardial effusion. There is no pleural effusion. MMode/2D Measurements & Calculations LVIDd: 5.4 cm LVOT diam: 2.3 cm LVIDs: 3.9 cm Ao root diam: 3.6 cm FS: 28.0 % asc Aorta Diam: 3.5 cm IVSd: 0.81 cm LVPWd: 0.89 cm LV lynn. diameter/BSA (cm/m^2): 2.6 LV sys. diameter/BSA (cm/m^2): 1.9 LA A2 area: 20.8 cm2 RA long axis: 5.9 cm LA A4 area: 19.0 cm2 RA area: 19.3 cm2 LA length (vol): 5.3 cm RA vol: 53.5 ml LA vol: 63.0 ml RA : 25.9 ml/m2 LA vol index: 30.4 ml/m2 IVC diam: 2.1 cm RVD1 (basal): 3.8 cm TAPSE: 1.7 cm Doppler Measurements & Calculations Ao V2 max: 138.9 cm/sec LVOT Max Piero: 85.8 cm/sec Ao V2 mean: 93.6 cm/sec LV V1 max P.9 mmHg Ao max P.7 mmHg LV V1 VTI: 13.1 cm Ao mean P.9 mmHg LIZZ(I,D): 2.2 cm2 Ao V2 VTI: 24.3 cm LIZZ(V,D): 2.5 cm2 sev ratio: 0.54 LIZZ indexed to BSA (cm^2/m^2): 1.1 MV E max piero: 66.5 cm/sec TR max piero: 277.5 cm/sec MV A max piero: 72.3 cm/sec TR max P.8 mmHg MV E/A: 0.92 PA V2 max: 127.9 cm/sec Med Peak E' Piero: 9.4 cm/sec PA V2 mean: 78.1 cm/sec E/E' med: 7.1 PA mean P.0 mmHg Lat Peak E' Piero: 12.7 cm/sec PA pr(Accel): 44.7 mmHg E/E' lat: 5.2 E/e' average: 6.2 MV dec time: 0.19 sec SV(LVOT): 53.9 ml Reading Physician:10:00 AM
[2024-09-23] MEDS: PANTOPRAZOLE 40 MG VIAL IV (08:08)
[2024-09-23] MEDS: SODIUM CHLORIDE 0.9% FLUSH 10 ML IV ×2 (08:08→20:57)
[2024-09-23] MEDS: CEFEPIME 2 GM in SODIUM CHLORIDE 0.9% 100 ML IV (08:08)
[2024-09-23] MEDS: INSULIN LISPRO 100 UNIT/ML 3ML VIAL SUBCUT ×4 (08:09→20:52)
--- NOTE | 2024-09-23 16:06 | PM.CN.IH.1 ---
History of Present Illness Consult details Date Patient Seen: 09/23/24 Time Patient Seen: 16:07 Chief complaint: Weakness Narrative: 79 y/o M w/ h/o nephrolithiasis who was noted to have a 6mm right UVJ calculus w/o upstream hydroureteronephrosis in the setting of a Tmax of 104.9, tachycardia and hypotension concerning for an ongoing urinary tract infection on 21 Sep 2024 and was managed w/ a cystoscopy and urgent right ureteral stent placement. He admits that he feels better today and is not quite as confused. His WBC has downtrended to 6.0 today, sCr downtrended to 1.01 as well. He remains on Rocephin at the moment after his BCx was notable for Group C Strep. His UCx remains no growth to date. Meds Home Medications and Allergies Home Medications Medication Instructions Recorded Confirmed Type diclofenac 75 mg-misoprostol 200 1 tab PO QDAY ##0 01/19/11 09/21/24 History mcg tablet,immediate,delayed release (Arthrotec) telmisartan 80 1 tab PO QDAY ##0 01/19/11 09/21/24 History mg-hydrochlorothiazide 25 mg tablet (Micardis HCT) folic acid 400 mcg tablet 0.4 mg PO DAILY 09/21/24 09/21/24 History metformin 500 mg tablet 500 mg PO 3XD 09/21/24 09/21/24 History pregabalin 150 mg capsule 150 mg PO BID 09/21/24 09/21/24 History tamsulosin 0.4 mg capsule 0.8 mg PO DAILY 09/21/24 09/21/24 History Allergies Allergy/AdvReac Type Severity Reaction Status Date / Time No Known Drug Allergies Allergy Verified 09/16/20 09:31 Review of Systems Review of Systems Narrative: CONSTITUTIONAL: Denies weight loss, fevers, chills. HEENT: Denies change in vision, hearing. RESP: Denies SOB, cough. CV: Denies palpations, CP. GI: Denies abdominal pain, nausea, vomiting, diarrhea. MSK: Denies myalgia, joint pain. SKIN: Denies rash, pruritus. NEURO: Denies headache, syncope. PSYCH: Denies recent change in mood, anxiety, depression. Exam Vital Signs (past 8 hours): - 09/23/24 08:30 09/23/24 08:31 09/23/24 08:31 Temperature Pulse Rate 101 H 99 H Respiratory Rate 23 21 Blood Pressure 141/77 H Pulse Oximetry 94 95 09/23/24 08:45 09/23/24 08:45 09/23/24 09:00 Temperature Pulse Rate 101 H 100 H Respiratory Rate 26 H 31 H Blood Pressure 150/79 H Pulse Oximetry 95 95 09/23/24 09:00 09/23/24 09:15 09/23/24 09:15 Temperature Pulse Rate 103 H Respiratory Rate 25 H Blood Pressure 132/75 131/80 Pulse Oximetry 94 09/23/24 09:30 09/23/24 09:30 09/23/24 09:45 Temperature Pulse Rate 97 H Respiratory Rate 20 Blood Pressure 146/84 H 145/79 H Pulse Oximetry 95 09/23/24 09:45 09/23/24 10:00 09/23/24 10:01 Temperature Pulse Rate 97 H 109 H Respiratory Rate 21 23 Blood Pressure 136/80 Pulse Oximetry 97 96 09/23/24 10:01 09/23/24 10:15 09/23/24 10:15 Temperature Pulse Rate 106 H 102 H Respiratory Rate 23 22 Blood Pressure 136/76 Pulse Oximetry 97 98 09/23/24 10:44 09/23/24 10:47 09/23/24 10:47 Temperature Pulse Rate 117 H 111 H Respiratory Rate 23 19 Blood Pressure 136/77 Pulse Oximetry 94 09/23/24 11:00 09/23/24 11:11 09/23/24 11:11 Temperature Pulse Rate 109 H 109 H Respiratory Rate 25 H 23 Blood Pressure 124/66 Pulse Oximetry 97 94 09/23/24 11:30 09/23/24 12:00 09/23/24 12:00 Temperature 97.8 F Pulse Rate 100 H 96 H Respiratory Rate Blood Pressure Pulse Oximetry 95 93 Oxygen Delivery Method Room Air Oxygen Flow Rate 2 Narrative Exam Narrative: GEN: Alert and oriented X3. No acute distress. Well-nourished. EYES: PERRLA, EOMI. HENT: Moist mucus membranes, no scleral icterus, normal neck ROM. RESP: Unlabored breathing, equal rise and fall of chest bilaterally, no cyanosis appreciated. CV: No peripheral edema, unremarkable heart rate. ABD: Soft, non-tender, non-distended, no palpable masses. : Lyn secured and draining clear yellow urine. EXT: No edema, clubbing or cyanosis. SKIN: No rashes or lesions. NEURO: No focal neurologic deficits, CN II-XII grossly intact. PSYCH: Cooperative, appropriate mood and affect. Objective Labs 09/23/24 04:45 09/23/24 04:45 Labs: Laboratory Results - last 24 hr 09/23/24 09/23/24 09/23/24 01:25 01:38 04:45 WBC 6.2 6.0 RBC 2.55 L 2.64 L Hgb 7.5 L 7.7 L Hct 22.6 L 23.2 L MCV 88.4 87.9 MCH 29.3 29.3 MCHC 33.1 33.3 RDW 18.0 H 18.2 H Plt Count 108 L 111 L Neut % (Auto) 88.0 H 87.9 H Lymph % (Auto) 4.9 L 5.6 L [place] % (Auto) 6.0 4.9 Eos % (Auto) 0.5 L 0.6 L Baso % (Auto) 0.6 1.0 Neut # (Auto) 5400 5200 Lymph # (Auto) 300 L 300 L [place] # (Auto) 400 300 Eos # (Auto) 0 0 Baso # (Auto) 0 100 ABG Sample Site Right radial ABG pH 7.43 ABG pCO2 36.4 ABG pO2 118 H ABG HCO3 24 ABG Total CO2 23 ABG O2 Saturation 99 ABG Base Excess -0.2 Niall Test Positive O2 Delivery Device oxymask Sodium 136 L 137 Potassium 3.8 3.7 Chloride 107 107 Carbon Dioxide 25 24 BUN 25 H 23 H Creatinine 1.08 1.01 Estimated GFR > 60 > 60 BUN/Creatinine Ratio 23.1 H 22.8 H Glucose 216 H D 196 H Lactate 1.0 Calcium 8.0 L 8.2 L Troponin I < 0.012 NT-Pro-B Natriuret Pep 2570 H Blood Type O Positive Antibody Screen Negative PFSH Social History household members: spouse Tobacco & Substance Use Smoking Status: Never smoker Assessment & Plan Assessment and plan (1) Ureteral calculus, right: Status: Acute Plan: 79 y/o M w/ h/o nephrolithiasis who was noted to have a 6mm right UVJ calculus w/o upstream hydroureteronephrosis in the setting of a Tmax of 104.9, tachycardia and hypotension concerning for an ongoing urinary tract infection on 21 Sep 2024 and was managed w/ a cystoscopy and urgent right ureteral stent placement. His WBC and sCr continue to downtrend. He remains on Ceftriaxone at the moment for management of a positive BCx of Group C Strep. - Will need definitive stone management as an outpatient (2) Urinary tract infection: Qualifiers: Hematuria presence: without hematuria Urinary tract infection type: site unspecified Qualified Code(s): N39.0 - Urinary tract infection, site not specified Status: Acute Plan: Appreciate assistance of hospitalist team in managing his UTI and CRISTOFER. - Antibiotic management per primary team - DO NOT REMOVE LYN CATHETER WITHOUT SPEAKING TO [facility]. WILL BE REMOVED ON MORNING OF DISCHARGE WITH VOIDING TRIAL - Urology will continue to follow while an inpatient Time-Based Coding :: [TOTAL MINUTES] spent with patient and on the chart (including review of chart, obtaining history, exam, reviewing outside data, placing orders, documenting exam and treatment plan, and counseling patient) on [DATE]. PROFEE Charge Codes Inpatient or Observation consultation: [id number]
[2024-09-23] MEDS: cefTRIAXone 2,000 MG in SODIUM CHLORIDE 0.9% 100 ML 200 MG IV (17:11)
--- NOTE | 2024-09-23 17:49 | PC.NURSE ---
Pt BP stable throughout shift, Dr Montague downgraded from ICU status and discontinued tele. Pt anxious about staying in hospital throughout shift and repeatedly expressing desire to leave, Dr Montague notified, see new orders. Pt up to chair with chair alarm and toilet x1 assist with walker and gait belt. Pt complaining of 7/10 chest pain, worse with inspiration that has been intermittently ongoing since beginning chemotherapy treatments, PRN medication administered, Dr Montague notified of chest pain.
--- NOTE | 2024-09-23 19:29 | PM.PN.1 ---
Subjective Subjective Date Patient Seen: 09/23/24 Time Patient Seen: 14:30 Interval history: Chief complaint: Hypotension and symptomatic orthostasis with shock post ureteral procedure History of present illness: 79 y/o with PMH of kidney stones, admitted with obstructing ureteral stone, UTI, sepsis with shock, had IVFs, abx, pressor and urgently taken to OR by urology for stenting. Seen postop in ICU. Asleep after the procedure, on IVFs, off pressor initially. Unable to participate with ROM. Patient was admitted to ICU overnight placed on Levophed and intravenous fluids normal saline at 200 an hour maintaining a an AP of greater than 60-65 without symptomatology. Hospital course: 09/22: Maintained in AP 60-65 overnight with IV fluids at 200 an hour normal saline as well as Levophed. Patient has good urine output Nursing staff was able to titrate Levophed dose down. Patient is not having any significant physical complaints at this time was able to stand with assistance [facility]. Patient had no acute distress heart and lungs are clear Can continue to titrate down Levophed reduce IV fluids to 100 09/23: 1/4 g positive cocci group C Streptococcus on blood culture Weaned off of pressors Will need 10 days antibiotics 5 days of IV high-dose ceftriaxone Review of systems: No dizziness headache diplopia No difficulty swallowing No palpitations No cough or shortness of breath No nausea vomiting diarrhea No paresthesia or paresis Physical exam: Elderly patient alert oriented no acute distress in good spirit HEENT unremarkable Neck no JVD Heart rate and rhythm regular no murmurs appreciated Lungs clear from apices to bases Abdomen nondistended Neurologic nonfocal able to stand and transfer Exam Vital Signs (past 8 hours): - 09/23/24 11:30 09/23/24 12:00 09/23/24 12:00 Temperature 97.8 F Pulse Rate 100 H 96 H Respiratory Rate Blood Pressure Pulse Oximetry 95 93 Oxygen Delivery Method Oxygen Flow Rate 09/23/24 16:00 09/23/24 16:04 09/23/24 16:04 Temperature 98.0 F Pulse Rate 111 H Respiratory Rate Blood Pressure 130/77 Pulse Oximetry 94 Oxygen Delivery Method Oxygen Flow Rate 09/23/24 18:00 09/23/24 18:20 Temperature Pulse Rate 98 H 99 H Respiratory Rate 18 Blood Pressure 135/80 Pulse Oximetry 94 94 Oxygen Delivery Method Room Air Oxygen Flow Rate 0 Oxygen Delivery Method Room Air Oxygen Flow Rate 0 Objective Labs 09/23/24 04:45 09/23/24 04:45 Labs: Laboratory Results - last 24 hr 09/23/24 09/23/24 09/23/24 01:25 01:38 04:45 WBC 6.2 6.0 RBC 2.55 L 2.64 L Hgb 7.5 L 7.7 L Hct 22.6 L 23.2 L MCV 88.4 87.9 MCH 29.3 29.3 MCHC 33.1 33.3 RDW 18.0 H 18.2 H Plt Count 108 L 111 L Neut % (Auto) 88.0 H 87.9 H Lymph % (Auto) 4.9 L 5.6 L [place] % (Auto) 6.0 4.9 Eos % (Auto) 0.5 L 0.6 L Baso % (Auto) 0.6 1.0 Neut # (Auto) 5400 5200 Lymph # (Auto) 300 L 300 L [place] # (Auto) 400 300 Eos # (Auto) 0 0 Baso # (Auto) 0 100 ABG Sample Site Right radial ABG pH 7.43 ABG pCO2 36.4 ABG pO2 118 H ABG HCO3 24 ABG Total CO2 23 ABG O2 Saturation 99 ABG Base Excess -0.2 Niall Test Positive O2 Delivery Device oxymask Sodium 136 L 137 Potassium 3.8 3.7 Chloride 107 107 Carbon Dioxide 25 24 BUN 25 H 23 H Creatinine 1.08 1.01 Estimated GFR > 60 > 60 BUN/Creatinine Ratio 23.1 H 22.8 H Glucose 216 H D 196 H Lactate 1.0 Calcium 8.0 L 8.2 L Troponin I < 0.012 NT-Pro-B Natriuret Pep 2570 H Blood Type O Positive Antibody Screen Negative PFSH Social History household members: spouse Smoking Status: Never smoker Assessment & Plan Assessment & Plan narrative: Obstructing stone - urology for stenting UTI / Septic shock with 1/4 positive blood cultures for group C Streptococcus -10 days of antimicrobial 5 of which is IV followed by 5 days of p.o. CRISTOFER / CKD - IVFs -monitor daily BUN creatinine Anemia - monitored HH - DVT prophylaxis with SCDs Acute Hypoxic Respiratory Failure - postop atelectasis most likely - repeat CXR, r/o aspiration if not improved when awake Time-Based Coding :: Thirty-five minutes spent with patient and on the chart (including review of chart, obtaining history, exam, reviewing outside data, placing orders, documenting exam and treatment plan, and counseling patient) on 09/23/2024 Time-Based Coding :: [TOTAL MINUTES] spent with patient and on the chart (including review of chart, obtaining history, exam, reviewing outside data, placing orders, documenting exam and treatment plan, and counseling patient) on [DATE]. Quality VTE Deep Vein Thrombosis/Pulmonary Embolism Present on Admission: No
[2024-09-23] MEDS: SODIUM CHLORIDE 0.9% 1,000 ML 100 ML IV (19:30)
[2024-09-23] MEDS: LORazepam 1 MG TABLET PO (20:52)
[2024-09-23] MEDS: COLCHICINE 0.6 MG TABLET PO (20:52)
[2024-09-23] MEDS: MELATONIN 3 MG TABLET 6 MG PO (20:56)
[2024-09-24] VITALS (9 sets, daily range): BP systolic 112–150; BP diastolic 64–89; PULSE 80–106; RESP 16–24; TEMP 36–36.3; O2SAT 92–96
[2024-09-24] MEDS: QUETIAPINE 25 MG TABLET PO ×3 (00:07→20:20)
[2024-09-24] MEDS: HALOPERIDOL 5 MG/ML VIAL 2 MG IV ×2 (02:57→07:03)
[2024-09-24] MEDS: SODIUM CHLORIDE 0.9% 1,000 ML 100 ML IV ×2 (06:02→17:29)
--- NOTE | 2024-09-24 07:13 | P.PN_ITS ---
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 Seen postop in ICU. Asleep after the procedure, on IVFs, off pressor initially. Unable to participate with ROM. Patient was admitted to ICU overnight placed on Levophed and intravenous fluids normal saline at 200 an hour maintaining a an AP of greater than 60-65 without symptomatology. Hospital course: 09/22: Maintained in AP 60-65 overnight with IV fluids at 200 an hour normal saline as well as Levophed. Patient has good urine output Nursing staff was able to titrate Levophed dose down. Patient is not having any significant physical complaints at this time was able to stand with assistance and transfer to commode without orthostasis. Patient had no acute distress heart and lungs are clear Can continue to titrate down Levophed reduce IV fluids to 100 09/23: 1/4 g positive cocci group C Streptococcus on blood culture Weaned off of pressors Will need 10 days antibiotics 5 days of IV high-dose ceftriaxone 09/24: Confused and agitated overnight discussed with who mentioned that this sometimes happens in this manner when his dose of Lyrica and Cymbalta is missed. These were not continued on the home med rec and were resumed today. We will observe the effect No fevers or chills overnight We will discuss discharge planning may need acute rehab prior to going home Review of systems: No dizziness headache diplopia No difficulty swallowing No palpitations No cough or shortness of breath No nausea vomiting diarrhea No paresthesia or paresis Physical exam: Elderly patient alert but confused in wanting to get into bed when he is already in bed t HEENT unremarkable Neck no JVD Heart rate and rhythm regular no murmurs appreciated Lungs clear from apices to bases Abdomen nondistended Neurologic nonfocal but confused Laboratory and imaging: See today's laboratory reports below at end of the note Assessment and plan: Obstructing stone -status post stenting with return of flow and effective source control UTI / Septic shock with 1/4 positive blood cultures for group C Streptococcus -10 days of antimicrobial 5 of which is IV followed by 5 days of p.o. CRISTOFER / CKD back to baseline - IVFs discontinue -monitor daily BUN creatinine Anemia - monitored HH - DVT prophylaxis with SCDs Acute Hypoxic Respiratory Failure in the setting of sepsis - postop atelectasis and sepsis most likely - repeat CXR, negative for aspiration Time-Based Coding :: Thirty-five minutes spent with patient and on the chart (including review of chart, obtaining history, exam, reviewing outside data, placing orders, documenting exam and treatment plan, and counseling patient) on 09/24/2024 Exam Vital Signs (past 8 hours): Oxygen Delivery Method Room Air Oxygen Flow Rate 0 Objective Labs 09/24/24 09:00 09/24/24 09:00 Labs: Laboratory Results - last 24 hr 09/23/24 20:15 ABG Sample Site Cancelled ABG pH Cancelled ABG pCO2 Cancelled ABG pO2 Cancelled ABG HCO3 Cancelled ABG Total CO2 Cancelled ABG O2 Saturation Cancelled ABG Base Excess Cancelled Niall Test Cancelled Respiration Rate Cancelled O2 Delivery Device Cancelled Oxygen Liter Flow Cancelled Mode of Support Cancelled FiO2 % Cancelled Tidal Volume Cancelled Pressure Support Cancelled PEEP or CPAP [facility] Social History household members: spouse Smoking Status: Never smoker Assessment & Plan Time-Based Coding :: [TOTAL MINUTES] spent with patient and on the chart (including review of chart, obtaining history, exam, reviewing outside data, placing orders, documenting exam and treatment plan, and counseling patient) on [DATE]. Quality VTE Deep Vein Thrombosis/Pulmonary Embolism Present on Admission: No
--- NOTE | 2024-09-24 07:20 | PC.NURSE ---
At start of shift, pt orients to location ([place], not aware this is a hospital), self, birthday, age, and year. Anxiously repeating that he would like to get outta here and get home PO Ativan given at bedtime per pt/spouses agreement. Woke ~2330 anxious and agitated, attempting to get out of bed, and shouting at staff who gently redirect him to stay in bed. [facility] in an effort to settle him, but these only satisfied him for 5-10 min. Provider Anitra Álvarez made aware, and orders for Seroquel and Haldol given. After many attempts to redirect pt, and increasing agitation, with pt reaching out to grab, swat and push staff, Haldol was administered per SEP ~0300. Pt was able to sleep intermittently until ~ 0700, when he again became agitated as before, and again was medicated with Haldol. Provider Eddi made aware and at the pt's bedside speaking with pt and family, see new orders.
[2024-09-24] MEDS: INSULIN LISPRO 100 UNIT/ML 3ML VIAL SUBCUT ×4 (08:44→21:03)
[2024-09-24] MEDS: COLCHICINE 0.6 MG TABLET PO ×2 (08:44→20:20)
[2024-09-24] MEDS: PREGABALIN 75 MG CAPSULE 150 MG PO ×2 (08:44→20:20)
[2024-09-24] MEDS: PANTOPRAZOLE 40 MG VIAL IV (08:44)
[2024-09-24] MEDS: DULOXETINE 30 MG CAPSULE PO (08:44)
[2024-09-24] MEDS: SODIUM CHLORIDE 0.9% FLUSH 10 ML IV ×2 (08:44→20:21)
[2024-09-24] MEDS: ALBUTEROL/IPRATROPIUM 3 ML AMPUL INH (09:02)
[2024-09-24 09:15] LABS: Hematocrit 26.7 % (41-53); Mean Corpuscular HGB Conc 33.6 % (30-36); Mean Corpuscular Hemoglobin 29.2 PG (26-34); Mean Corpuscular Volume 86.8 fL (80-100); Platelet Count 124 X10^3/uL (150-400); Red Blood Cell Count 3.07 X10^6/uL (4.5-5.9); Red Cell Distribution Width 17.8 % (11.6-14.8); White Blood Cell Count 4.3 X10^3/uL (4.5-11.0)
[2024-09-24 09:34] LABS: BUN Creatinine Ratio 22.5 (6-22); Blood Urea Nitrogen 18 mg/dL (9-20); Carbon Dioxide 27 mmol/L (22-32); Chloride 101 mmol/L (98-107); Estimated Glomerular Filt Rate > 60 mL/min (>60); Glucose 204 mg/dL (80-110); HEMOLYSIS < 15 (0-50); Potassium 3.7 mmol/L (3.4-5.1); Sodium 136 mmol/L (137-145)
--- NOTE | 2024-09-24 12:48 | PC.NURSE ---
Day shift: Pt forgetful, confused, A&O only to self and spouse Maria G at bedside. Pt repeatedly stating need to urinate, reoriented to urinary catheter. Placement, tubing, and patency of urinary catheter assessed without issue. Pt up to BSC SBA w/ FWW to have BM. Back to bed. Pt stating, I need out of here. Pt assisted to stand at bedside. Up to chair, pt continues to state need to urinate, reoriented to urinary catheter several times. Pt back to bed w/ assist. Appears to rest comfortably, call light within reach, bed alarm active, curtain open and pt room in close proximity to nurse's station. Care ongoing.
--- NOTE | 2024-09-24 14:02 | PT-IP ANOTE ---
Physical Therapy order received and chart reviewed. Spoke with his nurse. Pt is sleeping at this time after being unable to sleep last night and agitated earlier today. Will check back for PT eval when pt awake.
--- NOTE | 2024-09-24 17:27 | PM.CN.IH.1 ---
History of Present Illness Consult details Date Patient Seen: 09/24/24 Time Patient Seen: 17:27 Chief complaint: Weakness Narrative: 79 y/o M w/ h/o nephrolithiasis who was noted to have a 6mm right UVJ calculus w/o upstream hydroureteronephrosis in the setting of a Tmax of 104.9, tachycardia and hypotension concerning for an ongoing urinary tract infection on 21 Sep 2024 and was managed w/ a cystoscopy and urgent right ureteral stent placement. He admits that he feels better today and is not quite as confused. His WBC has downtrended to 4.3 today, sCr downtrended to 0.8 as well. He remains on Rocephin at the moment after his BCx was notable for Group C Strep. His UCx remains no growth to date. Meds Home Medications and Allergies Home Medications Medication Instructions Recorded Confirmed Type diclofenac 75 mg-misoprostol 200 1 tab PO QDAY ##0 01/19/11 09/21/24 History mcg tablet,immediate,delayed release (Arthrotec) telmisartan 80 1 tab PO QDAY ##0 01/19/11 09/21/24 History mg-hydrochlorothiazide 25 mg tablet (Micardis HCT) folic acid 400 mcg tablet 0.4 mg PO DAILY 09/21/24 09/21/24 History metformin 500 mg tablet 500 mg PO 3XD 09/21/24 09/21/24 History pregabalin 150 mg capsule 150 mg PO BID 09/21/24 09/21/24 History tamsulosin 0.4 mg capsule 0.8 mg PO DAILY 09/21/24 09/21/24 History duloxetine 30 mg capsule,delayed 30 mg PO ONCE PM 09/24/24 09/24/24 History release Allergies Allergy/AdvReac Type Severity Reaction Status Date / Time No Known Drug Allergies Allergy Verified 09/16/20 09:31 Review of Systems Review of Systems Narrative: CONSTITUTIONAL: Denies weight loss, fevers, chills. HEENT: Denies change in vision, hearing. RESP: Denies SOB, cough. CV: Denies palpations, CP. GI: Denies abdominal pain, nausea, vomiting, diarrhea. MSK: Denies myalgia, joint pain. SKIN: Denies rash, pruritus. NEURO: Denies headache, syncope. PSYCH: Denies recent change in mood, anxiety, depression. Exam Vital Signs (past 8 hours): - 09/24/24 11:51 09/24/24 15:00 Temperature 96.8 F L 97.3 F L Pulse Rate 105 H 102 H Respiratory Rate 18 16 Blood Pressure 150/87 H 150/89 H Pulse Oximetry 95 92 Oxygen Flow Rate 0 0 Oxygen Delivery Method Room Air Oxygen Flow Rate 0 Narrative Exam Narrative: GEN: Alert and oriented X3. No acute distress. Well-nourished. EYES: PERRLA, EOMI. HENT: Moist mucus membranes, no scleral icterus, normal neck ROM. RESP: Unlabored breathing, equal rise and fall of chest bilaterally, no cyanosis appreciated. CV: No peripheral edema, unremarkable heart rate. ABD: Soft, non-tender, non-distended, no palpable masses. : Lyn secured and draining clear yellow urine. EXT: No edema, clubbing or cyanosis. SKIN: No rashes or lesions. NEURO: No focal neurologic deficits, CN II-XII grossly intact. PSYCH: Cooperative, appropriate mood and affect. Objective Labs 09/24/24 09:00 09/24/24 09:00 Labs: Laboratory Results - last 24 hr 09/23/24 09/24/24 20:15 09:00 WBC 4.3 L RBC 3.07 L Hgb 9.0 L Hct 26.7 L MCV 86.8 MCH 29.2 MCHC 33.6 RDW 17.8 H Plt Count 124 L ABG Sample Site Cancelled ABG pH Cancelled ABG pCO2 Cancelled ABG pO2 Cancelled ABG HCO3 Cancelled ABG Total CO2 Cancelled ABG O2 Saturation Cancelled ABG Base Excess Cancelled Niall Test Cancelled Respiration Rate Cancelled O2 Delivery Device Cancelled Oxygen Liter Flow Cancelled Mode of Support Cancelled FiO2 % Cancelled Tidal Volume Cancelled Pressure Support Cancelled PEEP or CPAP Cancelled Sodium 136 L Potassium 3.7 Chloride 101 Carbon Dioxide 27 BUN 18 Creatinine 0.80 Estimated GFR > 60 BUN/Creatinine Ratio 22.5 H Glucose 204 H Calcium 9.0 PFSH Social History household members: spouse Tobacco & Substance Use Smoking Status: Never smoker Assessment & Plan Assessment and plan (1) Ureteral calculus, right: Status: Acute Plan: 79 y/o M w/ h/o nephrolithiasis who was noted to have a 6mm right UVJ calculus w/o upstream hydroureteronephrosis in the setting of a Tmax of 104.9, tachycardia and hypotension concerning for an ongoing urinary tract infection on 21 Sep 2024 and was managed w/ a cystoscopy and urgent right ureteral stent placement. His WBC and sCr continue to downtrend. He remains on Ceftriaxone at the moment for management of a positive BCx of Group C Strep. - Will require definitive stone management as an outpatient. (2) Urinary tract infection: Qualifiers: Hematuria presence: without hematuria Urinary tract infection type: site unspecified Qualified Code(s): N39.0 - Urinary tract infection, site not specified Status: Acute Plan: Appreciate assistance of hospitalist team in managing his UTI and CRISTOFER. - Antibiotic management per primary team - DO NOT REMOVE LYN CATHETER WITHOUT SPEAKING TO [facility]. WILL BE REMOVED ON MORNING OF DISCHARGE WITH VOIDING TRIAL - Urology will continue to follow while an inpatient Time-Based Coding :: [TOTAL MINUTES] spent with patient and on the chart (including review of chart, obtaining history, exam, reviewing outside data, placing orders, documenting exam and treatment plan, and counseling patient) on [DATE]. PROFEE Charge Codes Inpatient or Observation consultation: [id number]
[2024-09-24] MEDS: cefTRIAXone 2,000 MG in SODIUM CHLORIDE 0.9% 100 ML 200 MG IV (17:28)
[2024-09-24] MEDS: MELATONIN 3 MG TABLET 6 MG PO (20:20)
[2024-09-24] MEDS: INSULIN GLARGINE 100 UNIT/ML 3ML PEN 10 UNIT SUBCUT (21:02)
[2024-09-25] VITALS (24 sets, daily range): BP systolic 90–163; BP diastolic 55–90; PULSE 88–122; RESP 14–20; TEMP 35.9–36.4; O2SAT 84–100
--- NOTE | 2024-09-25 09:02 | PM.PN.1 ---
Subjective Subjective Date Patient Seen: 09/25/24 Time Patient Seen: 09:02 Interval history: Chief complaint: Hypotension and symptomatic orthostasis with shock post ureteral procedure History of present illness: 79 y/o with PMH of kidney stones, recent treatment with chemotherapy and chest radiation for neoplasm 6 weeks prior to admission, admitted with obstructing ureteral stone, UTI, sepsis with shock, had IVFs, abx, pressor and urgently taken to OR by urology for stenting. Seen postop in ICU. Asleep after the procedure, on IVFs, off pressor initially. Unable to participate with ROM. Patient was admitted to ICU overnight placed on Levophed and intravenous fluids normal saline at 200 an hour maintaining a an AP of greater than 60-65 without symptomatology. Hospital course: 09/22: Maintained in AP 60-65 overnight with IV fluids at 200 an hour normal saline as well as Levophed. Patient has good urine output Nursing staff was able to titrate Levophed dose down. Patient is not having any significant physical complaints at this time was able to stand with assistance and transfer to commode without orthostasis. Patient had no acute distress heart and lungs are clear Can continue to titrate down Levophed reduce IV fluids to 100 09/23: 1/4 g positive cocci group C Streptococcus on blood culture Weaned off of pressors Will need 10 days antibiotics 5 days of IV high-dose ceftriaxone 09/24: Confused and agitated overnight discussed with who mentioned that this sometimes happens in this manner when his dose of Lyrica and Cymbalta is missed. These were not continued on the home med rec and were resumed today. We will observe the effect No fevers or chills overnight We will discuss discharge planning may need acute rehab prior to going home 09/25: Confusion improved after resume Lyrica and Cymbalta Review of systems: No dizziness headache diplopia No difficulty swallowing No palpitations No cough or shortness of breath No nausea vomiting diarrhea No paresthesia or paresis Physical exam: Elderly patient alert but confused in wanting to get into bed when he is already in bed t HEENT unremarkable Neck no JVD Heart rate and rhythm regular no murmurs appreciated Lungs clear from apices to bases Abdomen nondistended Neurologic nonfocal but confused Laboratory and imaging: See today's laboratory reports below at end of the note Assessment and plan: Obstructing stone -status post stenting with return of flow and effective source control UTI / Septic shock with 1/4 positive blood cultures for group C Streptococcus -10 days of antimicrobial 5 of which is IV followed by 5 days of p.o. -we will continue ceftriaxone through the weekend intravenous CRISTOFER / CKD back to baseline - IVFs discontinue -monitor daily BUN creatinine Anemia - monitored HH - DVT prophylaxis with SCDs Acute Hypoxic Respiratory Failure in the setting of sepsis - postop atelectasis and sepsis most likely - repeat CXR, negative for aspiration Time-Based Coding :: Thirty-five minutes spent with patient and on the chart (including review of chart, obtaining history, exam, reviewing outside data, placing orders, documenting exam and treatment plan, and counseling patient) on 09/25/2024 Exam Vital Signs (past 8 hours): - 09/25/24 03:00 09/25/24 08:11 Temperature 97.2 F L Pulse Rate 99 H Respiratory Rate 16 Blood Pressure 154/72 H Pulse Oximetry 94 Oxygen Delivery Method Room Air Oxygen Flow Rate 0 Oxygen Delivery Method Room Air Oxygen Flow Rate 0 Objective Labs 09/24/24 09:00 09/24/24 09:00 Labs: Laboratory Results - last 24 hr 09/24/24 09:00 WBC 4.3 L RBC 3.07 L Hgb 9.0 L Hct 26.7 L MCV 86.8 MCH 29.2 MCHC 33.6 RDW 17.8 H Plt Count 124 L Sodium 136 L Potassium 3.7 Chloride 101 Carbon Dioxide 27 BUN 18 Creatinine 0.80 Estimated GFR > 60 BUN/Creatinine Ratio 22.5 H Glucose 204 H Calcium 9.0 PFSH Social History household members: spouse Smoking Status: Never smoker Assessment & Plan Time-Based Coding :: [TOTAL MINUTES] spent with patient and on the chart (including review of chart, obtaining history, exam, reviewing outside data, placing orders, documenting exam and treatment plan, and counseling patient) on [DATE]. Quality VTE Deep Vein Thrombosis/Pulmonary Embolism Present on Admission: No
[2024-09-25] MEDS: DULOXETINE 30 MG CAPSULE PO (09:03)
[2024-09-25] MEDS: SODIUM CHLORIDE 0.9% FLUSH 10 ML IV ×2 (09:03→21:37)
[2024-09-25] MEDS: QUETIAPINE 25 MG TABLET PO ×2 (09:03→21:34)
[2024-09-25] MEDS: PANTOPRAZOLE 40 MG VIAL IV (09:03)
[2024-09-25] MEDS: COLCHICINE 0.6 MG TABLET PO ×2 (09:03→21:34)
[2024-09-25] MEDS: PREGABALIN 75 MG CAPSULE 150 MG PO ×2 (09:03→21:34)
--- NOTE | 2024-09-25 09:30 | PT.IIE ---
Current Diagnoses Sepsis, unspecified organism (09/21/24) Acute kidney failure, unspecified (09/21/24) Calculus of ureter (09/21/24) Urinary tract infection, site not specified (09/21/24) Severe sepsis with septic shock (09/21/24) Surgery Performed Operation Date: 09/21/24 19:45 Actual Procedures p Cystoscopy w/ Ureteral Procedure Placement of Ureteral Stent(Right) - Yrn Maradiaga, DO Physical Therapy Inpatient Evaluation/Re-Eval M1 PT/OT-IP Prior Functional Status Start: 09/24/24 13:48 Freq: NEEDED Status: Active Protocol: Document 09/25/24 09:30 AB (Rec: 09/25/24 13:56 AB [id number]) Medical Review Prior Functional Status Medical History Reviewed Yes Communication able to make needs known; RED DEVIL Mobility and Gait spouse provided some of pt's PLOF and home setup: stated that pt was needing more assistance in the last week but prior to that, pt was modified independent with all mobilities and ambulation without AD indoors but furniture cruises or occasionally uses a SPC; uses FWW for outdoor mobility or holds on to a person for support Social History Household Members spouse Living Arrangements House Number of Floors (Floors) One Floor Number of Stairs To Enter/Railing? 4 steps B rails to enter Home Environment Walk in Shower,Built-In Shower Seat Home Equipment Front Wheel Walker,Straight Cane,Hand Held Shower,Grab Bars Near Toilet,Grab Bars In Shower Additional Social History Comment pt has a walk in tub shower M2 PT-IP Current Condition Start: 09/24/24 13:48 Freq: NEEDED Status: Active Protocol: Document 09/25/24 09:30 AB (Rec: 09/25/24 13:56 AB [id number]) Physical Therapy Current Condition Current Condition Evaluation Date 09/25/24 Treatment Diagnosis septic shock; UIT; difficulty in walking Onset Date 09/21/24 M3 PT-IP Subjective Start: 09/24/24 13:48 Freq: NEEDED Status: Active Protocol: Document 09/25/24 09:30 AB (Rec: 09/25/24 13:56 AB [id number]) Subjective Physical Therapy Visit Type Type Initial Evaluation Visit Start Time 09:30 Visit Stop Time 10:15 Number of RECOIL SPRING WINDER Visits 0 Physical Therapy Visit Comments Patient Comments agreed to do PT M4 PT-IP Mobility and Gait Start: 09/24/24 13:48 Freq: NEEDED Status: Active Protocol: Document 09/25/24 09:30 AB (Rec: 09/25/24 13:56 AB [id number]) PT-Bed Mobility Assessment Supine to Sit Supine to Sit Maximum Assistance,1 Person Assistance,Head of Bed Elevated,Bedrails PT-Transfer Assessment Sit to and From Stand Sit to and from Stand Maximum Assistance,1 Person Assistance,Use of Upper Extremities Equipment Transfer Assistive Device Gait Belt,Front Wheeled Walker Orthotic/Prosthetic Devices or Brace: No Transfers Transfer Destination Chair Transfer Technique Stand Step Pivot Transfer Ability Level of Assist Maximum Assistance,1 Person Assistance,2 Person Assistance ,Use of Upper Extremities Comments Mobility Comments pt in bed. spouse initially in room but did not stay for the full PT session. obtained PLOF and home set up. pt is RED DEVIL and is slow to respond to questions and instructions. BP: 150/73. pt completed supine to sit max A and max cues. HOB elevated and pt used bed rail to assist . pt required repeated cues to continue with task. able to sit on EOB min A and cues not to lean backwards. sit to stand from EOB max A and max cues. instructed to walk and required max A x 1-2 and max cues using FWW with (+) R knee buckling. assisted pt to sit on EOB. positioned chair closer to pt. sit to stand max A and cues and step transfer to chair using fWW max Ax 1-2 and max cues. positioned pt on the chair. call light and table placed within reach. informed pt and spouse regarding SNF rehab recommendation at this time. Gait Assessment Gait Gait Assistance Required: Maximum Assistance,1 Person Assist,2 Person Assist Distance (Feet) 2 Able to Maintain Weight Bearing Status Yes During Gait Assistive Devices Assistive Device Gait Belt,Front Wheeled Walker Orthotic/Prosthetic Devices or Brace: No Gait Deviations General Gait Pattern Decreased Stride Length, Decreased Feet Clearance,Step- to Gait Factors Limiting Gait Function Factors Limiting Gait Function Decreased Activity Tolerance, Decreased Strength,Difficulty Following Directions,Limited Range of Motion,Poor Balance, Poor Safety Awareness PT-Balance Assessment Sitting Balance and Reactions Static Sitting Balance Ability Fair Dynamic Sitting Balance Ability Fair Standing Balance and Reactions Static Standing Balance Ability Poor Dynamic Standing Balance Ability Poor Device Used FWW M5 PT-IP Objective Assessments Start: 09/24/24 13:48 Freq: NEEDED Status: Active Protocol: Document 09/25/24 09:30 AB (Rec: 09/25/24 13:56 AB [id number]) Orientation Orientation/Cognition Level of Alertness Alert Orientation Name Language Function Ability No Deficits Noted,Hard of Hearing Safety Awareness Decreased Safety Awareness Memory Description Short Term Impaired Gross Range of Motion Lower Extremity ROM Assessment Within Functional Limits Strength Lower Extremity Strength Assessment Within Functional Limits Muscle Tone Muscle Tone WNL Yes M6 PT-IP Treatment Start: 09/24/24 13:48 Freq: NEEDED Status: Active Protocol: Document 09/25/24 09:30 AB (Rec: 09/25/24 13:56 AB [id number]) Physical Therapy Treatment Education Education Provided Safety M7 PT-IP Assessment and Plan Start: 09/24/24 13:48 Freq: NEEDED Status: Active Protocol: Document 09/25/24 09:30 AB (Rec: 09/25/24 13:56 AB [id number]) PT Summary Assessment and Plan Potential Rehabilitation Potential Fair Status of Condition at Evaluation Evolving Summary Impairments Pain,ROM,Strength,Balance, Coordination,Sensation,Tone, Cognition,Bed Mobility, Transfers,Gait,Activity Tolerance Assessment Summary pt is a 79 y/o M who is admitted for septic shock, UTI . pt also has dx of lung CA with chemo tx. pt requiring max A x 1-2 with transfers using fWW. attempted to ambulate but only able to complete ~ 2 ft using FWW max A x 1-2 with (+) R knee buckling. pt presents with overall weakness and unable to tolerate much activity. pt will require 24/7 assist needing 2 person assist at this time and will benefit from SNF rehab. will continue to assess progress. Goals Bed Mobility Goal Minimal Assistance Transfer Goal Minimal Assistance,Front Wheeled Walker Gait Goal Minimal Assistance,Front Wheel Walker Gait Distance 50 Other Goals improve bed mobility, transfers, ambulation using LRAD 150 ft SBA up/down 4 steps B rails SBA Days to Meet Goals 10 Frequency of Treatment Frequency Of Treatment Once a Day Treatment Plan Physical Therapy Treatment Plan Bed Mobility Training,Transfer Training,Gait Training, Therapeutic Exercise,Balance Retraining,Discharge Planning, Hot or Cold Pack,Neuromuscular Re-ed,Coordination Retraining ,Manual Therapy Precautions Other Precautions falls Recommendations To Nursing Amount of Assist Needed 2 Person Assist Discharge Recommendations PT Discharge Recommendations SNF Rehab Transportation Needs at Discharge Wheelchair/Cabulance - PT assist 2
[2024-09-25] MEDS: INSULIN LISPRO 100 UNIT/ML 3ML VIAL SUBCUT ×2 (13:52→17:43)
--- NOTE | 2024-09-25 14:30 | CM.DPC ---
DCP SNF Planning: Per MD, pt making progress but resuming some home meds and will get 5 total days of IV meds and then can switch to PO and remains somewhat weak and encephalopathic today and likely need another couple days in the hospital. Per PT, pt currently below baseline and 2PA and recommending SNF. SW met bedside with pt and spouse, pt sleeping soundly and still somewhat confused, and explained role and discussed current SNF recommendation. Spouse denies that they have any hx of SNF and SW provided the SNF Choice list with highlighted [employer] contracted facilities. Spouse preference is maybe 1) [facility] 2) [facility] as it is close to pt's Onc and providers 3) maybe [facility] as they have friends up there. SW explained need for [employer] auth and spouse agreeable with referrals and then see how pt progresses with PT/OT. SW made initial referral to [facility] and [facility] and left msg for [facility]. PASRR needed if SNF. Plan: SW to follow for SNF vs Home with HH pending progress and to follow for [facility] and [facility] review to determine if one can accept and start [employer] auth. Tiffanie Mtz, INDUSTRIAL CUSTODIAN
[2024-09-25] MEDS: cefTRIAXone 2,000 MG in SODIUM CHLORIDE 0.9% 100 ML 200 MG IV (17:43)
[2024-09-25] MEDS: MELATONIN 3 MG TABLET 6 MG PO (21:34)
[2024-09-25] MEDS: INSULIN GLARGINE 100 UNIT/ML 3ML PEN 12 UNIT SUBCUT (21:36)
[2024-09-26] VITALS (15 sets, daily range): BP systolic 90–146; BP diastolic 55–80; PULSE 85–112; RESP 15–22; TEMP 36.2–36.6; O2SAT 88–96
[2024-09-26 05:14] LABS: Add Manual Diff / Slide Review NO; Basophils Absolute Auto 0 /uL (0-100); Basophils Percent Auto 0.5 % (0-2); Eosinophils Absolute Auto 100 /uL (0-450); Eosinophils Percent Auto 1.7 % (2-4); Hematocrit 26.1 % (41-53); Hemoglobin 8.8 g/dL (13.5-17.5); Lymphocytes Absolute Auto 700 /uL (1100-4500); Lymphocytes Percent Auto 15.2 % (25-40); Mean Corpuscular HGB Conc 33.8 % (30-36); Mean Corpuscular Hemoglobin 29.6 PG (26-34); Mean Corpuscular Volume 87.4 fL (80-100); Monocytes Absolute Auto 400 /uL (0-900); Monocytes Percent Auto 8.3 % (3-14); Neutrophils Absolute Auto 3500 /uL (1500-7000); Neutrophils Percent Auto 74.3 % (50-75); Platelet Count 118 X10^3/uL (150-400); Red Blood Cell Count 2.99 X10^6/uL (4.5-5.9); Red Cell Distribution Width 18.3 % (11.6-14.8); White Blood Cell Count 4.7 X10^3/uL (4.5-11.0)
[2024-09-26 05:24] LABS: Alanine Aminotransferase 27 IU/L (<50); Albumin 2.8 g/dL (3.5-5.0); Albumin Globulin Ratio 0.9 (1.0-2.8); Alkaline Phosphatase 84 U/L (38-126); Aspartate Aminotransferase 32 IU/L (17-59); BUN Creatinine Ratio 14.3 (6-22); Bilirubin Total 0.7 mg/dL (0.2-1.3); Blood Urea Nitrogen 12 mg/dL (9-20); Calcium 8.4 mg/dL (8.4-10.2); Carbon Dioxide 28 mmol/L (22-32); Chloride 102 mmol/L (98-107); Estimated Glomerular Filt Rate > 60 mL/min (>60); Globulin 3.1 g/dL (1.7-4.1); Glucose 158 mg/dL (80-110); HEMOLYSIS < 15 (0-50); Sodium 137 mmol/L (137-145); Total Protein 5.9 g/dL (6.3-8.2)
[2024-09-26] MEDS: POTASSIUM CHLORIDE 20 MEQ TAB 40 MEQ PO ×2 (08:33→13:18)
[2024-09-26] MEDS: INSULIN LISPRO 100 UNIT/ML 3ML VIAL SUBCUT ×4 (08:33→20:36)
[2024-09-26] MEDS: SODIUM CHLORIDE 0.9% FLUSH 10 ML IV ×2 (08:34→20:37)
[2024-09-26] MEDS: PANTOPRAZOLE 40 MG VIAL IV (08:34)
[2024-09-26] MEDS: DULOXETINE 30 MG CAPSULE PO (08:34)
[2024-09-26] MEDS: QUETIAPINE 25 MG TABLET PO (08:34)
[2024-09-26] MEDS: PREGABALIN 75 MG CAPSULE 150 MG PO ×2 (08:34→20:35)
[2024-09-26] MEDS: COLCHICINE 0.6 MG TABLET PO ×2 (08:34→20:34)
--- NOTE | 2024-09-26 09:34 | PM.PN.IH.1 ---
Subjective Subjective Date Patient Seen: 09/26/24 Time Patient Seen: 07:50 Interval history: Chief complaint: Hypotension and symptomatic orthostasis with shock post ureteral procedure History of present illness: 79 y/o with PMH of kidney stones, recent treatment with chemotherapy and chest radiation for neoplasm 6 weeks prior to admission, admitted with obstructing ureteral stone, UTI, sepsis with shock, had IVFs, abx, pressor and urgently taken to OR by urology for stenting. Seen postop in ICU. Asleep after the procedure, on IVFs, off pressor initially. Unable to participate with ROM. Patient was admitted to ICU overnight placed on Levophed and intravenous fluids normal saline at 200 an hour maintaining a an AP of greater than 60-65 without symptomatology. Hospital course: 09/22: Maintained in AP 60-65 overnight with IV fluids at 200 an hour normal saline as well as Levophed. Patient has good urine output Nursing staff was able to titrate Levophed dose down. Patient is not having any significant physical complaints at this time was able to stand with assistance and transfer to commode without orthostasis. Patient had no acute distress heart and lungs are clear Can continue to titrate down Levophed reduce IV fluids to 100 09/23: 1/4 g positive cocci group C Streptococcus on blood culture Weaned off of pressors Will need 10 days antibiotics 5 days of IV high-dose ceftriaxone 09/24: Confused and agitated overnight discussed with who mentioned that this sometimes happens in this manner when his dose of Lyrica and Cymbalta is missed. These were not continued on the home med rec and were resumed today. We will observe the effect No fevers or chills overnight We will discuss discharge planning may need acute rehab prior to going home 09/25: Confusion improved after resume Lyrica and Cymbalta 09/26: Mildly confused, feeling better. No complaints, persistently weak. SNF planned Saturday. Exam Vital Signs (past 8 hours): - 09/26/24 04:00 09/26/24 07:00 09/26/24 08:00 Temperature 97.4 F L 97.2 F L Pulse Rate 90 101 H Respiratory Rate 18 22 Blood Pressure 114/57 L 146/80 H Pulse Oximetry 92 94 Oxygen Delivery Method Room Air Oxygen Flow Rate 0 Oxygen Delivery Method Room Air Oxygen Flow Rate 0 Narrative Exam Narrative: Elderly patient alert but confused in wanting to get into bed when he is already in bed t HEENT unremarkable Neck no JVD Heart rate and rhythm regular no murmurs appreciated Lungs clear from apices to bases Abdomen nondistended Neurologic nonfocal but confused Objective Imaging Abdomen-pelvis CT 09/21/2024:: Radiologist's impression: Several nonobstructing bilateral intrarenal calculi as described. Right-sided bladder wall calculus versus UVJ calculus without causing proximal obstruction. This may also have been recently passed. This was not previously present. Echo 09/23/2024:: Radiologist's impression: 1) Normal left ventricular thickness and size with low normal systolic function (EF 50-55%). 2) Normal right ventricular size and function. 3) There is mild mitral regurgitation. 4) The right ventricular systolic pressure is estimated to be at least 39 mmHg based on an estimated right atrial pressure of 8 mm Hg. 5) Compared to the Echo done 03/23/2020, LVEF has decreased slightly from 55- 60% to 50-55% on this study. Labs 09/26/24 04:09 09/26/24 04:09 Labs: Laboratory Results - last 24 hr 09/26/24 04:09 WBC 4.7 RBC 2.99 L Hgb 8.8 L Hct 26.1 L MCV 87.4 MCH 29.6 MCHC 33.8 RDW 18.3 H Plt Count 118 L Neut % (Auto) 74.3 Lymph % (Auto) 15.2 L [place] % (Auto) 8.3 Eos % (Auto) 1.7 L Baso % (Auto) 0.5 Neut # (Auto) 3500 Lymph # (Auto) 700 L [place] # (Auto) 400 Eos # (Auto) 100 Baso # (Auto) 0 Sodium 137 Potassium 3.0 L Chloride 102 Carbon Dioxide 28 BUN 12 Creatinine 0.84 Estimated GFR > 60 BUN/Creatinine Ratio 14.3 Glucose 158 H Calcium 8.4 Total Bilirubin 0.7 AST 32 ALT 27 Alkaline Phosphatase 84 Total Protein 5.9 L Albumin 2.8 L Globulin 3.1 Albumin/Globulin Ratio 0.9 L PFSH Social History household members: spouse Smoking Status: Never smoker Assessment & Plan Assessment & Plan narrative: Obstructing right UVJ stone -status post stenting with return of flow and effective source control -Cross catheter per urology with removal day of discharge with voiding trial planned. UTI / Septic shock with 1/4 positive blood cultures for group C Streptococcus -10 days of IV Ceftriaxone tomorrow followed by 5 days of p.o. 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
--- NOTE | 2024-09-26 15:01 | CM.DPC ---
DCP SNF Planning: Per MD, pt remains on IV abx and will discontinue pt's Seroquel now that he is back on his home Lyrica and Cymbalta and to work more with PT and not yet stable for discharge. PT pending for today to determine pt's progress. KLARISSA spoke to [facility] admissions and they will continue to review to confirm pt stable on his home meds and no further Seroquel or Haldol needed (last Haldol was 09/24 before he started back on home meds). [facility] also wants to confirm spouse agreeable to pt d/c home from SNF if he plateaus and no longer making progress. Spouse unfortunately got tripped up and had fall in pt room and being assessed in ED due to some bruising. KLARISSA left msg with [facility] admissions phone and desk phone to determine if they have reviewed and if they can accept in order to provide the SNF options to spouse before auth submitted for [employer]. NEIL Calderón
--- NOTE | 2024-09-26 16:51 | PT.IPTN ---
Current Diagnoses Sepsis, unspecified organism (09/21/24) Acute kidney failure, unspecified (09/21/24) Calculus of ureter (09/21/24) Urinary tract infection, site not specified (09/21/24) Severe sepsis with septic shock (09/21/24) Surgery Performed Operation Date: 09/21/24 19:45 Actual Procedures p Cystoscopy w/ Ureteral Procedure Placement of Ureteral Stent(Right) - Yrn Maradiaga, Physical Therapy Treatment Note M2 PT-IP Current Condition Start: 09/24/24 13:48 Freq: NEEDED Status: Active Protocol: Document 09/25/24 09:30 AB (Rec: 09/25/24 13:56 AB [id number]) Physical Therapy Current Condition Current Condition Evaluation Date 09/25/24 Treatment Diagnosis septic shock; UIT; difficulty in walking Onset Date 09/21/24 M3 PT-IP Subjective Start: 09/24/24 13:48 Freq: NEEDED Status: Active Protocol: Document 09/26/24 16:51 DLM (Rec: 09/26/24 17:09 DLM [id number]) Subjective Physical Therapy Visit Type Type Treatment Note Visit Start Time 16:27 Visit Stop Time 16:51 Notes 24 minutes Number of STAFF COMMAND AND CONTROL OFFICER Visits 0 Physical Therapy Visit Comments Patient Comments He reports his fell and injured her knee. Patient Goals He wants to get home Therapy Pain Assessment Pain Present Pain Present Denied Pain M4 PT-IP Mobility and Gait Start: 09/24/24 13:48 Freq: NEEDED Status: Active Protocol: Document 09/26/24 16:51 DLM (Rec: 09/26/24 17:09 DLM [id number]) PT-Transfer Assessment Sit to and From Stand Sit to and from Stand Contact Guard Assistance,Use of Upper Extremities Equipment Transfer Assistive Device Gait Belt,Front Wheeled Walker Transfers Transfer Destination Chair Transfer Technique Stand Step Pivot Transfer Ability Level of Assist Contact Guard Assistance,Use of Upper Extremities Comments Mobility Comments Pt got up to recliner with nursing before this visit and wants to stay up. Nursing reports he needs one person assist to get out of bed. Pt sitting in a taller recliner with assists with his sit to stand. Gait Assessment Gait Gait Assistance Required: Contact Guard Assist Distance (Feet) 30 Assistive Devices Assistive Device Gait Belt,Front Wheeled Walker Gait Deviations General Gait Pattern Decreased Stride Length Factors Limiting Gait Function Factors Limiting Gait Function Decreased Activity Tolerance, Decreased Strength,Poor Balance Comments Gait Comments Slow pace with gait, he ambulated 25 feet, sat for rest break then able to ambulate 30 feet. Mild shortness of breath with each trial of gait. He needs extra time to manage the FWW around obstacles. PT-Balance Assessment Sitting Balance and Reactions Static Sitting Balance Ability Good Dynamic Sitting Balance Ability Good Standing Balance and Reactions Static Standing Balance Ability Fair Dynamic Standing Balance Ability Fair Device Used FWW M5 PT-IP Objective Assessments Start: 09/24/24 13:48 Freq: NEEDED Status: Active Protocol: Document 09/25/24 09:30 AB (Rec: 09/25/24 13:56 AB [id number]) Orientation Orientation/Cognition Level of Alertness Alert Orientation Name Language Function Ability No Deficits Noted,Hard of Hearing Safety Awareness Decreased Safety Awareness Memory Description Short Term Impaired Gross Range of Motion Lower Extremity ROM Assessment Within Functional Limits Strength Lower Extremity Strength Assessment Within Functional Limits Muscle Tone Muscle Tone WNL Yes M6 PT-IP Treatment Start: 09/24/24 13:48 Freq: NEEDED Status: Active Protocol: Document 09/26/24 16:51 DLM (Rec: 09/26/24 17:09 DLM [id number]) Physical Therapy Treatment Exercises Exercises Ankle Pumps,Seated Knee Flexion/Extension,Shoulder Flexion Education Education Provided Safety Other Treatments Other Treatment Performed seated Exercises listed above and seated hip flexion x 10 reps each exercise on each extremity He is unable to use his cell phone today to call his due to impaired cognition and decreased UE coordination. M7 PT-IP Assessment and Plan Start: 09/24/24 13:48 Freq: NEEDED Status: Active Protocol: Document 09/26/24 16:51 DLM (Rec: 09/26/24 17:09 DLM [id number]) PT Summary Assessment and Plan Summary Impairments Pain,Strength,Balance, Coordination,Cognition,Bed Mobility,Transfers,Gait, Activity Tolerance Progress Towards Goals Progressing Toward Goals Assessment Summary Attila is alert and sitting up in the recliner today. He shows good progress this visit and needs only one person assistance. He continues to be forgetful. He did not recall that he is at [facility]. His distance of gait improved this visit with the FWW and one person assist. Unfortunately it appears his suffered a fall with injury today and will not be able to assist him at home. Continue to recommend SNF rehab at discharge. Attila continues to be pleasant and cooperative with all care. Goals Bed Mobility Goal Independent Transfer Goal Standby Assistance,Front Wheeled Walker Gait Goal Standby Assistance,Front Wheel Walker Gait Distance 150 feet Other Goals up/down 4 steps with SBA and bilateral rails Days to Meet Goals 7 Frequency of Treatment Frequency Of Treatment Once a Day Treatment Plan Physical Therapy Treatment Plan Bed Mobility Training,Transfer Training,Gait Training, Therapeutic Exercise,Balance Retraining,Discharge Planning, Neuromuscular Re-ed, Coordination Retraining Precautions Other Precautions fall risk Recommendations To Nursing Amount of Assist Needed 1 Person Assist Discharge Recommendations PT Discharge Recommendations SNF Rehab Transportation Needs at Discharge Private Vehicle,Wheelchair/ Cabulance - PT assist 1P
[2024-09-26] MEDS: cefTRIAXone 2,000 MG in SODIUM CHLORIDE 0.9% 100 ML 200 MG IV (18:07)
[2024-09-26] MEDS: INSULIN GLARGINE 100 UNIT/ML 3ML PEN 15 UNIT SUBCUT (20:35)
[2024-09-26] MEDS: MELATONIN 3 MG TABLET 6 MG PO (20:35)
[2024-09-27] VITALS (13 sets, daily range): BP systolic 131–155; BP diastolic 73–89; PULSE 91–128; RESP 16–22; TEMP 36.2–38.6; O2SAT 91–95
[2024-09-27 05:28] LABS: Add Manual Diff / Slide Review NO; Basophils Absolute Auto 0 /uL (0-100); Basophils Percent Auto 0.7 % (0-2); Eosinophils Absolute Auto 100 /uL (0-450); Hematocrit 26.6 % (41-53); Hemoglobin 8.8 g/dL (13.5-17.5); Lymphocytes Absolute Auto 900 /uL (1100-4500); Lymphocytes Percent Auto 15.3 % (25-40); Mean Corpuscular HGB Conc 33.2 % (30-36); Mean Corpuscular Hemoglobin 29.1 PG (26-34); Mean Corpuscular Volume 87.6 fL (80-100); Monocytes Absolute Auto 400 /uL (0-900); Monocytes Percent Auto 7.7 % (3-14); Neutrophils Absolute Auto 4300 /uL (1500-7000); Neutrophils Percent Auto 74.3 % (50-75); Platelet Count 107 X10^3/uL (150-400); Red Blood Cell Count 3.04 X10^6/uL (4.5-5.9); Red Cell Distribution Width 18.5 % (11.6-14.8); White Blood Cell Count 5.8 X10^3/uL (4.5-11.0)
[2024-09-27 05:47] LABS: BUN Creatinine Ratio 15.9 (6-22); Blood Urea Nitrogen 13 mg/dL (9-20); Calcium 8.5 mg/dL (8.4-10.2); Carbon Dioxide 27 mmol/L (22-32); Chloride 105 mmol/L (98-107); Estimated Glomerular Filt Rate > 60 mL/min (>60); Glucose 161 mg/dL (80-110); HEMOLYSIS < 15 (0-50); Sodium 137 mmol/L (137-145)
--- NOTE | 2024-09-27 07:43 | PM.PN.IH.1 ---
Subjective Subjective Date Patient Seen: 09/27/24 Time Patient Seen: 07:50 Interval history: Chief complaint: Hypotension and symptomatic orthostasis with shock post ureteral procedure History of present illness: 79 y/o with PMH of kidney stones, recent treatment with chemotherapy and chest radiation for neoplasm 6 weeks prior to admission, admitted with obstructing ureteral stone, UTI, sepsis with shock, had IVFs, abx, pressor and urgently taken to OR by urology for stenting. Seen postop in ICU. Asleep after the procedure, on IVFs, off pressor initially. Unable to participate with ROM. Patient was admitted to ICU overnight placed on Levophed and intravenous fluids normal saline at 200 an hour maintaining a an AP of greater than 60-65 without symptomatology. Hospital course: 09/22: Maintained in AP 60-65 overnight with IV fluids at 200 an hour normal saline as well as Levophed. Patient has good urine output Nursing staff was able to titrate Levophed dose down. Patient is not having any significant physical complaints at this time was able to stand with assistance and transfer to commode without orthostasis. Patient had no acute distress heart and lungs are clear Can continue to titrate down Levophed reduce IV fluids to 100 09/23: 1/4 g positive cocci group C Streptococcus on blood culture Weaned off of pressors Will need 10 days antibiotics 5 days of IV high-dose ceftriaxone 09/24: Confused and agitated overnight discussed with who mentioned that this sometimes happens in this manner when his dose of Lyrica and Cymbalta is missed. These were not continued on the home med rec and were resumed today. We will observe the effect No fevers or chills overnight We will discuss discharge planning may need acute rehab prior to going home 09/25: Confusion improved after resume Lyrica and Cymbalta 09/26: Mildly confused, feeling better. No complaints, persistently weak. SNF planned Saturday. 09/27: The patient has no complaints. Awaiting placement. Exam Vital Signs (past 8 hours): - 09/27/24 00:00 09/27/24 04:00 Temperature 97.7 F 98.5 F Pulse Rate 95 H 101 H Respiratory Rate 21 22 Blood Pressure 135/74 143/84 H Pulse Oximetry 93 95 Oxygen Delivery Method Room Air Oxygen Flow Rate 0 Narrative Exam Narrative: Elderly patient alert but confused in wanting to get into bed when he is already in bed t HEENT unremarkable Neck no JVD Heart rate and rhythm regular no murmurs appreciated Lungs clear from apices to bases Abdomen nondistended Neurologic nonfocal but confused Objective Imaging Abdomen-pelvis CT 09/21/2024:: Radiologist's impression: Several nonobstructing bilateral intrarenal calculi as described. Right-sided bladder wall calculus versus UVJ calculus without causing proximal obstruction. This may also have been recently passed. This was not previously present. Echo 09/23/2024:: Radiologist's impression: 1) Normal left ventricular thickness and size with low normal systolic function (EF 50-55%). 2) Normal right ventricular size and function. 3) There is mild mitral regurgitation. 4) The right ventricular systolic pressure is estimated to be at least 39 mmHg based on an estimated right atrial pressure of 8 mm Hg. 5) Compared to the Echo done 03/23/2020, LVEF has decreased slightly from 55- 60% to 50-55% on this study. Labs 09/27/24 04:45 09/27/24 04:45 Labs: Laboratory Results - last 24 hr 09/27/24 04:45 WBC 5.8 RBC 3.04 L Hgb 8.8 L Hct 26.6 L MCV 87.6 MCH 29.1 MCHC 33.2 RDW 18.5 H Plt Count 107 L Neut % (Auto) 74.3 Lymph % (Auto) 15.3 L [place] % (Auto) 7.7 Eos % (Auto) 2.0 Baso % (Auto) 0.7 Neut # (Auto) 4300 Lymph # (Auto) 900 L [place] # (Auto) 400 Eos # (Auto) 100 Baso # (Auto) 0 Sodium 137 Potassium 4.0 Chloride 105 Carbon Dioxide 27 BUN 13 Creatinine 0.82 Estimated GFR > 60 BUN/Creatinine Ratio 15.9 Glucose 161 H Calcium 8.5 PFSH Social History household members: spouse Smoking Status: Never smoker Assessment & Plan Assessment & Plan narrative: Obstructing right UVJ stone -status post stenting with return of flow and effective source control -Cross catheter per urology with removal day of discharge with voiding trial planned. UTI / Septic shock with 1/4 positive blood cultures for group C Streptococcus -10 days of antibiotics, continue IV Ceftriaxone and switch tomorrow to 4 more days of p.o. Cefdinir. -we will continue ceftriaxone through the weekend intravenous CRISTOFER / CKD back to baseline - resolved with normal renal function, question CKD diagnosis Anemia - stable, likely chronic disease/inflammatory block - monitored HH - DVT prophylaxis with SCDs Acute Hypoxic Respiratory Failure in the setting of sepsis - postop atelectasis and sepsis most likely - repeat CXR negative for aspiration Hypokalemia - replete and resolved. Cognitive impairment - chronic and stable per , not formally assess. DULCE: 09/28 to SNF Care updated with and patient. Quality VTE Deep Vein Thrombosis/Pulmonary Embolism Present on Admission: No [employer] [employer] Document charge(s): No Charge Codes Subsequent inpatient/observation care: [id number]
[2024-09-27] MEDS: INSULIN LISPRO 100 UNIT/ML 3ML VIAL SUBCUT ×4 (07:56→21:02)
[2024-09-27] MEDS: PREGABALIN 75 MG CAPSULE 150 MG PO ×2 (09:29→21:02)
[2024-09-27] MEDS: COLCHICINE 0.6 MG TABLET PO ×2 (09:29→21:02)
[2024-09-27] MEDS: DULOXETINE 30 MG CAPSULE PO (09:29)
[2024-09-27] MEDS: PANTOPRAZOLE 40 MG VIAL IV (09:30)
[2024-09-27] MEDS: SODIUM CHLORIDE 0.9% FLUSH 10 ML IV ×2 (09:54→21:03)
--- NOTE | 2024-09-27 11:17 | PT.IPTN ---
Current Diagnoses Sepsis, unspecified organism (09/21/24) Acute kidney failure, unspecified (09/21/24) Calculus of ureter (09/21/24) Urinary tract infection, site not specified (09/21/24) Severe sepsis with septic shock (09/21/24) Surgery Performed Operation Date: 09/21/24 19:45 Actual Procedures p Cystoscopy w/ Ureteral Procedure Placement of Ureteral Stent(Right) - Ynr Maradiaga, Physical Therapy Treatment Note M2 PT-IP Current Condition Start: 09/24/24 13:48 Freq: NEEDED Status: Active Protocol: Document 09/25/24 09:30 AB (Rec: 09/25/24 13:56 AB [id number]) Physical Therapy Current Condition Current Condition Evaluation Date 09/25/24 Treatment Diagnosis septic shock; UIT; difficulty in walking Onset Date 09/21/24 M3 PT-IP Subjective Start: 09/24/24 13:48 Freq: NEEDED Status: Active Protocol: Document 09/27/24 11:10 AMB (Rec: 09/27/24 11:17 AMB [id number]) Subjective Physical Therapy Visit Type Type Treatment Note Visit Start Time 10:45 Visit Stop Time 11:10 Number of AUTOMOBILE SERVICE ADVISOR Visits 0 Physical Therapy Visit Comments Patient Comments Pt is sleeping when PT enters room, but he is willing to participate. M4 PT-IP Mobility and Gait Start: 09/24/24 13:48 Freq: NEEDED Status: Active Protocol: Document 09/27/24 11:10 AMB (Rec: 09/27/24 11:17 AMB [id number]) PT-Bed Mobility Assessment Supine to Sit Supine to Sit Moderate Assistance,1 Person Assistance,Head of Bed Elevated,Bedrails Sit to Supine Sit to Supine Minimal Assistance,1 Person Assistance,Head of Bed Elevated PT-Transfer Assessment Sit to and From Stand Sit to and from Stand Contact Guard Assistance,Use of Upper Extremities Equipment Transfer Assistive Device Gait Belt,Front Wheeled Walker Transfers Transfer Destination Bed,Toilet Transfer Technique Stand Step Pivot Transfer Ability Level of Assist Contact Guard Assistance,Use of Upper Extremities Comments Mobility Comments Pt was in his bed and needed ModA to move from sidelying to sit, able to stand up from bed with CGA, then needed CGA to perform toilet transfer. Gait Assessment Gait Gait Assistance Required: Contact Guard Assist Distance (Feet) 10 Assistive Devices Assistive Device Gait Belt,Front Wheeled Walker Gait Deviations General Gait Pattern Decreased Stride Length Factors Limiting Gait Function Factors Limiting Gait Function Decreased Activity Tolerance, Decreased Strength,Poor Balance Comments Gait Comments Pt reports significant fatigue after getting up and trying to have a BM in the bathroom, so ambulated with CGA and FWW to hallway outside his room and then back to bed. PT-Balance Assessment Sitting Balance and Reactions Static Sitting Balance Ability Good Dynamic Sitting Balance Ability Good Standing Balance and Reactions Static Standing Balance Ability Fair Dynamic Standing Balance Ability Fair Device Used FWW M5 PT-IP Objective Assessments Start: 09/24/24 13:48 Freq: NEEDED Status: Active Protocol: Document 09/25/24 09:30 AB (Rec: 09/25/24 13:56 AB [id number]) Orientation Orientation/Cognition Level of Alertness Alert Orientation Name Language Function Ability No Deficits Noted,Hard of Hearing Safety Awareness Decreased Safety Awareness Memory Description Short Term Impaired Gross Range of Motion Lower Extremity ROM Assessment Within Functional Limits Strength Lower Extremity Strength Assessment Within Functional Limits Muscle Tone Muscle Tone WNL Yes M6 PT-IP Treatment Start: 09/24/24 13:48 Freq: NEEDED Status: Active Protocol: Document 09/26/24 16:51 DLM (Rec: 09/26/24 17:09 DLM [id number]) Physical Therapy Treatment Exercises Exercises Ankle Pumps,Seated Knee Flexion/Extension,Shoulder Flexion Education Education Provided Safety Other Treatments Other Treatment Performed seated Exercises listed above and seated hip flexion x 10 reps each exercise on each extremity He is unable to use his cell phone today to call his due to impaired cognition and decreased UE coordination. M7 PT-IP Assessment and Plan Start: 09/24/24 13:48 Freq: NEEDED Status: Active Protocol: Document 09/27/24 11:10 AMB (Rec: 09/27/24 11:17 AMB [id number]) PT Summary Assessment and Plan Summary Impairments Pain,Strength,Balance, Coordination,Cognition,Bed Mobility,Transfers,Gait, Activity Tolerance Progress Towards Goals Progressing Toward Goals Assessment Summary Attila would continue to benefit from SNF rehab when he is medically stable to d/c given his significant fatigue. He was able to perform all gait with CGA and bed mobility to get out of bed with ModA and back into bed with Abraham, however his energy level continues to be a major barrier to his rehab. Goals Bed Mobility Goal Independent Transfer Goal Standby Assistance,Front Wheeled Walker Gait Goal Standby Assistance,Front Wheel Walker Gait Distance 150 feet Other Goals up/down 4 steps with SBA and bilateral rails Days to Meet Goals 6 Frequency of Treatment Frequency Of Treatment Once a Day Treatment Plan Physical Therapy Treatment Plan Bed Mobility Training,Transfer Training,Gait Training, Therapeutic Exercise,Balance Retraining,Discharge Planning, Neuromuscular Re-ed, Coordination Retraining Recommendations To Nursing Amount of Assist Needed 1 Person Assist Discharge Recommendations PT Discharge Recommendations SNF Rehab Transportation Needs at Discharge Private Vehicle,Wheelchair/ Cabulance - PT assist 1
--- NOTE | 2024-09-27 13:52 | CM.DPC ---
DCP SNF Cont: Per MD, pt making improvements and likely ready for d/c to SNF tomorrow Thursday 09/28. Per PT, pt improved with mobility and no longer 2PA but now 1PA with FWW and increased his distance but still recommending SNF. Per [facility] admissions, they can accept pt if MD documents that Onc agreeable with holding Onc Tx while pt is at SNF and SW updated MD and he confirm no Onc tx while at SNF and while pt has the infection. [facility] submitted for [employer] auth and waiting to confirm if pt's loco will be discontinued and if he will need precautions at d/c. SW met bedside with pt and spouse and they confirm that they still feel SNF needed and preference is [facility] and aware that pt might be ready for d/c tomorrow and [employer] auth pending. Spouse injured he knee cap yesterday and in a knee immobilizer but no restrictions to weight bearing and ambulating independently. Pt's son will drive up from [place] at d/c to provide any assist to pt and spouse as needed. Plan: SW to follow for plan of [facility] tomorrow Sat if he remains medically stable and [employer] SNF auth. NEIL Calderón
--- NOTE | 2024-09-27 14:17 | PC.NURSE ---
shift note; Pt AAO x 3, MAEW. VSS. transferred to rm [id number], report given to Carole Adame
[2024-09-27] MEDS: cefTRIAXone 2,000 MG in SODIUM CHLORIDE 0.9% 100 ML 200 MG IV (17:49)
[2024-09-27] MEDS: HYDROMORPHONE 0.5 MG INJ IV (19:54)
[2024-09-27] MEDS: MELATONIN 3 MG TABLET 6 MG PO (21:02)
[2024-09-27] MEDS: INSULIN GLARGINE 100 UNIT/ML 3ML PEN 15 UNIT SUBCUT (21:02)
[2024-09-27] MEDS: ACETAMINOPHEN 325 MG TABLET 975 MG PO (21:35)
[2024-09-28 00:30] VITALS: TEMP 38.3
[2024-09-28 03:55] VITALS: BP 107/61; PULSE 109; RESP 16; TEMP 36.5; O2SAT 92
[2024-09-28 08:00] VITALS: BP 120/78; PULSE 113; RESP 18; TEMP 37.5; O2SAT 92
[2024-09-28] MEDS: PREGABALIN 75 MG CAPSULE 150 MG PO ×2 (08:18→21:00)
[2024-09-28] MEDS: SODIUM CHLORIDE 0.9% FLUSH 10 ML IV ×2 (08:18→21:01)
[2024-09-28] MEDS: COLCHICINE 0.6 MG TABLET PO ×2 (08:18→21:00)
[2024-09-28] MEDS: DULOXETINE 30 MG CAPSULE PO (08:18)
[2024-09-28] MEDS: PANTOPRAZOLE 40 MG VIAL IV (08:18)
[2024-09-28] MEDS: INSULIN LISPRO 100 UNIT/ML 3ML VIAL SUBCUT ×2 (12:14→21:00)
--- NOTE | 2024-09-28 13:46 | P.PN_ITS ---
Subjective Subjective Interval history: S: Somnolent. No distress. I met with his who notes he has been improving on a daily basis. Chief complaint: Hypotension and symptomatic orthostasis with shock post ureteral procedure History of present illness: 79 y/o with PMH of kidney stones, recent treatment with chemotherapy and chest radiation for neoplasm 6 weeks prior to admission, admitted with obstructing ureteral stone, UTI, sepsis with shock, had IVFs, abx, pressor and urgently taken to OR by urology for stenting. Seen postop in ICU. Asleep after the procedure, on IVFs, off pressor initially. Unable to participate with ROM. Patient was admitted to ICU overnight placed on Levophed and intravenous fluids normal saline at 200 an hour maintaining a an AP of greater than 60-65 without symptomatology. Hospital course: 09/22: Maintained in AP 60-65 overnight with IV fluids at 200 an hour normal saline as well as Levophed. Patient has good urine output Nursing staff was able to titrate Levophed dose down. Patient is not having any significant physical complaints at this time was able to stand with assistance and transfer to [facility] without orthostasis. Patient had no acute distress heart and lungs are clear Can continue to titrate down Levophed reduce IV fluids to 100 09/23: 1/4 g positive cocci group C Streptococcus on blood culture Weaned off of pressors Will need 10 days antibiotics 5 days of IV high-dose ceftriaxone 09/24: Confused and agitated overnight discussed with who mentioned that this sometimes happens in this manner when his dose of Lyrica and Cymbalta is missed. These were not continued on the home med rec and were resumed today. We will observe the effect No fevers or chills overnight We will discuss discharge planning may need acute rehab prior to going home 09/25: Confusion improved after resume Lyrica and Cymbalta 09/26: Mildly confused, feeling better. No complaints, persistently weak. SNF planned Saturday. 09/27: The patient has no complaints. Awaiting placement. 09/28: NAD. Low grade fever overnight. Cross removed for voiding trial. Discussed with urology (Hiren). Exam Vital Signs (past 8 hours): - 09/28/24 08:00 Temperature 99.5 F Pulse Rate 113 H Respiratory Rate 18 Blood Pressure 120/78 Pulse Oximetry 92 Oxygen Flow Rate 0 Oxygen Delivery Method Room Air Oxygen Flow Rate 0 Narrative Exam Narrative: NAD, Somnolent. Lungs are clear, normal rate and effort. Heart is regular, no murmur gallop or rub. Abdomen is soft, non distended. Extremities are free of edema. Objective Imaging Multiple studies:: Radiologist's impression: Abdomen-pelvis CT 09/21/2024: Radiologist's impression: Several nonobstructing bilateral intrarenal calculi as described. Right-sided bladder wall calculus versus UVJ calculus without causing proximal obstruction. This may also have been recently passed. This was not previously present. Echo 09/23/2024: Radiologist's impression: 1) Normal left ventricular thickness and size with low normal systolic function (EF 50-55%). 2) Normal right ventricular size and function. 3) There is mild mitral regurgitation. 4) The right ventricular systolic pressure is estimated to be at least 39 mmHg based on an estimated right atrial pressure of 8 mm Hg. 5) Compared to the Echo done 03/23/2020, LVEF has decreased slightly from 55- 60% to 50-55% on this study. Labs 09/27/24 04:45 09/27/24 04:45 [facility] Social History household members: spouse Smoking Status: Never smoker Assessment & Plan Assessment & Plan narrative: 1. Obstructing right UVJ stone, present on admission and improved. -status post stenting with return of flow and effective source control -Cross catheter per urology with removal day of discharge with voiding trial planned. 2. Septic shock with 1/4 positive blood cultures for group C Streptococcus, present on admission and improved. -10 days of antibiotics, continue IV Ceftriaxone and switch tomorrow to 4 more days of p.o. Cefdinir. -we will continue ceftriaxone through the weekend intravenous 3. Obstructive pyelonephritis, present on admission and improving. 4. Bacteremia, present on admission. 5. CRISTOFER on CKD, present on admission and returned to baseline function. - resolved with normal renal function, question CKD diagnosis 6.Anemia, stable. - stable, likely chronic disease/inflammatory block - monitored HH - DVT prophylaxis with SCDs 7. Acute hypoxic respiratory failure, present on admission and resolved. - postop atelectasis and sepsis most likely - repeat CXR negative for aspiration 8. Hypokalemia, present on admission and resolved. - replete and resolved. 9. Cognitive impairment, stable. - chronic and stable per , not formally assess. PLAN: -continue antibiotics as noted above. -awaiting authorization for custodial facility. -monitor fevers and WBC. DULCE: 09/29 to SNF Time-Based Coding :: [TOTAL MINUTES] spent with patient and on the chart (including review of chart, obtaining history, exam, reviewing outside data, placing orders, documenting exam and treatment plan, and counseling patient) on [DATE]. Quality VTE Deep Vein Thrombosis/Pulmonary Embolism Present on Admission: No
[2024-09-28 16:00] VITALS: BP 125/83; PULSE 101; RESP 16; TEMP 37; O2SAT 89
--- NOTE | 2024-09-28 16:05 | CM.DPC ---
DCP SNF Cont: Per MD, pt medically stable to d/c to SNF. SW called [facility] admissions and they confirm that [employer] auth is still pending and still no determination by end of day today. Plan: Hopeful d/c to [facility] tomorrow Tues if [employer] auth obtained. PAS[facility] needs signature. NEIL Calderón
--- NOTE | 2024-09-28 16:16 | PT.IPTN ---
Current Diagnoses Sepsis, unspecified organism (09/21/24) Acute kidney failure, unspecified (09/21/24) Calculus of ureter (09/21/24) Urinary tract infection, site not specified (09/21/24) Severe sepsis with septic shock (09/21/24) Surgery Performed Operation Date: 09/21/24 19:45 Actual Procedures p Cystoscopy w/ Ureteral Procedure Placement of Ureteral Stent(Right) - Yrn Maradiaga, Physical Therapy Treatment Note M2 PT-IP Current Condition Start: 09/24/24 13:48 Freq: NEEDED Status: Active Protocol: Document 09/25/24 09:30 AB (Rec: 09/25/24 13:56 AB [id number]) Physical Therapy Current Condition Current Condition Evaluation Date 09/25/24 Treatment Diagnosis septic shock; UIT; difficulty in walking Onset Date 09/21/24 M3 PT-IP Subjective Start: 09/24/24 13:48 Freq: NEEDED Status: Active Protocol: Document 09/28/24 15:40 MB (Rec: 09/28/24 16:16 MB [id number]) Subjective Physical Therapy Visit Type Type Treatment Note Visit Start Time 15:40 Visit Stop Time 15:51 Number of INSPECTOR Visits 0 Physical Therapy Visit Comments Patient Comments Pt sitting up in chair with nearby and is agreeable to PT. Therapy Pain Assessment Pain Present Pain Present Denied Pain M4 PT-IP Mobility and Gait Start: 09/24/24 13:48 Freq: NEEDED Status: Active Protocol: Document 09/28/24 15:40 MB (Rec: 09/28/24 16:16 MB [id number]) PT-Transfer Assessment Sit to and From Stand Sit to and from Stand Contact Guard Assistance,Use of Upper Extremities Equipment Transfer Assistive Device Gait Belt,Front Wheeled Walker Transfers Transfer Destination Chair Transfer Technique Ambulation Transfer Ability Level of Assist Contact Guard Assistance,Use of Upper Extremities Comments Mobility Comments Cues to push up from the chair and not to reach for walker. Gait Assessment Gait Gait Assistance Required: Contact Guard Assist Distance (Feet) 80 Assistive Devices Assistive Device Gait Belt,Front Wheeled Walker Gait Deviations General Gait Pattern Decreased Stride Length Factors Limiting Gait Function Factors Limiting Gait Function Difficulty Following Directions,Poor Balance,Poor Safety Awareness Comments Gait Comments Pt with severe forward head posture with SB to the left and he has poor visual scanning to the right with gait and he tends to look ahead or to the left and slows and speed gait. Heels touch one another occ with gait and PT challenges him with right turning and scanning with gait in hallway, poor cognition and safety awareness. PT-Balance Assessment Sitting Balance and Reactions Static Sitting Balance Ability Good Dynamic Sitting Balance Ability Fair Standing Balance and Reactions Static Standing Balance Ability Fair Dynamic Standing Balance Ability Fair Device Used FWW M5 PT-IP Objective Assessments Start: 09/24/24 13:48 Freq: NEEDED Status: Active Protocol: Document 09/25/24 09:30 AB (Rec: 09/25/24 13:56 AB [id number]) Orientation Orientation/Cognition Level of Alertness Alert Orientation Name Language Function Ability No Deficits Noted,Hard of Hearing Safety Awareness Decreased Safety Awareness Memory Description Short Term Impaired Gross Range of Motion Lower Extremity ROM Assessment Within Functional Limits Strength Lower Extremity Strength Assessment Within Functional Limits Muscle Tone Muscle Tone WNL Yes M6 PT-IP Treatment Start: 09/24/24 13:48 Freq: NEEDED Status: Active Protocol: Document 09/26/24 16:51 DLM (Rec: 09/26/24 17:09 DLM [id number]) Physical Therapy Treatment Exercises Exercises Ankle Pumps,Seated Knee Flexion/Extension,Shoulder Flexion Education Education Provided Safety Other Treatments Other Treatment Performed seated Exercises listed above and seated hip flexion x 10 reps each exercise on each extremity He is unable to use his cell phone today to call his due to impaired cognition and decreased UE coordination. M7 PT-IP Assessment and Plan Start: 09/24/24 13:48 Freq: NEEDED Status: Active Protocol: Document 09/28/24 15:40 MB (Rec: 09/28/24 16:16 MB [id number]) PT Summary Assessment and Plan Potential Rehabilitation Potential Fair Status of Condition at Evaluation Evolving Summary Impairments Pain,ROM,Balance,Coordination, Cognition,Bed Mobility, Transfers,Gait,Activity Tolerance Progress Towards Goals Progressing Toward Goals Assessment Summary Pt presents with severe spinal changes at neck, forward head , upper body with right translation and right shoulder higher than the left. He presents with decreased attention to task, poor visual scanning and turning head to the right with gait and heels occ approximating with gait. His peng is festinating in nature: slow and then stopping and then speeding up and he has poor attention to task. He does increase gait distance today. Goals Bed Mobility Goal Independent Transfer Goal Standby Assistance,Front Wheeled Walker Gait Goal Standby Assistance,Front Wheel Walker Gait Distance 150 feet Other Goals up/down 4 steps with SBA and bilateral rails Days to Meet Goals 6 Frequency of Treatment Frequency Of Treatment Once a Day Treatment Plan Physical Therapy Treatment Plan Bed Mobility Training,Transfer Training,Gait Training, Therapeutic Exercise,Balance Retraining,Discharge Planning, Neuromuscular Re-ed, Coordination Retraining Other Recommendations and Next Treatment Con't to work on right Focus scanning and turns Precautions Other Precautions Fall risk Recommendations To Nursing Amount of Assist Needed 1 Person Assist Discharge Recommendations PT Discharge Recommendations SNF Rehab Transportation Needs at Discharge Private Vehicle,Wheelchair/ Cabulance - PT assist x1
[2024-09-28] MEDS: cefTRIAXone 2,000 MG in SODIUM CHLORIDE 0.9% 100 ML 200 MG IV (18:10)
[2024-09-28 19:00] VITALS: BP 127/70; PULSE 86; RESP 20; TEMP 36.7; O2SAT 90
[2024-09-28] MEDS: INSULIN GLARGINE 100 UNIT/ML 3ML PEN 18 UNIT SUBCUT (21:00)
[2024-09-28] MEDS: MELATONIN 3 MG TABLET 6 MG PO (21:00)
[2024-09-28] MEDS: ACETAMINOPHEN 325 MG TABLET 975 MG PO (23:01)
[2024-09-29 02:00] VITALS: BP 133/89; PULSE 90; RESP 20; TEMP 36; O2SAT 96
[2024-09-29] MEDS: ACETAMINOPHEN 325 MG TABLET 975 MG PO ×2 (06:52→22:31)
[2024-09-29 08:00] VITALS: BP 148/80; PULSE 91; RESP 16; TEMP 36.3; O2SAT 92
[2024-09-29] MEDS: COLCHICINE 0.6 MG TABLET PO ×2 (08:08→20:24)
[2024-09-29] MEDS: INSULIN LISPRO 100 UNIT/ML 3ML VIAL SUBCUT ×4 (08:08→20:27)
[2024-09-29] MEDS: PREGABALIN 75 MG CAPSULE 150 MG PO ×2 (08:09→20:24)
[2024-09-29] MEDS: PANTOPRAZOLE 40 MG VIAL IV (08:09)
[2024-09-29] MEDS: DULOXETINE 30 MG CAPSULE PO (08:09)
[2024-09-29] MEDS: SODIUM CHLORIDE 0.9% FLUSH 10 ML IV ×2 (08:09→20:24)
--- NOTE | 2024-09-29 10:34 | DIET.CONS ---
Dietary Consultation Note Admission Date: 09/21/2024 18:50 Assessment: 79 y M admitted for obstructing ureteral stone, UTI, and sepsis with shock. Dietitian screened for LOS. Met with pt at bedside. present. Reports within last week has had decline in appetite, not interested in eating. Usually has good appetite with regular meals. Notes pt had treatment of chemo and chest radiation for 6 weeks before admission. This started in July of this year and patient has been loosing weight since. Variable PO intakes averaging <50%, has been getting Ensure plus 2x/day. Will only drink if cold. 3 unopened ones sitting on table. Discussed availability of cold Ensures in fridge on floor pt can have between meals to support PO intakes. Ht: 187.96 cm Wt: 73.5 kg BMI: 20.8 UBW: 81 kg per pt's (-10% weight loss in 3 months, severe) Last BM: 09/28/24 (09/28/24 18:00) MNA: Julian Score: 14 Diet: 09/22/24 Lunch Carbohydrate Consistent Diet Diet Modifications: Carbohydrate level: Medium (3 CHO) Reflex DM orders: No Food Texture: Level 7 - Regular Liquid Consistency: Level 0 - Thin Nutrition Percent Meal Consumed 25% 09/29/24 09:31 Percent Meal Consumed 0% 09/28/24 18:00 Percent Meal Consumed 75% 09/27/24 18:00 Labs: RBC 3.04 X10^6/uL (4.5-5.9) L 09/27/24 04:45 Hgb 8.8 g/dL (13.5-17.5) L 09/27/24 04:45 Hct 26.6 % (41-53) L 09/27/24 04:45 Creatinine 0.82 mg/dL (0.66-1.25) 09/27/24 04:45 Hemoglobin A1c 5.9 % (4.0-6.0) 09/22/24 03:50 Lactate 1.0 mmol/L (0.7-2.1) 09/23/24 01:25 NT-Pro-B Natriuret Pep 2570 pg/mL (<450) H 09/23/24 01:25 Nutrition Diagnosis: Severe acute Protein Calorie Malnutrition r/t inadequate protein-energy intake with increased protein-energy needs in setting of chemo and radiation treatment aeb 10% weight loss within 3 months (severe), BMI underweight for age (20.8) and <50% of estimated energy in 7 days Interventions: -Encouraged cold Ensure plus BID-TID EER: 2100-2434 kcals (25-27 kcals/kg per BMI) 85 g protein (1.2g/kg per sepsis, possible CKD, cancer) Monitoring/Evaluations: intake of ONS, PO intakes Electronically Signed by: Lolis Hudson 09/29/24 10:34 Clinical Dietitian [address] [address]
--- NOTE | 2024-09-29 11:05 | PT.IPTN ---
Current Diagnoses Sepsis, unspecified organism (09/21/24) Acute kidney failure, unspecified (09/21/24) Calculus of ureter (09/21/24) Urinary tract infection, site not specified (09/21/24) Severe sepsis with septic shock (09/21/24) Surgery Performed Operation Date: 09/21/24 19:45 Actual Procedures p Cystoscopy w/ Ureteral Procedure Placement of Ureteral Stent(Right) - Yrn Maradiaga, Physical Therapy Treatment Note M2 PT-IP Current Condition Start: 09/24/24 13:48 Freq: NEEDED Status: Active Protocol: Document 09/25/24 09:30 AB (Rec: 09/25/24 13:56 AB [id number]) Physical Therapy Current Condition Current Condition Evaluation Date 09/25/24 Treatment Diagnosis septic shock; UIT; difficulty in walking Onset Date 09/21/24 M3 PT-IP Subjective Start: 09/24/24 13:48 Freq: NEEDED Status: Active Protocol: Document 09/29/24 10:25 KS (Rec: 09/29/24 12:29 KS [id number]) Subjective Physical Therapy Visit Type Type Treatment Note Visit Start Time 10:25 Visit Stop Time 11:05 Number of CYLINDER INSPECTOR AND TESTER Visits 1 Physical Therapy Visit Comments Patient Comments Pt in bed upon arrival, in room. Therapy Pain Assessment Pain Present Pain Present Denied Pain M4 PT-IP Mobility and Gait Start: 09/24/24 13:48 Freq: NEEDED Status: Active Protocol: Document 09/29/24 10:25 KS (Rec: 09/29/24 12:29 KS [id number]) PT-Bed Mobility Assessment Supine to Sit Supine to Sit Moderate Assistance,1 Person Assistance,Head of Bed Elevated,Bedrails Scooting Scooting to Edge of Bed Minimal Assistance PT-Transfer Assessment Sit to and From Stand Sit to and from Stand Contact Guard Assistance,Use of Upper Extremities Equipment Transfer Assistive Device Gait Belt,Front Wheeled Walker Transfers Transfer Destination Bed,Chair Transfer Technique Ambulation Transfer Ability Level of Assist Contact Guard Assistance,Use of Upper Extremities Gait Assessment Gait Gait Assistance Required: Contact Guard Assist Distance (Feet) 15 Assistive Devices Assistive Device Gait Belt,Front Wheeled Walker Gait Deviations General Gait Pattern Decreased Stride Length Factors Limiting Gait Function Factors Limiting Gait Function Decreased Activity Tolerance, Difficulty Following Directions,Poor Balance,Poor Safety Awareness Comments Gait Comments Pt in bed upon arrival and agreeable to work w/ PT. Able to complete BLE exercises in bed. Mod A for sup<>Sit, Min A for scooting EOB, CGA for sit <>stand w/ FWW. Pt ambulated ~ 5ft to chair and sat to rest. After a few minutes he agreed to walk again although reported high fatigue. CGA for sit<>Stand w/ FWW. Pt ambulated ~15 ft to other side of bed w/ FWW CGA before needing a seated rest break due to fatigue. Pt then stood and walked another 5 ft but then became dizzy and requested to sit down. BP 113/ 64. Pt took seated rest break and waited for dizziness to subside before sambulating additional 15 ft back to chair . Pt left in chair w/ in room and all needs in reach. PT-Balance Assessment Sitting Balance and Reactions Static Sitting Balance Ability Good Dynamic Sitting Balance Ability Fair Standing Balance and Reactions Static Standing Balance Ability Fair Dynamic Standing Balance Ability Fair Device Used FWW M5 PT-IP Objective Assessments Start: 09/24/24 13:48 Freq: NEEDED Status: Active Protocol: Document 09/25/24 09:30 AB (Rec: 09/25/24 13:56 AB [id number]) Orientation Orientation/Cognition Level of Alertness Alert Orientation Name Language Function Ability No Deficits Noted,Hard of Hearing Safety Awareness Decreased Safety Awareness Memory Description Short Term Impaired Gross Range of Motion Lower Extremity ROM Assessment Within Functional Limits Strength Lower Extremity Strength Assessment Within Functional Limits Muscle Tone Muscle Tone WNL Yes M6 PT-IP Treatment Start: 09/24/24 13:48 Freq: NEEDED Status: Active Protocol: Document 09/29/24 10:25 KS (Rec: 09/29/24 12:29 KS [id number]) Physical Therapy Treatment Exercises Exercises Ankle Pumps,Gluteal Sets,Quad Sets,Heel Slides Education Education Provided Safety M7 PT-IP Assessment and Plan Start: 09/24/24 13:48 Freq: NEEDED Status: Active Protocol: Document 09/29/24 10:25 KS (Rec: 09/29/24 12:29 KS [id number]) PT Summary Assessment and Plan Potential Rehabilitation Potential Fair Summary Impairments Pain,ROM,Balance,Coordination, Cognition,Bed Mobility, Transfers,Gait,Activity Tolerance Progress Towards Goals Slow Progress due to Medical Issues,Slow Progress due to Activity Tolerance Assessment Summary Pt limited by fatigue, weakness, and dizziness this AM. Requires Mod A for bed mobility and CGA and cues for transfers and ambulation w/ FWW. Pt unable to progress gait distance due to dizziness and fatigue, requiring multiple seated rest breaks. Pt will benefit from SNF to improve strength and functional mobility. Goals Bed Mobility Goal Independent Transfer Goal Standby Assistance,Front Wheeled Walker Gait Goal Standby Assistance,Front Wheel Walker Gait Distance 150 feet Other Goals up/down 4 steps with SBA and bilateral rails Days to Meet Goals 6 Frequency of Treatment Frequency Of Treatment Once a Day Treatment Plan Physical Therapy Treatment Plan Bed Mobility Training,Transfer Training,Gait Training, Therapeutic Exercise,Balance Retraining,Discharge Planning, Neuromuscular Re-ed, Coordination Retraining Other Recommendations and Next Treatment Con't to work on right Focus scanning and turns Precautions Other Precautions Fall risk Recommendations To Nursing Amount of Assist Needed 1 Person Assist Discharge Recommendations PT Discharge Recommendations SNF Rehab Transportation Needs at Discharge Private Vehicle,Wheelchair/ Cabulance - PT assist x1
[2024-09-29 12:00] VITALS: BP 113/64; PULSE 90; RESP 16; TEMP 36.4; O2SAT 94
--- NOTE | 2024-09-29 13:40 | PM.PN.1 ---
Subjective Subjective Interval history: S: Doing well. He denies pain or dyspnea. No flank pain. Hospital course: 09/22: Maintained in AP 60-65 overnight with IV fluids at 200 an hour normal saline as well as Levophed. Patient has good urine output Nursing staff was able to titrate Levophed dose down. Patient is not having any significant physical complaints at this time was able to stand with assistance and transfer to commode without orthostasis. Patient had no acute distress heart and lungs are clear Can continue to titrate down Levophed reduce IV fluids to 100 09/23: 1/4 g positive cocci group C Streptococcus on blood culture Weaned off of pressors Will need 10 days antibiotics 5 days of IV high-dose ceftriaxone 09/24: Confused and agitated overnight discussed with who mentioned that this sometimes happens in this manner when his dose of Lyrica and Cymbalta is missed. These were not continued on the home med rec and were resumed today. We will observe the effect No fevers or chills overnight We will discuss discharge planning may need acute rehab prior to going home 09/25: Confusion improved after resume Lyrica and Cymbalta 09/26: Mildly confused, feeling better. No complaints, persistently weak. SNF planned Saturday. 09/27: The patient has no complaints. Awaiting placement. 09/28: NAD. Low grade fever overnight. Cross removed for voiding trial. Discussed with urology (Hiren). Exam Vital Signs (past 8 hours): - 09/29/24 08:00 09/29/24 08:00 09/29/24 12:00 Temperature 97.3 F L 97.6 F Pulse Rate 91 H 90 Respiratory Rate 16 16 Blood Pressure 148/80 H 113/64 Pulse Oximetry 92 94 Oxygen Delivery Method Room Air Oxygen Flow Rate 0 Oxygen Delivery Method Room Air Oxygen Flow Rate 0 Narrative Exam Narrative: NAD, alert and oriented. Fluent speech. Lungs are clear, normal rate and effort. Heart is regular, no murmur gallop or rub. Abdomen is soft, non distended. Extremities are free of edema. Objective Labs 09/27/24 04:45 09/27/24 04:45 PFSH Social History household members: spouse Smoking Status: Never smoker Assessment & Plan Assessment & Plan narrative: 1. Obstructing right UVJ stone, present on admission and improved. -status post stenting with return of flow and effective source control -Cross catheter per urology with removal day of discharge with voiding trial planned. 2. Septic shock with 1/4 positive blood cultures for group C Streptococcus, present on admission and improved. -10 days of antibiotics, continue IV Ceftriaxone and switch tomorrow to 4 more days of p.o. Cefdinir. -we will continue ceftriaxone through the weekend intravenous 3. Obstructive pyelonephritis, present on admission and improving. 4. Bacteremia, present on admission and improving. 5. CRISTOFER on CKD, present on admission and returned to baseline function. - resolved with normal renal function, question CKD diagnosis 6.Anemia, stable. - stable, likely chronic disease/inflammatory block - monitored HH - DVT prophylaxis with SCDs 7. Acute hypoxic respiratory failure, present on admission and resolved. - postop atelectasis and sepsis most likely - repeat CXR negative for aspiration 8. Hypokalemia, present on admission and resolved. - replete and resolved. 9. Cognitive impairment, stable. - chronic and stable per , not formally assess. PLAN: -continue antibiotics (IV Ceftriaxone) as noted above. -awaiting authorization for [facility]. -monitor fevers and WBC. DULCE: 09/29 to SNF, awaiting approval from tna. Time-Based Coding :: [TOTAL MINUTES] spent with patient and on the chart (including review of chart, obtaining history, exam, reviewing outside data, placing orders, documenting exam and treatment plan, and counseling patient) on [DATE]. Quality VTE Deep Vein Thrombosis/Pulmonary Embolism Present on Admission: No
[2024-09-29] MEDS: MAG HYDROX/ALUM/SIMETH 30 ML UDC PO (15:19)
[2024-09-29] MEDS: HYDROMORPHONE 0.5 MG INJ IV ×3 (15:46→20:24)
[2024-09-29 16:00] VITALS: BP 117/78; RESP 92; TEMP 36.7; O2SAT 94
[2024-09-29] MEDS: cefTRIAXone 2,000 MG in SODIUM CHLORIDE 0.9% 100 ML 200 MG IV (18:18)
[2024-09-29 20:00] VITALS: BP 139/89; PULSE 116; RESP 18; TEMP 36.3; O2SAT 93
[2024-09-29] MEDS: MELATONIN 3 MG TABLET 6 MG PO (20:23)
[2024-09-29] MEDS: INSULIN GLARGINE 100 UNIT/ML 3ML PEN 22 UNIT SUBCUT (20:29)
[2024-09-29] MEDS: OXYCODONE ER 10 MG TAB 5 MG PO (23:30)
[2024-09-30] VITALS: BP 127/87; PULSE 104; RESP 20; TEMP 36.9; O2SAT 92
[2024-09-30] MEDS: HYDROMORPHONE 0.5 MG INJ IV (03:45)
[2024-09-30 04:00] VITALS: BP 148/88; PULSE 83; RESP 19; TEMP 36.3; O2SAT 93
[2024-09-30] MEDS: ACETAMINOPHEN 325 MG TABLET 975 MG PO (06:01)
[2024-09-30 08:00] VITALS: BP 139/91; PULSE 85; RESP 24; TEMP 36; O2SAT 95
[2024-09-30] MEDS: PREGABALIN 75 MG CAPSULE 150 MG PO (08:22)
[2024-09-30] MEDS: INSULIN LISPRO 100 UNIT/ML 3ML VIAL SUBCUT ×2 (08:22→12:01)
[2024-09-30] MEDS: DULOXETINE 30 MG CAPSULE PO (08:23)
[2024-09-30] MEDS: COLCHICINE 0.6 MG TABLET PO (08:24)
[2024-09-30] MEDS: OXYCODONE IR 5 MG TABLET PO ×2 (08:33→14:30)
[2024-09-30] MEDS: SODIUM CHLORIDE 0.9% FLUSH 10 ML IV (08:34)
[2024-09-30 12:00] VITALS: BP 99/62; PULSE 96; RESP 18; TEMP 35.9; O2SAT 95
--- NOTE | 2024-09-30 12:12 | PM.DS.1 ---
History of Present Illness History of Present Illness Chief complaint: Weakness Narrative: From H&P: 79 y/o with PMH of kidney stones, admitted with obstructing ureteral stone, UTI, sepsis with shock, had IVFs, abx, pressor and urgently taken to OR by urology for stenting. Seen postop in ICU. Asleep after the procedure, on IVFs, off pressor initially. Unable to participate with ROM. Discharge Providers Provider Date of admission: 09/21/24 18:50 Discharge Date: 09/30/24 Primary care physician: Ras Jay MD Consults: 09/22/24 11:12 Consult to Hospitalist Service Routine Comment: Consulting Provider: Jefefrson Montague Reason for consultation: Vasopressors 09/24/24 07:12 Consult to Physical Therapy Evaluate & Treat Comment: needs post discharge Physician Instructions: Evaluate and Treat 09/30/24 12:07 Consult to Urology Routine Comment: Consulting Provider: Yrn Maradiaga Reason for consultation: obstructive stones Has provider been notified: Yes Discharge provider: Niall Naylor MD Summary Hospital Course Discharge Diagnosis: 1. Obstructing right UVJ stone, present on admission and improved. -status post stenting with return of flow and effective source control 2. Septic shock with 1/4 positive blood cultures for group C Streptococcus, present on admission and improved. Repeat cultures on 09/25 negative. 3. Obstructive pyelonephritis, present on admission and improving. Urine culture negative. 4. Bacteremia (2/2 blood cultures positive on 09/21 for Group C Strep pos) , present on admission and improving. 5. CRISTOFER on CKD, present on admission and returned to baseline function. 6.Anemia, stable. - stable, likely chronic disease/inflammatory block 7. Acute hypoxic respiratory failure, present on admission and resolved. - postop atelectasis and sepsis most likely 8. Hypokalemia, present on admission and resolved. - replete and resolved. 9. Cognitive impairment, stable. - chronic and stable per , not formally assess. Hospital Course: He was admitted with septic shock and an obstructing kidney stone. He underwent ureter stenting. He was able to wean off from norepinephrine over the next day and a half. He did have positive blood cultures and urine culture. 09/22: Maintained in AP 60-65 overnight with IV fluids at 200 an hour normal saline as well as Levophed. Patient has good urine output Nursing staff was able to titrate Levophed dose down. Patient is not having any significant physical complaints at this time was able to stand with assistance and transfer to commode without orthostasis. Patient had no acute distress heart and lungs are clear Can continue to titrate down Levophed reduce IV fluids to 100 09/23: 1/4 g positive cocci group C Streptococcus on blood culture Weaned off of pressors Will need 10 days antibiotics 5 days of IV high-dose ceftriaxone 09/24: Confused and agitated overnight discussed with who mentioned that this sometimes happens in this manner when his dose of Lyrica and Cymbalta is missed. These were not continued on the home med rec and were resumed today. We will observe the effect No fevers or chills overnight We will discuss discharge planning may need acute rehab prior to going home 09/25: Confusion improved after resume Lyrica and Cymbalta 09/26: Mildly confused, feeling better. No complaints, persistently weak. SNF planned Saturday. 09/27: The patient has no complaints. Awaiting placement. 09/28: NAD. Low grade fever overnight. Cross removed for voiding trial. Discussed with urology (Hiren). Status at Discharge Cognitive/behavioral status at discharge: at baseline, confused Functional status at discharge: uses cane/walker Overall status at discharge: patient is progressing back to baseline Time Spent with Patient Time spent: Greater than 30 minutes Exam Vital Signs (past 8 hours): - 09/30/24 08:00 Temperature 96.8 F L Pulse Rate 85 Respiratory Rate 24 Blood Pressure 139/91 H Pulse Oximetry 95 Oxygen Delivery Method Room Air Oxygen Flow Rate 0 Narrative Exam Narrative: NAD, alert and oriented to person and place. Fluent speech. Lungs are clear, normal rate and effort. Heart is regular, no murmur gallop or rub. Abdomen is soft, non distended. Extremities are free of edema. Objective ECG Impression: Intervals [place] Rate: 97 P: 51 [place]: 136 QRS: 14 QRSD: 90 T: 37 QT: 370 QTc: 469 Interpretive Statements Normal sinus rhythm Imaging Multiple studies:: Radiologist's impression: Echo: 1) Normal left ventricular thickness and size with low normal systolic function (EF 50-55%). 2) Normal right ventricular size and function. 3) There is mild mitral regurgitation. 4) The right ventricular systolic pressure is estimated to be at least 39 mmHg based on an estimated right atrial pressure of 8 mm Hg. 5) Compared to the Echo done 03/23/2020, LVEF has decreased slightly from 55- 60% to 50-55% on this study. Chest x-ray: No acute cardiopulmonary abnormality is seen. Abdomen and pelvis CT: Several nonobstructing bilateral intrarenal calculi as described. Right-sided bladder wall calculus versus UVJ calculus without causing proximal obstruction. This may also have been recently passed. This was not previously present. Chest x-ray: No acute cardiopulmonary abnormality is seen. Labs 09/27/24 04:45 09/27/24 04:45 [facility] Social History household members: spouse Smoking Status: Never smoker Discharge Assessment & Plan Assessment and Plan Assessment: 1. Obstructing right UVJ stone, present on admission and improved. -status post stenting with return of flow and effective source control 2. Septic shock with 1/4 positive blood cultures for group C Streptococcus, present on admission and improved. Repeat cultures on 09/25 negative. 3. Obstructive pyelonephritis, present on admission and improving. Urine culture negative. 4. Bacteremia (2/2 blood cultures positive on 09/21 for Group C Strep pos) , present on admission and improving. 5. CRISTOFER on CKD, present on admission and returned to baseline function. Plan of Treatment: We will complete 3 more days of IV ceftriaxone. We will reassess clinically and decide whether or not he needs any additional oral antibiotics. This will be close to 14 days of IV antibiotics total. Discharge Plan Discharge Plan Patient Disposition: SNF Transfer to: [facility] Under care of provider: SNF Doctor Provider Discharge Comment: Stable for discharge to shelter facility. Discharge orders & Medications Prescriptions: New ceftriaxone 2 gram Recon Soln 2,000 mg IV Q24H Qty: 3 0RF oxycodone 5 mg Tablet 5 mg PO Q4HR PRN (Reason: Pain, Moderate (4-6)) Qty: 15 0RF Continued diclofenac-misoprostol [Arthrotec 75] 75 MG/200 MCG tablet,IR,delayed rel,biphasic 1 tab PO QDAY Qty: 0 telmisartan-hydrochlorothiazid [Micardis HCT] 80 MG/25 MG tablet 1 tab PO QDAY Qty: 0 metformin 500 mg tablet 500 mg PO 3XD folic acid 400 mcg tablet 0.4 mg PO DAILY tamsulosin 0.4 mg capsule 0.8 mg PO DAILY pregabalin 150 mg capsule 150 mg PO BID duloxetine 30 mg capsule,delayed release(DR/EC) 30 mg PO ONCE PM Medication counseling provided by Pharmacist: No Follow up/Referrals: Ras Jay MD [Primary Care Provider] - Discharge Health Status Multidrug resistant organism: No MDRO Diet/Activity/Treatments Diet: Carb-consistent/Diabetic Liquid consistency: Normal/Thin Food texture: Regular Activity: Per PT and OT, no restrictions. Skin/Wound/Dressing Care Report to your healthcare provider any signs of infection, such as:: chills, fever, increased pain and unusual drainage Special Rehabilitation Services Reason for rehabilitation: Recovery r/t decondition Rehab type: Physical therapy and Occupational therapy Visit Report/Discharge Packet Instructions: DI for Kidney Infection, DI for Cystoscopy, DI for Bacteremia-Adult Stand Alone Forms: Patient Portal/API Discharge Data Primary Care Provider: Ras Jay Quality VTE Deep Vein Thrombosis/Pulmonary Embolism Present on Admission: No
--- NOTE | 2024-09-30 12:19 | CM.DPC ---
DCP Cont. Reviewed EMR and team rounds for status updates. Pt has been medically cleared for d/c to [facility] today, they will transport him at 2:30pm today. Faxed [facility] and d/c clinicals. No further CM d/c needs are identified at this time.
--- NOTE | 2024-09-30 15:07 | PC.NURSE ---
Day shift: Called [facility] and gave report to admitting nurse, Serina. PIV removed and port de-accessed prior to discharge by VANE Willis. All belongings send with patient. Gave discharge packet to [facility] transport. [facility] transport took patient via wheelchair.
== END 2024-09-30 14:45 | DRG 871 ==
LOC: ED 15:37 → AC 19:06 → ICU 09-22 06:24 → AC 09-22 12:08 → ICU 09-22 12:08 → AC 09-27 14:23
PROVIDERS: Hospitalist; Internal Medicine; Pharmacist Pharmacist Clinician (PhC)/ Clinical Pharmacy Specialist; Admitting Provider Internal Medicine; Emergency Provider Emergency Medicine; PCP Family Medicine; Referring Provider Emergency Medicine; Visit Provider Urology
PROC: 0T9 Urinary System, Drainage (ICD-10-PCS; principal; 2024-09-21 19:45)
DX: A40.8 Other streptococcal sepsis (principal); J96.01 Acute respiratory failure with hypoxia; R65.21 Severe sepsis with septic shock; N13.6 Pyonephrosis; N17.9 Acute kidney failure, unspecified; N18.9 Chronic kidney disease, unspecified; E87.6 Hypokalemia; G31.84 Mild cognitive impairment of uncertain or unknown etiology; I12.9 Hypertensive chronic kidney disease with stage 1 through stage 4 chronic kidney disease, or unspecified chronic kidney disease; E11.22 Type 2 diabetes mellitus with diabetic chronic kidney disease; D63.1 Anemia in chronic kidney disease; Z95.828 Presence of other vascular implants and grafts; Z85.118 Personal history of other malignant neoplasm of bronchus and lung; Z79.84 Long term (current) use of oral hypoglycemic drugs
CPT/HCPCS: 0241U; 36415; 36591; 36600; 52332; 71045; 74018; 74176; 74420; 76000; 80048; 80053; 81001; 82550; 82805; 82962; 83036; 83605; 83690; 83880; 84145; 84484; 85025; 85027; 85610; 85730; 86850; 86900; 86901; 87040; 87077; 87086; 87147; 87154; 87186; 87797; 93005; 93010; 93306; 94640; 96365; 96366; 96367; 97110; 97116; 97163; 97530; 99222; 99232; 99233; 99285; 99291; 99292; C2617; J0131; J0692; J0696; J1171; J1630; J1642; J1815; J2470; J2919; Q9967

== ENCOUNTER → 2024-10-20 15:16 | Outpatient (CLI) | payer MEDICARE, SELFPAY ==
[2024-09-22 13:25] VITALS: BMI 22.8
[2024-10-20 16:17] LABS: Appearance Urine UA SL CLOUDY; Bilirubin Urine UA NEGATIVE (NEGATIVE); Glucose Urine UA NEGATIVE (Negative); Ketones Urine UA NEGATIVE (NEGATIVE); Leukocyte Esterase Urine UA 1+ (NEGATIVE); Nitrite Urine UA NEGATIVE (Negative); Occult Blood Urine UA 3+ (Negative); Protein Urine UA 2+ (Negative); Urobilinogen Urine UA 0.2 E.U./dL (0.2); pH Urine UA 6.5 (4.5-8.0)
[2024-10-20 16:18] LABS: Color Urine UA PINK
[2024-10-20 16:19] LABS: Bacteria Urine Occasional (0-1); Culture Indicated Urine Specimen Cultured; Mucus Urine 1+ (Negative); RBC Urine >100/HPF (0-5/HPF); Squamous Epithelial Cell Urine 0-1 /HPF (0-5/HPF); Urine Volume 10mL (spun); WBC Urine 1-5/HPF (0-5/HPF)
[2024-10-20 17:19] LABS: Add Manual Diff / Slide Review NO; Basophils Absolute Auto 0 /uL (0-100); Basophils Percent Auto 0.6 % (0-2); Eosinophils Absolute Auto 100 /uL (0-450); Eosinophils Percent Auto 3.6 % (2-4); Hemoglobin 10.1 g/dL (13.5-17.5); Lymphocytes Absolute Auto 700 /uL (1100-4500); Lymphocytes Percent Auto 18.2 % (25-40); Mean Corpuscular HGB Conc 32.6 % (30-36); Mean Corpuscular Hemoglobin 29.4 PG (26-34); Mean Corpuscular Volume 90.1 fL (80-100); Monocytes Absolute Auto 300 /uL (0-900); Monocytes Percent Auto 8.2 % (3-14); Neutrophils Absolute Auto 2700 /uL (1500-7000); Neutrophils Percent Auto 69.4 % (50-75); Platelet Count 98 X10^3/uL (150-400); Red Blood Cell Count 3.44 X10^6/uL (4.5-5.9); Red Cell Distribution Width 18.9 % (11.6-14.8); White Blood Cell Count 3.9 X10^3/uL (4.5-11.0)
== END ==
PROVIDERS: PCP Family Medicine; Referring Provider Radiology Radiation Oncology; Visit Provider Radiology Radiation Oncology
DX: C34.31 Malignant neoplasm of lower lobe, right bronchus or lung (principal); R31.9 Hematuria, unspecified
CPT/HCPCS: 36415; 81001; 85025; 87077; 87086; 87186

== ENCOUNTER 2024-11-13 06:29 | Day surgery (SDC) | payer MEDICARE, SELFPAY ==
[2024-09-22 13:25] VITALS: BMI 22.8
[2024-11-02 13:40] VITALS: BMI 22.2
[2024-11-13] VITALS (9 sets, daily range): BP systolic 110–159; BP diastolic 61–89; PULSE 80–99; RESP 16–20; TEMP 36.2–37.2; O2SAT 92–98; BMI 10.5
--- NOTE | 2024-11-13 | DI.RAD.S_ITS ---
PROCEDURE: XR ABDOMEN 1V INDICATIONS: RT STENT PLACEMENT TECHNIQUE: 2 intra-operative images acquired by the Urology service. COMPARISON: [facility], CR, XR ABDOMEN 1V, 09/21/2024, 20:38. FINDINGS: Intraoperative images are provided for evaluation. There is opacification of the labeled right renal collecting system with hydronephrosis. Ureterovesicular stent is present. It is coiled within the renal pelvis extending to the bladder. IMPRESSION: Intraoperative ureterovesicular stent placement. Dictated by: Marge Mtz M.D. on 11/13/2024 at 11:49 Approved by: Marge Mtz M.D. on 11/13/2024 at 11:49
[2024-11-13] MEDS: LACTATED RINGERS 1,000 ML 42 ML IV (07:21)
[2024-11-13] MEDS: ALBUTEROL/IPRATROPIUM 3 ML AMPUL INH (07:22)
--- NOTE | 2024-11-13 07:34 | P.OP.PRE_ITS ---
Pre-operative Note COVID-19 COVID-19 status: Not tested Interval Note History & Physical reviewed/Exam performed by Physician: Yes Changes to H&P: Yes H&P completed within 30 days and has changed as indicated here:: His UCx was r esistant to the empiric antibiotics that I gave him at his preop on 30 October 2024, therefore, he was given a 7 day course of UCx directed antibiotics and his surgery was postponed from to 13 Nov 2024.
[2024-11-13] MEDS: VANCOMYCIN 1,000 MG in SODIUM CHLORIDE 0.9% 250 ML 250 MG IV (07:55)
--- NOTE | 2024-11-13 08:07 | SUR.OPER ---
Lithotomy on padded OR bed, head on pillow, arms secured on padded arm boards at <90 degrees abduction. Legs secured in padded yellow fins stirrups.
[2024-11-13] MEDS: iopamidoL 30 ML VIAL INJ (08:19)
--- NOTE | 2024-11-13 08:55 | PM.OP.1 ---
Operative Date/Time/Diagnoses Date of procedure: 11/13/24 Time of procedure: 08:00 Pre-op diagnosis: Right ureteral stone Post-op diagnosis: same Procedure & Clinicians Procedure: Cystoscopy Right retrograde ureteropyelogram Right ureteroscopy, laser lithotripsy Right ureteral stent exchange Intraoperative interpretation of fluoroscopic images, total time < 1 hour Same procedure as scheduled: Yes Indications: 79 y/o M w/ h/o nephrolithiasis who was noted to have a 6mm right UVJ calculus w/o upstream hydroureteronephrosis in the setting of a Tmax of 104.9, tachycardia and hypotension concerning for an ongoing urinary tract infection in September of 2024 that was managed acutely with a cystoscopy and right ureteral stent placement and returns today for his definitive stone management a cystoscopy, right ureteroscopy, laser lithotripsy and right ureteral stent exchange. Surgeon: Yrn Maradiaga Click Yes if Unassisted: Yes Anesthesia Type: General Operative Notes Findings: Right ureteral stones in distal and proximal ureter Closure Type: not applicable Specimen(s): other (right ureteral stone) Estimated Blood Loss (mL): 2 Blood products transfused: none Procedure in detail: Procedures: 1) Cystoscopy 2) Right retrograde ureteropyelogram 3) Right ureteroscopy, laser lithotripsy 4) Right ureteral stent exchange 5) Intraoperative interpretation of fluoroscopic images, < 1 hour, all images saved to PACS Indication: Patient was identified in the preoperative holding area and consent confirmed. He was then brought to the operating room where general anesthesia was induced.? He was placed in the low lithotomy position. He was then prepped and draped in the usual sterile fashion. A surgical timeout was conducted and all were in agreement. ?Access to the bladder was obtained via a 30 degree cystoscope.? Complete cystoscopy was then performed and no concerning bladder masses or lesions were appreciated.? Bilateral ureteral orifices were easily identified and noted to be orthotopic in nature.? The previously placed right ureteral stent was easily visualized and externalized using the stent grasper.? A 0.035 sensor tip ureteral guidewire was advanced through the stent and into the right renal pelvis.? The semirigid ureteroscope was then advanced alongside the aforementioned ureteral guidewire and into his distal right ureter where a large stone was visualized. Laser lithotripsy was then performed utilizing the 200 micron laser fiber.? All stone fragments >1mm in size were removed via the stone basket and sent for chemical analysis. The semirigid ureteroscope was then advanced into the right proximal ureter where an additional large stone was noted, laser lithotripsy and basket stone extraction were then repeated in similar fashion. The ureteral guidewire was advanced through the ureteroscope and into the right renal pelvis and the semirigid ureteroscope was removed. A 12/14Fr ureteral access sheath was then advanced over the ureteral guidewire and into the proximal right ureter.? The ureteral guidewire and inner obturator were then removed.? The flexible ureteroscope was then advanced through the ureteral access sheath and into the right renal collecting system. Complete pyeloscopy was then performed and no other stones were appreciated.? A retrograde pyelogram was then performed which noted no contrast extravasation.? The ureteral guidewire was then readvanced through the ureteroscope and into the right renal pelvis.? The ureter was then directly visualized upon removal of the ureteroscope and ureteral access sheath and noted to be stone free.? The cystoscope was then backloaded over the ureteral guidewire and advanced into the bladder.? A 6Fr multi-length JJ ureteral stent with strings was then advanced over the ureteral guidewire.? Upon removal of the guidewire, a good curl was noted within the right renal pelvis upon fluoroscopy and visually within the bladder.? The bladder was then drained and the cystoscope was removed.? Anesthesia was reversed, he was extubated in the OR and transferred to the PACU in stable condition for recovery. Complications: none Post-operative Condition: stable Disposition: PACU Plan for aftercare: Discharge home from PACU. Will remove his ureteral stent on the morning of 17 Nov 2024. Will return to Urology clinic in 3 months for a RBUS and stone analysis review.
[2024-11-13] MEDS: PHENAZOPYRIDINE 100 MG TABLET 200 MG PO (10:06)
== END 2024-11-13 10:34 | disposition home or self-care (01) ==
PROVIDERS: PCP Family Medicine; Referring Provider Urology; Visit Provider Urology
PROC: (CPT 52356; principal; 2024-11-13 07:45)
DX: N20.1 Calculus of ureter (principal)
CPT/HCPCS: 52356; 74018; 76000; 82365; 82962; C2617; J2405; J2704; Q9967

== ENCOUNTER → 2025-02-15 15:21 | Outpatient (CLI) | payer MEDICARE, SELFPAY ==
[2024-09-22 13:25] VITALS: BMI 22.8
--- NOTE | 2025-02-15 15:22 | DI.US.S_ITS ---
PROCEDURE: US RENAL COMPLETE INDICATIONS: History of Nephrolithiasis TECHNIQUE: Real-time scanning was performed of the kidneys and bladder, with image documentation. COMPARISON: [facility], CT, CT ABDOMEN PELVIS WO WILLIAMS, 09/21/2024, 17:54. FINDINGS: Kidneys: Kidneys are normal in size. Right kidney measures 10.6 cm long; left kidney measures 12.6 cm long. Right renal cortical thickness is 1.5 cm; left renal cortical thickness is 1.5 cm. Renal cortical echotexture is normal. No hydronephrosis or nephrolithiasis. No suspicious solid mass lesions. Right renal simple cysts, largest measuring 3.4 cm. Bladder: Pre-void bladder volume is 86 mL. Post-void residual was not obtained as patient was unable to void. Pre-void images demonstrate a thickened wall with some areas of irregularity. On pre-void images, bilateral ureteral jets are noted with color Doppler interrogation. (Of note, ureteral jets may not be detectable in up to 25% of cases due to insufficient differences in specific gravity between ureteral and bladder urine). Miscellaneous: No free pelvic fluid. IMPRESSION: 1. No renal stones or hydronephrosis. 2. Thickened urinary bladder wall with some areas of irregularity. Recommend correlation with urinary analysis. If there is any concern for malignancy, cystoscopy can be obtained. 3. Bladder volume of 86 mL, patient was unable to void. Dictated by: Chong Yi M.D. on 02/15/2025 at 16:52 Approved by: Chong Yi M.D. on 02/15/2025 at 16:55
== END ==
LOC: US 15:22
PROVIDERS: PCP Family Medicine; Referring Provider Urology; Visit Provider Urology
DX: N20.1 Calculus of ureter (principal); N20.0 Calculus of kidney; N28.1 Cyst of kidney, acquired
CPT/HCPCS: 76770